=== PATIENT | female | born 1990 | race Caucasian/White ===

== ENCOUNTER 2018-07-23 19:10 | Outpatient (CLI) | payer OTHER, SELFPAY ==
[2018-07-23 19:51] VITALS: BMI 48.3
[2018-07-23 19:54] LABS: Mucous, Urine 0 SEEN /hpf (<or=2+)
[2018-07-23 20:00] LABS: Color, Urine Yellow (Yellow); Glucose, Dipstick Normal (Normal); Ketone-Dipstick Negative (Negative); Leukocyte Esterase-Dipstick 25 /ul (Negative); Nitrite-Dipstick Negative (Negative); Occult Blood-Urine Negative /ul (Negative); Protein-Dipstick Negative (Negative); Urine Bilirubin Dipstick Negative (Negative); Urine Clarity Sl. Cloudy (Clear); Urine Urobilinogen Normal (Normal); Urine pH 6.5 (5.0 - 8.0)
[2018-07-23 20:06] LABS: Bacteria 2+ /hpf (None Seen); Red Blood Cells-Urine 0-5 SEEN /hpf (0-5); Squamous Epithelial Cells - UA 10-25 SEEN /hpf (5-10); White Blood Cells 0-5 SEEN /hpf (0-5)
[2018-07-23 20:24] LABS: ROM Internal Control Test YES-OK TO RESULT pt. (Internal QC)
[2018-07-23 20:27] LABS: ROM Patient Test Negative (Negative)
--- NOTE | 2018-07-25 07:08 | OB.TRI.NOTE ---
- Problem List (1) Lower abdominal pain Status: Acute History of Present Illness Date of Service: 07/23/18 Was patient seen by the physician?: No Reason For Visit: R/O LABOR Date of Service: 07/23/18 Final GINO: 08/25/18 Gestational age: 35 Weeks and 4 Days History of Present Illness: Pt presents with lower abd pain for r/o labor. No urinary symptoms. No vb, lof. +FM Allergies No Known Allergies Allergy (Verified 07/23/18 19:52) Laboratory Studies: Laboratory Tests 07/23/18 07/23/18 Range/Units 19:30 19:30 Urine Color Yellow (Yellow) Urine Clarity Sl. Cloudy (Clear) Urine pH 6.5 (5.0 - 8.0) Ur Specific [place] 1.010 (1.002-1.030) Urine Protein Negative (Negative) mg/dl Urine Glucose (UA) Normal (Normal) mg/dl Urine Ketones Negative (Negative) mg/dl Urine Occult Blood Negative (Negative) /ul Urine Nitrite Negative (Negative) Urine Bilirubin Negative (Negative) mg/dL Urine Urobilinogen Normal (Normal) mg/dl Ur Leukocyte Esterase 25 H (Negative) /ul Urine RBC 0-5 SEEN (0-5) /hpf Urine WBC 0-5 SEEN (0-5) /hpf Ur Squamous Epith Cells 10-25 SEEN (5-10) /hpf Urine Bacteria 2+ (None Seen) /hpf Urine Mucus 0 SEEN (<or=2+) /hpf Vag Amniotic Fld Detect Negative (Negative) Impression/Plan - Determine to not be in labor - Urine dip +leuks, urine cx sent
== END 2018-07-23 21:00 | disposition home or self-care (01) ==
LOC: WPOUT 19:37 → WP 19:39
PROVIDERS: Referring Provider Obstetrics & Gynecology; Visit Provider Obstetrics & Gynecology
DX: O26.893 Other specified pregnancy related conditions, third trimester (principal); R10.30 Lower abdominal pain, unspecified; Z3A.35 35 weeks gestation of pregnancy
CPT/HCPCS: 59025; 59050; 81001; 84112; 87086; 87088; 94760; 99218; G0378

== ENCOUNTER 2018-07-25 08:00 | Outpatient (CLI) | payer OTHER, SELFPAY ==
[2018-07-25 08:26] VITALS: BMI 49.1
--- NOTE | 2018-07-25 20:56 | OB.TRI.NOTE ---
History of Present Illness Date of Service: 07/25/18 Was patient seen by the physician?: No Reason For Visit: DECREASE MOVEMENT Date of Service: 07/25/18 Final GINO: 08/25/18 Gestational age: 35 Weeks and 4 Days Allergies No Known Allergies Allergy (Verified 07/23/18 19:52) NST - FHR Rate Baby A Baseline: 145 Variability:: Moderate Accelerations:: 15 x 15 Decelerations:: None NST Reactive:: Yes FHR Category:: Category I Uterine Activity:: quiet Impression/Plan 28-year-old 2 para 1 at 3 5-4/7 weeks gestation for decreased movement with reactive nonstress test. High risk multigravida with history of previous . Kick counts reviewed. Patient was discharged to the office for her routine appointment today.
--- NOTE | 2018-07-25 20:59 | OB.TRI.HP_ITS ---
History of Present Illness Date of Service: 07/25/18 Was patient seen by the physician?: No Reason For Visit: DECREASE MOVEMENT Date of Service: 07/25/18 Final GINO: 08/25/18 Gestational age: 35 Weeks and 4 Days Allergies No Known Allergies Allergy (Verified 07/23/18 19:52) NST - FHR Rate Baby A Baseline: 145 Variability:: Moderate Accelerations:: 15 x 15 Decelerations:: None NST Reactive:: Yes FHR Category:: Category I Uterine Activity:: quiet Impression/Plan 28-year-old 2 para 1 at 3 5-4/7 weeks gestation for decreased mov ement with reactive nonstress test. High risk multigravida with history of previous . Kick counts reviewed. Patient was discharged to the office for her routine appointment today.
== END 2018-07-25 09:00 | disposition home or self-care (01) ==
LOC: WPOUT 08:04 → OBT 08:04
PROVIDERS: Referring Provider Obstetrics & Gynecology; Visit Provider Obstetrics & Gynecology
DX: O36.8130 Decreased fetal movements, third trimester, not applicable or unspecified (principal); Z3A.35 35 weeks gestation of pregnancy; O34.219 Maternal care for unspecified type scar from previous cesarean delivery
CPT/HCPCS: 59025; 59050; 99218; G0378

== ENCOUNTER 2018-08-18 05:30 | Inpatient (IN) | payer OTHER, SELFPAY ==
--- NOTE | 2018-08-15 13:42 | PCM.HP.BLA ---
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 Denies CP, SOB, dizziness, visual changes. Pt reports good FM. Denies VB, LOF or regular Ctx. ? PAST?MEDICAL?HISTORY No past medical history on file. PAST?SURGICAL?HISTORY PAST SURGICAL HISTORY Procedure Laterality Date ? SECTION HX ? ? ? PAST SURGICAL HISTORY OF ? 2008 ? fatty tumor between breasts removed ? FAMILY?HISTORY FAMILY HISTORY Problem Relation Age of Onset ? Hypertension Father ? ? Cancer Maternal Grandfather ? ? Cancer Maternal Grandmother ? ? Cancer Paternal Grandfather ? ? Cancer Paternal Grandmother ? ? Cancer Mother ? ? Thyroid Mother ? ? No Known Problems Sister ? ? other ( at , unknown) Brother ? ? No Known Problems Daughter ? ? 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 CURRENT?MEDICATIONS ? Current Outpatient Medications: doxylamine-pyridoxine, vit B6, (DICLEGIS) 10-10 mg TbEC Take 2 tablets by mouth daily at bedtime. Day 1: Take 2 tabs at bedtime. If symptoms are controlled the next day, continue taking 2 tabs at bedtime. If symptoms persist into the afternoon of Day 2, take 2 tabs at bedtime, then 1 tab the morning of Day 3 and 2 tabs at bedtime. If symptoms are controlled on Day 4, continue with 1 tab in the morning and 2 tabs at bedtime. [id number]-[id number]-FA ( VITAMIN) tab Take 1 tablet by mouth. ? No current facility-administered medications for this visit. Allergies As of Date: 08/15/2018 (No Known Allergies) Fully Assessed 08/15/2018 ? ? REVIEW OF SYSTEMS Abdomen: no pain Bladder: no dysuria.. Expanded ROS: no fever Allergies and current medication updated:Yes ? EXAM: BP 138/78 Wt 256 lb (116.1kg) LMP 10/03/2017 ? GENERAL: pleasant, female in no apparent distress HEENT: Normocephalic and atraumatic NECK: full range of motion DERMATOLOGY: Normal, without lesions, non-icteric and non-hirsute CARDIAC: regular rate and rhythm CHEST: Clear to auscultation Normal inspiratory effort ABDOMEN: soft, non-tender and gravid NEURO: alert and oriented x3,exam grossly non-focal EXTREMITIES: normal ? ASSESSMENT AND PLAN: Encounter Diagnosis ? ? ICD-10-CM ? 1. Previous delivery, antepartum O34.219 URINE OB DIP B/O 2. 38 weeks gestation of Z3A.38 URINE OB DIP B/O ? 3. Consent obtained today 4. Pt has been counseled on risks/benefits and alternatives of surgery including but not limited to anesthesia, bleeding, infection, injury to pelvic structures including bowel, bladder, ureters and vessels. Pt wishes to proceed with surgery at this time. ? ? Alisson Gee MD ? ? ?
[2018-08-18] VITALS (21 sets, daily range): BP systolic 113–151; BP diastolic 64–93; PULSE 93–127; RESP 16–18; TEMP 36.1–36.4; O2SAT 97–100; BMI 48.9
[2018-08-18] MEDS: Lactated Ringers 1,000 ML 999 ML IV (05:46)
[2018-08-18 06:09] LABS: Absolute Lymphocyte Count 1.82 X10^3/ul (0.83-4.51); Absolute Neutrophil Count 7.5 X10^3/uL (2.0-7.7); Basophil# 0.01 X10^3/uL; Basophil% 0.1 % (0-1); Eosinophil# 0.04 X10^3/uL; Eosinophils% 0.4 % (0-5); Hematocrit 37.9 % (37-47); Hemoglobin 12.2 g/dl (12.0-15.0); Lymphocyte # 1.82 X10^3/ul (4.0); Lymphocyte % 17.8 % (19-41); Mean Corp Hgb Conc 32.2 g/gl (32-36); Mean Corpuscular Hgb 27.1 pg (27.0-32.0); Mean Platelet Vol. 10.3 fl (6.2-12.0); Monocyte# 0.78 X10^3/uL; Monocyte% 7.6 % (0-10); Neutrophil # 7.52 X10^3/uL (2.7-7.7); Neutrophil % 73.6 % (47-70); POSITIVE COUNT NO; POSITIVE DIFFERENTIAL NO; POSITIVE MORPHOLOGY NO; Platelet Count 203 K/mm3 (150-450); RBC Distribution Width CV 16.7 % (11.6-14.6); RBC Distribution Width SD 50.4 fl (35.1-43.9); Red Blood Count 4.51 M/mm3 (4.2-5.4); White Blood Count 10.2 K/mm3 (4.4-11.0)
[2018-08-18] MEDS: Lactated Ringers 1,000 ML 150 ML IV (06:44)
[2018-08-18] MEDS: Sodium Citrate/Citric Acid 30 ML UDC PO (07:07)
[2018-08-18] MEDS: Cefazolin 2 GM in 0.9% Normal Saline 100 ML IV (07:15)
[2018-08-18] MEDS: Oxytocin 30 units/NS 500 ml 30 UNITS/500 ML IV.SOLN 167 UNITS IV (07:51)
--- NOTE | 2018-08-18 08:18 | OP.PCM_ITS ---
Delivery Classification: Scheduled Final GINO: 08/25/18 Final GNIO Source: US <20 weeks Gestational age: 39 Weeks and 0 Days Indications for : Repeat Elective Description of Procedure: Surgeon: Dr. Alisson Gee President [employer]: NAKUL Kumar Procedure performed: Repeat section, Anesthesia: Spinal Preoperative diagnosis: Term gestation 39 weeks gestation for an elective repeat section, Postoperative Diagnosis: same- live male Findings: Live male infant born without complication. Nuchal ?1 loose. clear amniotic fluid. Delayed cord clamping performed. Normal tubes and ovaries bilaterally. EBL: 800cc Implantable devices: None Operative note: After informed consent was obtained the patient was taken to the operating room she was given spinal anesthesia. sHe was placed in the supine position. Young straps were placed - She was then prepped and draped in normal sterile fashion. once spinal anesthesia was found to be adequate skin incision was made with a scalpel in a Pfannenstiel fashion. It was carried down to the underlying layer of the fascia. Fascia was then incised midline with scapel and extended laterally using curved hernandez. 2 straight Frank's were placed in the superior aspect of the fascial edge and the rectus muscles were dissected off sharply. Attention was then turned to the inferior aspect where again the fascial edge was grasped with 2 straight Frank clamps tented up and the rectus muscle dissected sharply. At this time the rectus muscles were in the midline bluntly. Using blunt force the peritoneum was then entered. At this time gentle opposing traction was placed. At this time the vesicouterine peritoneum was identified. Uterine incision was made in a low transverse fashion with the scalpel and then entered bluntly. Gentle opposing traction was placed to extend the uterine incision. The membranes were ruptured amniotic fluid clear. 's head was then brought to the uterine incision was delivered atraumatically followed by the rest 's body. Nuchal x1 loose used prior to delivery. At this time delayed cord clamping was performed mouth nose were suctioned. was then handed to the waiting nursery team. The placenta was then removed with gentle traction. The uterus was removed from the intra-abdominal cavity is wrapped in a moist lap. He was cleared of all clots and debris using a moist lap. Ring clamps were placed on the uterine angles. #1 Vicryl suture was used in a running locked fashion for the first layer. Followed by second imbricating layer with #1 Vicryl. At this time then the uterus was placed back into abdominal cavity uterine incision was evaluated and noted to be of good hemostasis. Tubes and ovaries were evaluated they were normal. Great hemostasis was appreciated at this time the uterine incision was again evaluated good hemostasis was appreciated. The peritoneum was grasped with Kellys. Peritoneum was reapproximated using #2 Vicryl suture in a running fashion. Ximena was placed over the muscle layer. Any small oozing was coagulated using the Bovie. the fascia was then reapproximated using #1 pds in a running fashion. Subcutaneous layer was evaluated and Bovie was used for any small oozing that was noted per #2-0 plain gut suture was then used to reapproximate the subcutaneous layer. Ximena placed. 4-0 Vicryl on a Ignacio needle was used to reapproximate the skin in a subcutaneous fashion. Dry sterile dressing was applied. Instrument lap needle count were correct ?2. Anticipated normal postoperative course for this patient. Amniotic Membrane Rupture Type: Artificial Amniotic Fluid Description: Clear Placenta Disposition: [facility] Drain: Elias to straight drain Cord Entanglement: Around neck x 1, loose Cord Vessel Description: 3 Vessels Esitmated Blood Loss (ml): 800 Infant Gender: Male (1 minute): 8 (5 minute): 9 Delayed cord clamping: Yes Pre-op Antibiotic Given: Ancef 2 grams IV x1 Pt instructed on risks of surgery: Bleeding, Anesthesia Risks, Infection, Injury to surrounding structure(s) including bowel and bladder Complications: None - Admit VTE Documentation VTE Present on Admission: Yes VTE Mechan Device Prophylaxis: SCD's VTE Pharm Prophylaxis ordered?: Yes
[2018-08-18] MEDS: Methylergonovine 0.2 MG/ML Ampul IM (09:24)
[2018-08-18] MEDS: Lactated Ringers 1,000 ML 100 ML IV (09:25)
[2018-08-18] MEDS: 0.9% Saline Lock 10 ML Syringe IV ×2 (13:55→20:17)
[2018-08-18] MEDS: Ketorolac 30 MG/ML Syringe IV ×2 (14:01→20:16)
[2018-08-18] MEDS: Acetaminophen 500 MG Tablet 1000 MG PO (16:04)
[2018-08-18] MEDS: Senna/Docusate Sodium 1 Tablet PO (17:28)
[2018-08-19] VITALS (9 sets, daily range): BP systolic 126–148; BP diastolic 76–81; PULSE 97–130; RESP 16–18; TEMP 36.2–36.9; O2SAT 96–100
[2018-08-19] MEDS: Acetaminophen 500 MG Tablet 1000 MG PO ×3 (00:19→21:50)
[2018-08-19] MEDS: Ketorolac 30 MG/ML Syringe IV ×4 (02:44→20:16)
[2018-08-19] MEDS: 0.9% Saline Lock 10 ML Syringe IV ×4 (02:45→20:16)
[2018-08-19 04:44] LABS: Hematocrit 31.8 % (37-47); Hemoglobin 10.2 g/dl (12.0-15.0); Mean Corp Hgb Conc 32.1 g/gl (32-36); Mean Corpuscular Hgb 27.6 pg (27.0-32.0); Mean Corpuscular Volume 85.9 fL (81-99); Platelet Count 165 K/mm3 (150-450); RBC Distribution Width SD 52.8 fl (35.1-43.9); White Blood Count 9.5 K/mm3 (4.4-11.0)
[2018-08-19 04:46] LABS: Scan Indicated on CBC? Y/N NO
[2018-08-19] MEDS: Enoxaparin 40 MG/0.4 ML Syringe SC (06:00)
--- NOTE | 2018-08-19 07:54 | PCM.PN.OB ---
Subjective: Patient sitting up in bed at this time reporting intermittent sleep overnight. Patient working on latch with infant, she was told the may have a small tongue tie. getting tired at breast easily and has a shallow latch. Patient reports no pain with latch and denies any pain, bruising or ecchymoses. Patient reports that her incision pain is well controlled with Motrin and Toradol. She has not taken any PO narcotics at this time and is not planning on taking any medications. She denies any issues with ambulation or urination. Patient denies FAUSTIN, has a mild pinched nerve in neck that she has a heating pack applied to at this time to help decrease the pain. Objective: VSS, Afebrile Nipples everted no ecchymoses or cracks/blisters at nipple tips Abdomen NT x 4 quadrants, Dressing Dry and Intact +2/4 reflexes in LE, trace pedal edema noted, negative calf tenderness to palpation scant rubra lochia - Physical Exam General: Alert, Oriented x3, Cooperative HEENT: Atraumatic, Normocephalic Lungs: Normal air movement Cardiovascular: Regular rate, No murmurs Abdomen: Soft, Non Tender Extremities: No edema, Capillary Refill Less than 3 Seconds Skin: No rashes, No breakdown Musculoskeletal: No Tenderness to Palpation of Joints or Extremities Neurological: Cranial nerves II-XII grossly intact Psych/Mental Status: Normal Affect, Appropriate Vital Signs Temp Pulse Resp BP Pulse Ox 98.4 F 114 H 18 128/76 H 96 08/19/18 04:19 08/19/18 06:22 08/19/18 06:22 08/19/18 04:19 08/19/18 06:22 Oxygen Delivery Method Room Air Weight: 259 lb 0.69 oz Body Mass Index (BMI) 48.9 Intake and Output for Last 24 Hours 08/17/18 08/18/18 08/19/18 23:59 23:59 23:59 Intake Total 4356 / 4356 582 / 582 Output Total 2475 / 2475 450 / 450 Balance 1881 / 1881 132 / 132 Laboratory Tests Past 24 Hrs 08/19/18 04:25 WBC 9.5 RBC 3.70 L Hgb 10.2 L Hct 31.8 L MCV 85.9 MCH 27.6 MCHC 32.1 RDW 17.0 H RDW Differential 52.8 H Plt Count 165 MPV 10.0 Medical Necessity - Tobacco Use Smoking Status: Never smoker Assessment/Plan All Active Problems Lower abdominal pain (Acute) 28 y/o s/p rpt LTCS, POD #1, Normal PP Course P: 1) Continue present orders 2) Anticipate discharge to home tomorrow Taina LUX
[2018-08-19] MEDS: Senna/Docusate Sodium 1 Tablet PO (08:24)
[2018-08-20] MEDS: 0.9% Saline Lock 10 ML Syringe IV (02:16)
[2018-08-20] MEDS: Ketorolac 30 MG/ML Syringe IV (02:16)
[2018-08-20 02:22] VITALS: BP 134/79; PULSE 96; RESP 18; TEMP 36.5; O2SAT 100
[2018-08-20] MEDS: Enoxaparin 40 MG/0.4 ML Syringe SC (05:34)
[2018-08-20 07:19] VITALS: BP 127/72; PULSE 110; RESP 16; TEMP 36.7; O2SAT 99
[2018-08-20] MEDS: oxyCODONE 5 MG Tablet PO (07:40)
--- NOTE | 2018-08-20 07:44 | DCINST_ITS ---
Discharge Diet: No Restrictions Discharge Activity: May Not Drive - for 2 weeks or while taking narcotic pain meds., May Shower, May Take a Tub Bath - in 7 days. May resume sexual activity in: 4-6 weeks Lifting Restrictions: 20 pounds Additional Activity Instructions:: Nothing in the vagina for 4-6 weeks. You may return to work/school in 6 weeks. Call your doctor if your incision/area has: Continuous Slow Oozing, Sudden Increased Bleeding, Increased Pain/ Swelling, Increased Redness, Foul Smelling Discharge Call your doctor if you observe: Fever of 101 or Higher, Inability to urinate, Inability to have a bowel movement, Using more than one pad per hour, Uncontrolled pain Suture Line Care: Avoid Pulling/Pushing, Avoid Pinching/Bending Additional Instructions: If you experience any of the following, contact your healthcare provider. * Bleeding that soaks a pad every hour for 2 hours * Fever 100.4 or higher * Unrelieved incision or abdominal pain * Swelling, redness, discharge or bleeding from your incision or episiotomy site * Your incision begins to separate * Problems urinating (including inability to urinate or burning while urinating). * Visual changes * Severe headache * Flu-like symptoms * Pain or redness in one of both of your breasts * Pain, warmth, tenderness or swelling in your legs, especially the calf area * Frequent nausea and vomiting * Symptoms of depression or anxiety If you experience any of the following, call 911 or go to the nearest Emergency Room. * Chest pain * Problems breathing * Seizure activity * Partial or complete paralysis of a body part, slurred speech, weakness or drooping of the face, or a sudden inability to walk or hold your balance Allergies/Adverse Reactions: Allergies latex Allergy (Verified 08/18/18 06:25) Rash Medications to take at Discharge Vits [Prenatabs FA ] 1 tablet PO DAILY 07/23/18 Acetaminophen [Tylenol] 1,000 mg PO Q8H PRN #30 tab 08/20/18 Ibuprofen [Motrin] 600 mg PO Q6H PRN PRN #60 tab 08/20/18 Oxycodone [Oxyir] 5 - 10 mg PO Q4H PRN PRN 7 Days #10 tab 08/20/18 Senna/Docusate Sodium [Senokot-S] 1 tab PO DAILY PRN #7 tab 08/20/18 The following prescriptions were given: Ibuprofen [Motrin] 600 mg PO Q6H PRN PRN #60 tab PRN Reason: Mild Pain (1-04/23) Transmission Status: Pending to [facility] Oxycodone [Oxyir] 5 - 10 mg PO Q4H PRN PRN 7 Days #10 tab PRN Reason: Mod-Severe Pain (-11/23) Prescription Printed Senna/Docusate Sodium [Senokot-S] 1 tab PO DAILY PRN #7 tab PRN Reason: Constipation Transmission Status: Pending to [facility] Acetaminophen [Tylenol] 1,000 mg PO Q8H PRN #30 tab PRN Reason: Mild Pain (-04/23) Transmission Status: Pending to [facility] Follow-Up: Call to make an appointment with your doctor for an incision check in 1-2 weeks. You will also need a 6 week post- follow up appointment. Test results from this visit will be discussed in further detail at your follow- up appointment, if applicable. Please Follow Up With: Alisson Gee MD Primary Care Physician: Care Physician,No Primary [Primary Care Provider] - Proposed Discharge Date: 08/20/18
--- NOTE | 2018-08-20 07:45 | PCM.PN.OB ---
Subjective: Patient sitting up in bed, reports no issues this morning. Patient desires discharge to home. Notes that incision pain is well controlled and that she is able to ambulate and get up to bathroom without difficulty. Patient reports scant vaginal bleeding, denies any issues with latch or . Objective: VSS, Afebrile Nipples without cracks or blisters, no ecchymoses noted Abdomen NT x 4 quadrants, dressing dry and intact, FF midline 3FB below umbilicus +2/4 reflexes in LE, trace LE non-pitting edema scant rubra lochia - Physical Exam General: Alert, Oriented x3, Cooperative HEENT: Atraumatic, Normocephalic Lungs: Normal air movement Cardiovascular: Regular rate, Regular Rhythm Abdomen: Soft, Non Tender, - - Dressing dry and intact, FF midline 3FB below umbilicus Extremities: No edema, Capillary Refill Less than 3 Seconds, Peripheral Pulses Normal Skin: No rashes, No breakdown Musculoskeletal: No Tenderness to Palpation of Joints or Extremities Neurological: Cranial nerves II-XII grossly intact Psych/Mental Status: Normal Affect, Appropriate Vital Signs Temp Pulse Resp BP Pulse Ox 98.0 F 110 H 16 127/72 H 99 08/20/18 07:19 08/20/18 07:19 08/20/18 07:19 08/20/18 07:19 08/20/18 07:19 Oxygen Delivery Method Room Air Weight: 259 lb 0.69 oz Body Mass Index (BMI) 48.9 Intake and Output for Last 24 Hours 08/18/18 08/19/18 08/20/18 23:59 23:59 23:59 Intake Total 4356 / 4356 582 / 582 Output Total 2475 / 2475 450 / 450 Balance 1881 / 1881 132 / 132 Medical Necessity - Tobacco Use Smoking Status: Never smoker Assessment/Plan All Active Problems Lower abdominal pain (Acute) 28 y/o s/p Rpt LTCS, POD #2, Normal PP Course P: 1) Discharge patient to home pending discharge 2) Post-op incision care reviewed 3) RTC at 2 weeks PP for incision check visit with physician provider Taina LUX
[2018-08-20] MEDS: Senna/Docusate Sodium 1 Tablet PO (07:55)
--- NOTE | 2018-08-24 19:28 | NURSING ---
Mother pumping and latching . Baby is gaining weight. Mother states Lilibeth Dos Santos and Karolina were helpful and Jessica helped her with latching.
== END 2018-08-20 08:15 | disposition home or self-care (01) | DRG 788 ==
PROVIDERS: Admitting Provider Obstetrics & Gynecology; Referring Provider Obstetrics & Gynecology; Visit Provider Obstetrics & Gynecology
PROC: 10D00Z1 Extraction of Products of Conception, Low, Open Approach (ICD-10-PCS; CPT 59514; principal; 2018-08-18 07:15)
DX: O65.5 Obstructed labor due to abnormality of maternal pelvic organs (principal); O34.219 Maternal care for unspecified type scar from previous cesarean delivery; O69.81X0 Labor and delivery complicated by cord around neck, without compression, not applicable or unspecified; Z3A.39 39 weeks gestation of pregnancy; Z37.0 Single live birth
CPT/HCPCS: 85025; 85027; 86850; 86900; 99218; J7120; A4216; G0378; J2405

== ENCOUNTER 2022-02-01 09:40 | Emergency (ER) | payer OTHER, MEDICAID, SELFPAY ==
[2022-02-01 09:41] VITALS: BP 159/106; PULSE 88; RESP 16; TEMP 36.4; O2SAT 100; BMI 35.9
--- NOTE | 2022-02-01 09:56 | ED.VIS.GI ---
HPI HPI - GI History of Present Illness Chief Complaint: Abd Pain Detail of Chief Complaint: Suprapubic abdominal pain for 2 days. Informant: patient Abdominal Pain/Flank Pain Onset: Days Context: Gradual Onset Timing: Continuous Quality: Aching Location: - (Suprapubic only.) Current Severity: Mild Maximum Severity: Mild Worsened by: Nothing Relieved by: Nothing Nausea/Vomiting/Emesis GI Symptom: Negative for Nausea or Vomiting Diarrhea/Melena/Hematochezia GI Symptom: Negative for Diarrhea, Melena or Hematochezia Associated Symptoms Associated Symptoms: Positive for Dysuria; Negative for Frequency, Hematuria or Urgency Narrative Narrative: 31-year-old female no seen past medical history. 2 prior C-sections. No other abdominal surgeries. Complains of lower abdominal pain for last 2 days. Denies any nausea vomiting diarrhea. Denies any fever or chills. She has had bowel movements today. Denies any trauma. No vaginal bleeding or discharge. Last menstrual period was 12/15/2021. States she does have some discomfort at the end of urination. Denies her urine being cloudy or bloody. Prior similar symptoms: No Recent Illness/Hospitalization: No PFSH PFSH Medical History no medical history no medical history Home Medications vits,calcium no.78-iron fumarate-folic acid 29 mg-1 mg tablet (Prenatabs FA) 1 tab PO DAILY 07/23/18 [History Last Taken 08/17/18 18:00 1 tab] acetaminophen 500 mg tablet 1,000 mg PO Q8H PRN Mild Pain (1-3/10) #30 tabs 08/20/18 [Rx Last Taken Unknown] ibuprofen 600 mg tablet 600 mg PO Q6H PRN PRN Mild Pain (1-3/10) #60 tabs 08/20/18 [Rx Last Taken Unknown] sennosides 8.6 mg-docusate sodium 50 mg tablet 1 tab PO DAILY PRN Constipation #7 tabs 08/20/18 [Rx Last Taken Unknown] Allergy/AdvReac Type Severity Reaction Status Date / Time latex Allergy Rash Verified 02/01/22 09:42 Social History Smoking Status: Never smoker ROS ROS ED ROS Narrative Mild dysuria. Suprapubic abdominal pain. Review of Systems ROS Unobtainable: Denies due to encephalopathy Constitutional Constitutional ED: Denies chills or fever(s) ENT ENT ED: Denies ear pain Cardiovascular Cardiovascular: Denies chest pain Respiratory/Chest Respiratory/Chest: Denies cough or dyspnea Gastrointestinal Gastrointestinal: Reports abdominal pain; Denies constipation, diarrhea, melena, nausea or vomiting Genitourinary Genitourinary ED: Reports dysuria; Denies hematuria Musculoskeletal Musculoskeletal: Denies arthralgias Integumentary Denies abscess Neurologic Neurologic: Denies headache(s) Psychiatric Psychiatric: Denies anxiety Endocrine Endocrinology: Denies polydipsia Hematologic/Lymphatic Hematologic/Lymphatic: Denies easy bleeding Allergic/Immunologic Allergic/Immunologic ED: Denies mouth swelling or tongue swelling EXAM Physical Exam Narrative Exam Narrative: 31-year female no acute distress. Vital signs stable afebrile. Patient does not look septic or toxic. H EENT exam unremarkable. Neck nontender. Lungs clear to auscultation. Heart regular rhythm rate about 90 no murmur. Abdomen soft nondistended normal bowel sounds no peritoneal signs. The only area of tenderness is suprapubically. Both the right upper and right lower quadrants are unremarkable. No distention. No hernia or mass. No obstruction. No signs of trauma. Moving all 4 extremities. Back nontender. Neurologic exam normal. Const Vital Signs: 02/01/22 09:41 02/01/22 11:40 Temperature 97.6 F L Temperature Source Temporal Pulse Rate 88 Respiratory Rate 16 16 Blood Pressure 159/106 H Blood Pressure Mean 123 Pulse Ox 100 Oxygen Delivery Method Room Air Positive well nourished, well developed and obese; Negative for cachectic, contractures or unkempt General Appearance ED: well developed and NAD; Negative for unkempt, cachectic, contractures or pallor Nutritional Appearance: obese; Negative for cachectic HEENT Reports moist mucous membranes normocephalic and atraumatic; Negative for trauma or tenderness Eyes PERRL and EOMs intact bilaterally General Eye ED: Negative for pale conjunctiva or scleral icterus Neck no lymphadenopathy, supple and no JVD General: Negative for tenderness Carotids: Negative for other Lymph Lymphatic: Negative for other Resp normal respiratory effort and clear to auscultation bilaterally Effort and Inspection: Negative for respiratory distress or retractions Auscultation: Negative for rales, rhonchi or wheezes Cardio regular rate, regular rhythm, S1 normal heart sound, S2 normal heart sound and no murmurs Rate: Negative for bradycardia or tachycardic Rhythm: Negative for abnormal rhythm GI non-tender, non-distended and no masses Inspection: Negative for abdominal distention Auscultation: normoactive bowel sounds Palpation: soft; Negative for tender, guarding, rigid, hepatomegaly or splenomegaly Back/Spine no CVA tenderness General Back: Negative for CVA tenderness Cervical Spine: Negative for cervical spine tenderness Thoracic Spine / Upper Back: Negative for thoracic spinal tenderness Lumbar Spine / Lower Back: Negative for lumbar spinal tenderness Coccyx: Negative for other Extremity full ROM General Extremety ED: Negative for edema or tenderness General Extremity: Negative for edema Neuro CN's II-XII intact bilaterally, moves all extremities and no sensory deficits noted Sensorium / Orientation: alert, oriented to person, oriented to place and oriented to time; Negative for orientation impaired, confused, lethargic or stuporous Sensory Exam: No sensory level loss detected Motor Exam: strength 5/5 throughout; Negative for general weakness Psych mental status grossly normal and thought process normal Appearance: Negative for unkempt Attitude: No agitated Mood & Affect: Negative for depressed, anxious or tearful Skin no wounds General Skin Exam: Negative for jaundice or pallor Rashes: no rashes Trauma: Negative for abrasion Nails: Negative for discolored MDM MDM MDM Narrative Medical decision making narrative: Patient with 2-day history of suprapubic abdominal pain mild dysuria. Possibly UTI. Abdominal exam is benign except for mild suprapubic tenderness. Both the right upper and right lower quadrants are unremarkable. I do not think this is her appendix or gallbladder. Urinalysis and urine test will be obtained. Repeat exam at 11:29 AM unchanged. She and I discussed her urinalysis. We will get a CAT scan and a CBC and chemistry. I am really not convinced at this time this is a UTI plus this is a contaminated specimen. Repeat exam patient doing well at 1:25 PM. Will be discharged home. Tylenol Motrin for pain. Follow-up if not improving. I will not started on antibiotics at this time. I am not convinced this is a urinary tract infection. Lab Data Attestation: I reviewed the patient's lab results. Lab results narrative: Urinalysis shows limited specimen with 5-10 white cells, 10-12 epithelial cells, 4+ bacteria no nitrates or red cells. Last time she had a urinalysis like this the culture was negative. Urine test negative. CBC White count is normal at 8.1. H&H 12.8 and 40. Electrolytes unremarkable gap of 5. Normal BUN of 11 creatinine 0.66. Glucose 89. CAT scan of the abdomen pelvis was unremarkable. Labs: Laboratory Results - last 24 hr 02/01/22 02/01/22 02/01/22 10:00 11:40 11:40 WBC 8.1 RBC 4.93 Hgb 12.8 Hct 40.8 MCV 82.8 MCH 26.0 L MCHC 31.4 L RDW Std Deviation 43.1 RDW Coeff of Izaiah 14.4 Plt Count 289 MPV 9.5 Immature Gran % (Auto) 0.400 Neut % (Auto) 62.5 Lymph % (Auto) 28.4 Harrison % (Auto) 7.5 Eos % (Auto) 0.7 Baso % (Auto) 0.5 Absolute Neuts (auto) 5.0 Absolute Lymphs (auto) 2.29 Nucleated RBC % 0 Sodium 137 Potassium 3.8 Chloride 105 Carbon Dioxide 27.0 Anion Gap 5 BUN 11 Creatinine 0.66 Estim Creat Clear Calc 94.05 Est GFR (MDRD) Af Amer 136 Est GFR (MDRD) Non-Af 112 BUN/Creatinine Ratio 16.8 Glucose 89 Calcium 9.4 Urine Color Yellow Urine Clarity Cloudy Urine pH 6.0 Ur Specific [place] 1.020 Urine Protein 15 H Urine Glucose (UA) Normal Urine Ketones Negative Urine Occult Blood Negative Urine Nitrite Negative Urine Bilirubin Negative Urine Urobilinogen Normal Ur Leukocyte Esterase 500 H Urine RBC 0 SEEN Urine WBC 5-10 SEEN Ur Squamous Epith Cells 10-25 SEEN Urine Bacteria 4+ Urine Mucus 0 SEEN Urine Test Negative Radiography Diagnostic Testing: Clinical Impression(s) from Imaging Studies Abdomen/Pelvis CT 02/01/22 11:28 IMPRESSION: No acute abnormality is seen. Electronically Signed: Bradly Robles MD at 12:38 EST , Discharge Plan Triage Chief Complaint: Abd Pain ED Provider: [place] [facility]oad[facility] Dx/Rx/DC Orders Clinical Impression: Lower abdominal pain Instructions: Abdominal Pain Prescriptions: No Action sennosides-docusate sodium 1 TABLET tablet 1 tab PO DAILY PRN (Reason: Constipation) Qty: 7 0RF acetaminophen 500 MG tablet 1,000 mg PO Q8H PRN (Reason: Mild Pain (-04/23)) Qty: 30 0RF ibuprofen 600 MG tablet 600 mg PO Q6H PRN PRN (Reason: Mild Pain (-04/23)) Qty: 60 0RF [id number] [Prenatabs FA] 1 TABLET tablet 1 tab PO DAILY Primary Care Provider: Care Physician,No Primary Referrals: Pablo George MD [Med Staff - Header Setup Operator] - 3-5 Days if not improving Care Physician,No Primary [Primary Care Provider] - Activity Restrictions/Additional Instructions: Tylenol and Motrin for pain. Follow-up with a local doctor if not improving or return if worse. Disposition Disposition: Home, Self Care
[2022-02-01 10:10] LABS: Mucous, Urine 0 SEEN /hpf (<or=2+); Red Blood Cells-Urine 0 SEEN /hpf (0-5)
[2022-02-01 10:12] LABS: Color, Urine Yellow (Yellow); Glucose, Dipstick Normal (Normal); Ketone-Dipstick Negative (Negative); Leukocyte Esterase-Dipstick 500 /ul (Negative); Nitrite-Dipstick Negative (Negative); Occult Blood-Urine Negative /ul (Negative); Protein-Dipstick 15 mg/dl (Negative); Urine Bilirubin Dipstick Negative (Negative); Urine Clarity Cloudy (Clear); Urine Urobilinogen Normal (Normal)
[2022-02-01 10:15] LABS: Internal QC Validated? YES +Cl - CLEAR BKGD; Pregnancy, Urine Negative Negative
[2022-02-01 10:20] LABS: Squamous Epithelial Cells - UA 10-25 SEEN /hpf (5-10)
[2022-02-01 10:21] LABS: Bacteria 4+ /hpf (None Seen)
[2022-02-01 10:22] LABS: White Blood Cells 5-10 SEEN /hpf (0-5)
--- NOTE | 2022-02-01 11:28 | CT_ITS ---
STUDY: CT ABDOMEN AND PELVIS WITH CONTRAST REASON FOR EXAM: Female, 31 years old. 2 day history of suprapubic pain. RADIATION DOSAGE (If Supplied By Facility): CTDIvol = ( 18.70 ) mGy, DLP = ( 1295.47 ) mGycm TECHNIQUE: Transaxial images were obtained from the dome of the diaphragm to the symphysis pubis without oral contrast. IV 100mL Isovue-370 was administered. Sagittal and coronal images were reconstructed. Individualized dose optimization techniques were used for this CT. COMPARISON: None. FINDINGS: The visualized lung bases are unremarkable. The visualized portions of the heart are within normal limits. Normal liver. Normal gallbladder and extrahepatic biliary system. Normal spleen. Normal pancreas. Normal bilateral adrenal glands. Normal right kidney. Normal left kidney. Normal visualized stomach. Normal small intestine. Normal colon. The appendix is visualized and appears normal. Normal abdominal aorta. Normal inferior vena cava. Normal retroperitoneum. Normal urinary bladder. Follicles are seen in the left ovary. Normal abdominal wall. Normal osseous structures. CT/Abdomen/Pelvis W IV Cont ONLY IMPRESSION: No acute abnormality is seen. Electronically Signed: Bradly Robles MD at 12:38 [facility] ,
[2022-02-01 11:40] VITALS: RESP 16
[2022-02-01 11:53] LABS: Absolute Lymphocyte Count 2.29 X10^3/uL (0.83-4.51); Basophil# 0.04 X10^3/uL; Basophil% 0.5 % (0-1); Eosinophil# 0.06 X10^3/uL; Eosinophils% 0.7 % (0-5); Hematocrit 40.8 % (37-47); Hemoglobin 12.8 g/dL (12.0-15.0); Lymphocyte # 2.29 X10^3/ul (0.83-4.51); Lymphocyte % 28.4 % (19-41); Mean Corp Hgb Conc 31.4 g/dL (32-36); Mean Corpuscular Volume 82.8 fL (81-99); Mean Platelet Vol. 9.5 fl (6.2-12.0); Monocyte% 7.5 % (0-10); NRBC Flagged by Analyzer 0 % (0-5); Neutrophil # 5.03 X10^3/uL (2.7-7.7); Neutrophil % 62.5 % (47-70); Platelet Count 289 K/mm3 (150-450); RBC Distribution Width CV 14.4 % (11.6-14.6); RBC Distribution Width SD 43.1 fl (35.1-43.9); Red Blood Count 4.93 M/mm3 (4.2-5.4); White Blood Count 8.1 K/mm3 (4.4-11.0)
[2022-02-01 12:05] LABS: Anion Gap 5 (5-15); BUN 11 mg/dL (7-18); BUN/Creat Ratio 16.8 RATIO (10-20); Calcium,Total 9.4 mg/dL (8.5-10.1); Chloride 105 mmol/L (98-107); Creatinine, Serum 0.66 mg/dL (0.55-1.02); EST Glomerular Filtration Rate 112 mL/min (>60); Est Glom Filt Rate - Afr Amer 136 mL/min (>60); Estimated Creatinine Clearance 94.05 ml/min; Glucose 89 mg/dL (74-106); Potassium 3.8 mmol/L (3.5-5.1); Sodium Level 137 mmol/L (136-145)
[2022-02-01 14:54] VITALS: BP 136/97; PULSE 80; RESP 14; O2SAT 100
--- NOTE | 2022-02-03 07:24 | EDS_ITS ---
HPI History of Present Illness Chief Complaint: Abd Pain PFSH PFSH Medical History no medical history Home Medications vits,calcium no.78-iron fumarate-folic acid 29 mg-1 mg tablet (Prenatabs FA) 1 tab PO DAILY 07/23/18 [History Last Taken 08/17/18 18:00 1 tab] acetaminophen 500 mg tablet 1,000 mg PO Q8H PRN Mild Pain (1-3/10) #30 tabs 08/20/18 [Rx Last Taken Unknown] ibuprofen 600 mg tablet 600 mg PO Q6H PRN PRN Mild Pain (1-3/10) #60 tabs 08/20/18 [Rx Last Taken Unknown] sennosides 8.6 mg-docusate sodium 50 mg tablet 1 tab PO DAILY PRN Constipation #7 tabs 08/20/18 [Rx Last Taken Unknown] Allergy/AdvReac Type Severity Reaction Status Date / Time latex Allergy Rash Verified 02/01/22 09:42 Social History Smoking Status: Never smoker [facility] MDM Radiography Diagnostic Testing: Clinical Impression(s) from Imaging Studies Abdomen/Pelvis CT 02/01/22 11:28 IMPRESSION: No acute abnormality is seen. Electronically Signed: Bradly Robles MD at 12:38 EST , Discharge Plan Triage Chief Complaint: Abd Pain ED Provider: [place] [facility] Dx/Rx/DC Orders Clinical Impression: Lower abdominal pain Instructions: Abdominal Pain Prescriptions: No Action sennosides-docusate sodium 1 TABLET tablet 1 tab PO DAILY PRN (Reason: Constipation) Qty: 7 0RF acetaminophen 500 MG tablet 1,000 mg PO Q8H PRN (Reason: Mild Pain (1-3/10)) Qty: 30 0RF ibuprofen 600 MG tablet 600 mg PO Q6H PRN PRN (Reason: Mild Pain (1-3/10)) Qty: 60 0RF [id number] [Prenatabs FA] 1 TABLET tablet 1 tab PO DAILY Primary Care Provider: Care Physician,No Primary Referrals: Pablo George MD [Med Staff - Leveling Machine Operator] - 3-5 Days if not improving Care Physician,No Primary [Primary Care Provider] - Activity Restrictions/Additional Instructions: Tylenol and Motrin for pain. Follow-up with a local doctor if not improving or return if worse. Disposition Disposition: Home, Self Care Discharge Date/Time: 02/01/22 14:55
== END 2022-02-01 14:55 | disposition home or self-care (01) ==
PROVIDERS: Emergency Provider Emergency Medicine; Visit Provider Emergency Medicine
DX: R10.30 Lower abdominal pain, unspecified (principal); R10.2 Pelvic and perineal pain; R30.0 Dysuria; E66.9 Obesity, unspecified
CPT/HCPCS: 74177; 80048; 81001; 81025; 85025; 99283; Q9967; A4216

== ENCOUNTER → 2023-05-03 | Outpatient (CLI) | payer OTHER, MEDICAID, SELFPAY ==
[2023-05-03 15:40] LABS: Hematocrit 41.1 % (37-47); Hemoglobin 12.9 g/dL (12.0-15.0); Mean Corp Hgb Conc 31.4 g/dL (32-36); Mean Corpuscular Volume 82.9 fL (81-99); Mean Platelet Vol. 10.1 fl (6.2-12.0); Platelet Count 343 K/mm3 (150-450); RBC Distribution Width CV 14.8 % (11.6-14.6); RBC Distribution Width SD 44.9 fl (35.1-43.9); Red Blood Count 4.96 M/mm3 (4.2-5.4); White Blood Count 8.8 K/mm3 (4.4-11.0)
[2023-05-03 16:19] LABS: Hemoglobin A1c 5.2 % (3.8-5.6)
[2023-05-03 16:39] LABS: AST(SGOT) 23 U/L (15-37); Alanine Aminotransfer ALT/SGPT 36 U/L (13-56); Alkaline Phosphatase 82 U/L (45-117); Anion Gap 9 (5-15); BUN 11 mg/dL (7-18); BUN/Creat Ratio 15.8 RATIO (10-20); Calcium,Total 9.6 mg/dL (8.5-10.1); Chloride 105 mmol/L (98-107); Cholesterol 152 mg/dL (200); EST Glomerular Filtration Rate 104 mL/min (>60); Est Glom Filt Rate - Afr Amer 126 mL/min (>60); Globulin 4.1 g/dL (2.2-4.2); Glucose 90 mg/dL (74-106); High Density Lipoprotein 35 mg/dL; Potassium 3.8 mmol/L (3.5-5.1); Protein, Total 8.1 g/dL (6.4-8.2); Sodium Level 138 mmol/L (136-145); Thyroid Stim Hormone (TSH) 1.09 uIU/mL (0.358-3.74); Triglycerides 250 mg/dL; Very Low Density Lipoprotein 50 mg/dL (5-40)
== END | disposition home or self-care (01) ==
LOC: MFPLAB 12:28
PROVIDERS: Visit Provider Family Medicine
DX: Z00.00 Encounter for general adult medical examination without abnormal findings (principal); R53.83 Other fatigue; Z13.1 Encounter for screening for diabetes mellitus
CPT/HCPCS: 36415; 80053; 80061; 83036; 84443; 85027

== ENCOUNTER → 2023-10-19 | Outpatient (CLI) | payer MEDICAID, SELFPAY | END | disposition home or self-care (01) | LOC: LABSPEC 15:37 | PROVIDERS: Visit Provider Registered Nurse | DX: N39.0 Urinary tract infection, site not specified (principal) | CPT/HCPCS: 87086; 87088 ==

== ENCOUNTER → 2023-10-27 | Outpatient (CLI) | payer MEDICAID, SELFPAY ==
--- NOTE | 2023-10-27 12:00 | RAD_ITS ---
STUDY: X-RAY - LUMBAR SPINE REASON FOR EXAM: Female, 33 years old. Back pain. TECHNIQUE: 2 view(s) of the lumbar spine were obtained. COMPARISON: None FINDINGS: Normal lumbar lordosis. No substantial scoliosis. Normal alignment of the vertebrae. Normal vertebral bodies and endplates. Normal disc space heights. The soft tissue structures are normal. RAD/Lumbar Spine 2 or 3 Views IMPRESSION: Normal x-ray examination of the lumbar spine. Electronically Signed: Chay Romero MD at 13:26 EDT ,
== END | disposition home or self-care (01) ==
PROVIDERS: Referring Provider Registered Nurse; Visit Provider Registered Nurse
DX: M54.9 Dorsalgia, unspecified (principal); R30.0 Dysuria
CPT/HCPCS: 72100; 87086; 87088

== ENCOUNTER 2024-11-07 15:40 | Emergency (ER) | payer MEDICAID, SELFPAY ==
[2024-11-07 15:42] VITALS: BP 149/110; PULSE 90; RESP 17; TEMP 36.7; O2SAT 100; BMI 43.6
[2024-11-07 17:55] LABS: Hematocrit 41.7 % (37-47); Hemoglobin 13.5 g/dL (12.0-15.0); Immature Granulocytes Count 0.040 X10^3/uL (0.0-0.0); Mean Corp Hgb Conc 32.4 g/dL (32-36); Mean Corpuscular Volume 79.6 fL (81-99); Mean Platelet Vol. 9.5 fl (6.2-12.0); NRBC Flagged by Analyzer 0 % (0-5); Platelet Count 336 K/mm3 (150-450); RBC Distribution Width CV 15.2 % (11.6-14.6); RBC Distribution Width SD 43.5 fl (35.1-43.9); Red Blood Count 5.24 M/mm3 (4.2-5.4); White Blood Count 9.0 K/mm3 (4.4-11.0)
[2024-11-07 18:05] LABS: Mucous, Urine 0 SEEN /hpf (<or=2+); Red Blood Cells-Urine 0 SEEN /hpf (0-5)
[2024-11-07 18:30] LABS: AST(SGOT) 22 U/L (<=31); Alanine Aminotransfer ALT/SGPT 24 U/L (<=34); Albumin, Serum 4.8 g/dL (3.5-5.0); Alkaline Phosphatase 91 U/L (35-104); Anion Gap 11 (5-15); BUN 11 mg/dL (4-19); BUN/Creat Ratio 19.6 RATIO (10-20); Calcium,Total 9.9 mg/dL (7.6-11.0); Carbon Dioxide 22.6 mmol/L (21.0-32.0); Chloride 103 mmol/L (98-108); Estimated Creatinine Clearance 153.70 ml/min (50-250); Globulin 3.5 g/dL (2.2-4.2); Glucose 91 mg/dL (70-99); Lipase 34 U/L (13-75); Potassium 4.4 mmol/L (3.3-5.1)
[2024-11-07 19:03] LABS: Internal QC Validated? YES +Cl - CLEAR BKGD; Pregnancy, Serum, hCG Quali. NEGATIVE Negative; Record Kit Lot#, Serum Preg. 964736
[2024-11-07 19:48] LABS: Color, Urine Straw (Yellow); Glucose, Dipstick Normal (Normal); Ketone-Dipstick Negative (Negative); Leukocyte Esterase-Dipstick 100 /ul (Negative); Nitrite-Dipstick Negative (Negative); Occult Blood-Urine Negative /ul (Negative); Protein-Dipstick 15 mg/dl (Negative); Specific Gravity, Urine 1.025 (1.002-1.030); Urine Bilirubin Dipstick Negative (Negative)
--- NOTE | 2024-11-07 20:19 | ED.RN ---
Pt's name called for placement in ED room from waiting room. Unable to locate pt. Assumed LWBS.
--- OUTSIDE RECORDS SUMMARY | 2024-11-07 20:24 | XMS RPT_ITS | CCD ---
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 21703-4 #### [facility] CLIA [id number] [address] [place] [address] [place] PAP TESTon 03-28-2024 ADEQUACY Satisfactory for interpretation. Normal [facility] Comment on above: Order Comment: Speci men Type: FLUID SPECIMEN Ordering Facility: [facility] Address: [address] [place] [address] Performed By: #### L [id number] #### [facility] CLIA [id number] [address] [place] [address] STATES OF [facility] CLIA [id number] [address] [place] [address] [place] CASE REPORT Normal [facility] Comment on above: Order Comment: Speci men Type: FLUID SPECIMEN Ordering Facility: [facility] Address: [address] [place] [address] Result Comment: Gyne cologic Cytology Report Case: [id number] Authorizing Provider: Fay Freeman MD Collected: 03/28/2024 10:14 AM Ordering Location: OB/Gynecology Received: 03/28/2024 12:39 PM First Screen: [place], [place], [place], ASCP Specimen: Pap Test, ThinPrep, Cervix Performed By: #### L [id number] #### [facility] CLIA [id number] [address] [place] [address] [place] [facility] CLIA [id number] [address] [place] [address] [place] CLINICAL HISTORY, CYTOLOGY, LIPCOAT SPRAYER Routine Exam Normal [facility] Comment on above: Order Comment: Speci men Type: FLUID SPECIMEN Ordering Facility: [facility] Address: [address] [place] [address] Performed By: #### L [id number] #### [facility] CLIA [id number] [address] [place] [address] [place] [facility] CLIA [id number] [address] [place] [address] [place] CYTOLOGY PAP OTHER INTERPRETATION Predominance of coccobacilli consistent with shift in vaginal thao. Normal [facility] Comment on above: Order Comment: Speci men Type: FLUID SPECIMEN Ordering Facility: [facility] Address: [address] [place] [address] Performed By: #### L [id number] #### [facility] CLIA [id number] [address] [place] [address] [place] [facility] CLIA [id number] [address] [place] [address] [place] FINAL PERFORMING LAB Normal [facility] Comment on above: Order Comment: Speci men Type: FLUID SPECIMEN Ordering Facility: [facility] Address: [address] [place] [address] Result Comment: Tech nical component, evening anchor screening performed at [facility], [address] [id number] CLIA# [id number] Diagnostic interpretation performed at [facility], [address] [id number] CLIA# [id number] Carpet Or Rug Layer Helper: Jannet Perez M.D. Performed By: #### L [id number] #### [facility] CLIA [id number] [address] [place] [address] [place] [facility] CLIA [id number] [address] [place] [address] [place] INTERPRETATION, CYTOLOGY, LIPCOAT SPRAYER Normal [facility] Comment on above: Order Comment: Speci men Type: FLUID SPECIMEN Ordering Facility: [facility] Address: [address] [place] [address] Result Comment: Nega tive for intraepithelial lesion or malignancy. at 1426 EST Performed By: #### L [id number] #### [facility] CLIA [id number] [address] [place] [address] [place] [facility] CLIA [id number] [address] [place] [address] [place] LMP 03/04/2024 Normal [facility] Comment on above: Order Comment: Speci men Type: FLUID SPECIMEN Ordering Facility: [facility] Address: [address] [place] [address] Performed By: #### L [id number] #### [facility] CLIA [id number] [address] [place] [address] [place] [facility] CLIA [id number] [address] [place] [address] [place] PAP DISCLAIMER COMMENT The Pap Smear is a screening test for cervical cancer. False negative results occur with all screening tests, emphasizing the need for rescreening at recommended intervals, and clinical correlation. Normal [facility] Comment on above: Order Comment: Speci men Type: FLUID SPECIMEN Ordering Facility: [facility] Address: [address] [place] [address] Performed By: #### L [id number] #### [facility] CLIA [id number] [address] [place] [address] [place] [facility] CLIA [id number] [address] [place] [address] [place] PAP IT INFRASTRUCTURE PROJECT MANAGER COMMENT This specimen has been analyzed by the ThinPrep Imaging System, an automated imaging and review system, which assists the laboratory in evaluating cells on ThinPrep Pap tests. Following automated imaging, selected brenner from every slide are reviewed by a evening anchor. Normal [facility] Comment on above: Order Comment: Speci lisbeth Type: FLUID SPECIMEN Ordering Facility: [facility] Address: [address] [place] [address] Performed By: #### L [id number] #### [facility] CLIA [id number] [address] [place] [address] [place] [facility] CLIA [id number] [address] [place] [address] [place] Reagin and Treponema pallidu m IgG and IgM [Interp]on 03-28-2024 T. pallidum IgG+IgM IA Ql (S) Non-Reactive Nonreactive [facility] T. pallidum IgG+IgM IA Ql (S) Non-Reactive Normal Nonreactive [facility] Comment on above: Order Comment: Caini men Type: BLOOD SPECIMEN Ordering Facility: [facility] Address: [address] [place] [address] Performed By: #### 7 3752-8, 5195-3, #### [facility] CLIA [id number] [address] [place] [address] [place] Reagin+T pallidum IgG+IgM Se rPl-Impon 03-28-2024 Reagin and Treponema pallidum IgG and IgM [Interp] Cannot exclude recent Treponemal infection if specimen collected within 7-10 days after appearance of suspect lesions or 2-3 weeks after an exposure. Clinical correlation is required. Normal [facility] Comment on above: Order Comment: Caini lisbeth Type: BLOOD SPECIMEN Ordering Facility: [facility] Address: [address] [place] [address] Performed By: #### 7 3752-8, 5195-3, 53983-4 #### [facility] CLIA [id number] [address] [id number] [place] SYPHILIS TREPONEMAL W/REFLEX on 03-28-2024 Reagin and Treponema pallidum IgG and IgM [Interp] Cannot exclude recent Treponemal infection if specimen collected within 7-10 days after appearance of suspect lesions or 2-3 weeks after an exposure. Clinical correlation is required. [facility] FEMALE PELVIS TRANSVAGon 01-05-2024 US FEMALE PELVIS TRANSVAG * * *Final Report* * * DATE OF EXAM: Jan 05 2024 10:37AM WRU 1060 - US FEMALE PELVIS TRANSVAG / PROCEDURE REASON: R19 * * * * Physician Interpretation * * * * EXAMINATION: TRANSVAGINAL AND LIMITED TRANSABDOMINAL FEMALE PELVIC ULTRASOUND CLINICAL HISTORY: Pelvic pain. Right lower quadrant pain TECHNIQUE: Sonography of the pelvis was performed by transvaginal and transabdominal (limited) techniques. Images were obtained and stored in a permanent archive. MQ: [facility]_2021 COMPARISON: None RESULT: Uterus: LMP 12/12/2023 -Size: 11.3 x 5.9 x 7.8 cm -Orientation: Retroverted -Endometrial echo complex: Evaluation of the endometrium was adequate. No endometrial abnormality. The endometrial echo complex measured 1.7 cm. -Cervix: Nabothian cysts present, otherwise unremarkable. -Adenomyosis assessment: There are no sonographic findings of adenomyosis. -Fibroids: There are no fibroids. Right Ovary: 5.4 x 2.3 x 4 cm Normal appearance Left Ovary: 3 x 2 x 2.4 cm Normal appearance. 3 cm follicular cyst within it Free Fluid: No abnormal free fluid is present. Sonographic interrogation of the right lower quadrant in the palpable area of abnormality and pain. This corresponds to the edge of the scar. No abnormal fluid or mass is seen IMPRESSION: Normal ultrasound of the pelvis Svp Marketing: PSCB Transcribe Date/Time: Jan 06 2024 9:47A Dictated by : ABIDA NORIEGA MD This examination was interpreted and the report reviewed and electronically signed by: ABIDA NORIEGA MD on Jan 06 2024 9:51AM EST [id number] Normal [facility] Urine Cultureon 10-28-2023 U[facility] Order Date: 10/24/23 Order Info: 630-4 - CUUR Comments: dysuria Mixed Gram Pos Gram Neg Org [place] Count 11,000-25,000 MIXC Mixed contaminants. Submit a new specimen if indicated. Normal [facility] Comment on above: Performed By: #### L 3400.1750, L3100.3400, L509.4015, L3100.0539 #### [facility] [address] [place], [place], [address] Lumbar Spine 2 or 3 Viewson 10-27-2023 Lumbar Spine 2 or 3 Views [facility] [address] [place], [place] [address] Lumbar Spine 2 or 3 Views MR#: [id number] Acct: [id number] Name: DAT HIGGINS Rep #: [id number] : 1990 F 33 From: Chay Romero MD PCP: Care Physician,No Primary Status: REG CLI Study: Lumbar Spine 2 or 3 Views Date of Exam: Exam# [id number] Ordering Dr: Yuliya Borges JOGGLE PRESS OPERATOR -C [id number] STUDY: X-RAY - LUMBAR SPINE REASON FOR EXAM: Female, 33 years old. Back pain. TECHNIQUE: 2 view(s) of the lumbar spine were obtained. COMPARISON: None FINDINGS: Normal lumbar lordosis. No substantial scoliosis. Normal alignment of the vertebrae. Normal vertebral bodies and endplates. Normal disc space heights. The soft tissue structures are normal. RAD/Lumbar Spine 2 or 3 Views IMPRESSION: Normal x-ray examination of the lumbar spine. Electronically Signed: Chay Romero MD at 13:26 EDT Reading Location ID and State: [address] [place] [address] , Service support , CC: Yuliya Borges; No Primary Care Physician Svp Marketing: Signed Normal [facility] Urine Cultureon 10-21-2023 URC Order Date: 10/19/23 Order Info: 630-4 - CUUR Comments: urinary frequency Mixed Gram Positive Organisms [place] Count 25,000-50,000 MIXC Mixed contaminants. Submit a new specimen if indicated. Normal [facility] Comment on above: Performed By: #### L 3400.1750, L3100.3400, L509.4015, L3100.0539 #### [facility] [address] [place], [address] Mumps Antibody,IgGon 09-26-2 024 MUMPS Ab, IgG 111.0 AU/mL Normal Immune >10.9 [facility] Comment on above: Result Comment: Nega tive <9.0 Equivocal 9.0 - 10.9 Positive >10.9 A positive result generally indicates past exposure to Mumps virus or previous vaccination. Performed By: #### L 3400.1750, L3100.3400, L509.4015, L3100.0539 #### [facility] [address] [place], [address] [facility] EMP Rubeola Titeron 08-1 RUBEOLA Ab, IgG 22.7 AU/mL Normal Immune >16.4 [facility] Comment on above: Result Comment: Nega tive <13.5 Equivocal 13.5 - 16.4 Positive >16.4 Presence of antibodies to Rubeola is presumptive evidence of immunity except when acute infection is suspected. Performed at: [facility] [id number] Lubricator Granulator: Sergio Barnett PhD, Phone: [phone] Performed By: #### L 3400.1750, L3100.3400, L509.4015, L3100.0539 #### [facility] [address] [place], [address] Hepatitis B Surf AB - EMPon 08-12-2024 HEP B Surf Ab Non-Reactive Normal [facility] Comment on above: Result Comment: Non Reactive: Inconsistent with immunity less than <10 mIU/mL Reactive: Consistent with immunity greater than or equal to 10 mIU/mL Performed By: #### L 3400.1750, L3100.3400, L509.4015, L3100.0539 #### [facility] [address] [place], [address] Rubella IgG [facility] EMPLOYEEon 0 09-26-2023 Rubella IgG Reactive Normal Nonreactive [facility] Comment on above: Result Comment: Anti body Results Interpretation of Immune Status Non Reactive Presumed Non-Immune Equivocal Equivocal Reactive Presumed Immune Performed By: #### L 3400.1750, L3100.3400, L509.4015, L3100.0539 #### [facility] [address] [place], [place], [address] Basophil percentageOrdered B y: Kenzie Hoang on 05-03-2023 Bilirubin [Mass/Vol] 0.40 mg/dL 0.20-1.00 [facility] Comment on above: For patients on eltr ombopag therapy, use of Dimension Braymer TBIL is not recommended. Chloride [Moles/Vol] 105 mmol/L 98-107 [facility] Cholesterol [Mass/Vol] 152 mg/dL <200 [facility] Comment on above: <200 mg/dL Desirable 200-240 mg/dL Borderline >240 mg/dL High Risk Glucose [Mass/Vol] 90 mg/dL 74-106 [facility] Hemoglobin (Bld) [Mass/Vol] 12.9 g/dL 12.0-15.0 [facility] Potassium [Moles/Vol] 3.8 mmol/L 3.5-5.1 [facility] Protein [Mass/Vol] 8.1 g/dL 6.4-8.2 [facility] Sodium [Moles/Vol] 138 mmol/L 136-145 [facility] Triglyceride [Mass/Vol] 250 mg/dL <199 [facility] Comment on above: The drugs N-Acetylcy steine and Metamizole may falsely depress this assay.Serum Triglycerides Reference Interval Normal <150 mg/dL Borderline high 150 - 199 mg/dL High 200 - 499 mg/dL Very High > or = 500 mg/dL WBC (Bld) [#/Vol] 8.8 10*3/uL 4.4-11.0 [facility] CBC-Complete Blood Cnt No Di ffon 05-03-2023 Erythrocyte distribution width (RBC) [Ratio] 14.8 % High 11.6-14.6 [facility] Comment on above: Order Comment: Order Date: 05/03/23 Order Info: [id number] - CBC Performed By: #### L 501.9985, L500.4100, L501.9520, L500.4050, L100.0500 #### [facility] [address] [place], [address] Hematocrit (Bld) [Volume fraction] 41.1 % Normal 37-47 [facility] Comment on above: Order Comment: Order Date: 05/03/23 Order Info: [id number] - CBC Performed By: #### L 501.9985, L500.4100, L501.9520, L500.4050, L100.0500 #### [facility] [address] [place], [address] Hemoglobin (Bld) [Mass/Vol] 12.9 g/dL Normal 12.0-15.0 [facility] Comment on above: Order Comment: Order Date: 05/03/23 Order Info: [id number] - CBC Performed By: #### L 501.9985, L500.4100, L501.9520, L500.4050, L100.0500 #### [facility] [address] [place], [address] MCH (RBC) [Entitic mass] 26.0 pg Low 27.0-32.0 [facility] Comment on above: Order Comment: Order Date: 05/03/23 Order Info: [id number] - CBC Performed By: #### L 501.9985, L500.4100, L501.9520, L500.4050, L100.0500 #### [facility] [address] [place], [address] MCHC (RBC) [Mass/Vol] 31.4 g/dL Low 32-36 [facility] Comment on above: Order Comment: Order Date: 05/03/23 Order Info: [id number] - CBC Performed By: #### L 501.9985, L500.4100, L501.9520, L500.4050, L100.0500 #### [facility] [address] [place], [address] MCV (RBC) [Entitic vol] 82.9 fL Normal 81-99 [facility] Comment on above: Order Comment: Order Date: 05/03/23 Order Info: [id number] - CBC Performed By: #### L 501.9985, L500.4100, L501.9520, L500.4050, L100.0500 #### [facility] [address] [place], [address] Platelet mean volume (Bld) [Entitic vol] 10.1 fL Normal 6.2-12.0 [facility] Comment on above: Order Comment: Order Date: 05/03/23 Order Info: [id number] - CBC Performed By: #### L 501.9985, L500.4100, L501.9520, L500.4050, L100.0500 #### [facility] [address] [place], [address] Platelets (Bld) [#/Vol] 343 10*3/uL Normal 150-450 [facility] Comment on above: Order Comment: Order Date: 05/03/23 Order Info: [id number] - CBC Performed By: #### L 501.9985, L500.4100, L501.9520, L500.4050, L100.0500 #### [facility] [address] [place], [address] RBC (Bld) [#/Vol] 4.96 10*6/uL Normal 4.2-5.4 [facility] Comment on above: Order Comment: Order Date: 05/03/23 Order Info: [id number] - CBC Performed By: #### L 501.9985, L500.4100, L501.9520, L500.4050, L100.0500 #### [facility] [address] [place], [address] RDW SD 44.9 fl High 35.1-43.9 [facility] Comment on above: Order Comment: Order Date: 05/03/23 Order Info: [id number] - CBC Performed By: #### L 501.9985, L500.4100, L501.9520, L500.4050, L100.0500 #### [facility] [address] [place], [address] WBC (Bld) [#/Vol] 8.8 10*3/uL Normal 4.4-11.0 [facility] Comment on above: Order Comment: Order Date: 05/03/23 Order Info: [id number] - CBC Performed By: #### L 501.9985, L500.4100, L501.9520, L500.4050, L100.0500 #### [facility] [address] [place], [address] Comprehensive Metabolic Prof pron 05-03-2023 Albumin [Mass/Vol] 4.0 g/dL Normal 3.2-5.0 [facility] Comment on above: Order Comment: Order Date: 05/03/23 Order Info: [id number] - CMP Order Info: [id number] - LIPID Order Info: 3016-3 - TSH Performed By: #### L 501.9985, L500.4100, L501.9520, L500.4050, L100.0500 #### [facility] [address] [place], [place], [address] Albumin/Globulin [Mass ratio] 1.0 {ratio} Normal 0.9-2.4 [facility] Comment on above: Order Comment: Order Date: 05/03/23 Order Info: 0786-1 - CMP Order Info: [id number] - LIPID Order Info: 3015-04 - TSH Performed By: #### L 501.9985, L500.4100, L501.9520, L500.4050, L100.0500 #### [facility] [address] [place], [place], [address] ALK P 82 U/L Normal 45-117 [facility] Comment on above: Order Comment: Order Date: 05/03/23 Order Info: 0786- - CMP Order Info: [id number] - LIPID Order Info: 3015-04 - TSH Performed By: #### L 501.9985, L500.4100, L501.9520, L500.4050, L100.0500 #### [facility] [address] [place], [place], [address] ALT [Catalytic activity/Vol] 36 U/L Normal 13-56 [facility] Comment on above: Order Comment: Order Date: 05/03/23 Order Info: 0786-1 - CMP Order Info: [id number] - LIPID Order Info: 3015-04 - TSH Performed By: #### L 501.9985, L500.4100, L501.9520, L500.4050, L100.0500 #### [facility] [address] [place], [address] AST [Catalytic activity/Vol] 23 U/L Normal 15-37 [facility] Comment on above: Order Comment: Order Date: 05/03/23 Order Info: 0786-1 - CMP Order Info: [id number] - LIPID Order Info: 3015-04 - TSH Performed By: #### L 501.9985, L500.4100, L501.9520, L500.4050, L100.0500 #### [facility] [address] [place], [address] Bilirubin [Mass/Vol] 0.40 mg/dL Normal 0.20-1.00 [facility] Comment on above: Order Comment: Order Date: 05/03/23 Order Info: 0786-1 - CMP Order Info: [id number] - LIPID Order Info: 3015-3 - TSH Result Comment: For patients on eltrombopag therapy, use of Dimension Braymer TBIL is not recommended. Performed By: #### L 501.9985, L500.4100, L501.9520, L500.4050, L100.0500 #### [facility] [address] [place], [address] BUN/CRE 15.8 RATIO Normal 10-20 [facility] Comment on above: Order Comment: Order Date: 05/03/23 Order Info: [id number] - CMP Order Info: - LIPID Order Info: 3 - TSH Performed By: #### L 501.9985, L500.4100, L501.9520, L500.4050, L100.0500 #### [facility] [address] [place], [address] CA,Total 9.6 mg/dL Normal 8.5-10.1 [facility] Comment on above: Order Comment: Order Date: 05/03/23 Order Info: [id number] - CMP Order Info: [id number] - LIPID Order Info: 3 - TSH Performed By: #### L 501.9985, L500.4100, L501.9520, L500.4050, L100.0500 #### [facility] [address] [place], [address] Chloride [Moles/Vol] 105 mmol/L Normal 98-107 [facility] Comment on above: Order Comment: Order Date: 05/03/23 Order Info: 07- - CMP Order Info: [id number] - LIPID Order Info: 3016-3 - TSH Performed By: #### L 501.9985, L500.4100, L501.9520, L500.4050, L100.0500 #### [facility] [address] [place], [address] CO2 [Moles/Vol] 24.0 mmol/L Normal 21.0-32.0 [facility] Comment on above: Order Comment: Order Date: 05/03/23 Order Info: 0786-1 - CMP Order Info: [id number] - LIPID Order Info: 3015-04 - TSH Performed By: #### L 501.9985, L500.4100, L501.9520, L500.4050, L100.0500 #### [facility] [address] [place], [address] Creatinine [Mass/Vol] 0.70 mg/dL Normal 0.55-1.02 [facility] Comment on above: Order Comment: Order Date: 05/03/23 Order Info: 07 - CMP Order Info: - LIPID Order Info: [id number] - TSH Result Comment: The validity of the calculated GFR GFRAA in patients over 70 years has not been determined. Clinical correlation is essential. Performed By: #### L 501.9985, L500.4100, L501.9520, L500.4050, L100.0500 #### [facility] [address] [place], [address] EST GFR - AA 126 mL/min Normal >60 [facility] Comment on above: Order Comment: Order Date: 05/03/23 Order Info: [id number] - CMP Order Info: [id number] - LIPID Order Info: 3015-04 - TSH Result Comment: Afri can Turkmen GFR Calc Performed By: #### L 501.9985, L500.4100, L501.9520, L500.4050, L100.0500 #### [facility] [address] [place], [address] GAP 9 Normal 5-15 [facility] Comment on above: Order Comment: Order Date: 05/03/23 Order Info: 0786 - CMP Order Info: - LIPID Order Info: [id number] - TSH Performed By: #### L 501.9985, L500.4100, L501.9520, L500.4050, L100.0500 #### [facility] [address] [place], [address] GFR/1.73 sq M.predicted among non-blacks MDRD (S/P/Bld) [Vol rate/Area] 104 mL/min/{1.73_m2} Normal >60 [facility] Comment on above: Order Comment: Order Date: 05/03/23 Order Info: [id number] - CMP Order Info: - LIPID Order Info: [id number] - TSH Result Comment: Non- GFR Calc Performed By: #### L 501.9985, L500.4100, L501.9520, L500.4050, L100.0500 #### [facility] [address] [place], [address] Globulin (S) [Mass/Vol] 4.1 g/dL Normal 2.2-4.2 [facility] Comment on above: Order Comment: Order Date: 05/03/23 Order Info: 0786 - CMP Order Info: - LIPID Order Info: 3015-04 - TSH Performed By: #### L 501.9985, L500.4100, L501.9520, L500.4050, L100.0500 #### [facility] [address] [place], [address] Glucose [Mass/Vol] 90 mg/dL Normal 74-106 [facility] Comment on above: Order Comment: Order Date: 05/03/23 Order Info: [id number] - CMP Order Info: [id number] - LIPID Order Info: [id number] - TSH Performed By: #### L 501.9985, L500.4100, L501.9520, L500.4050, L100.0500 #### [facility] [address] [place], [address] Potassium [Moles/Vol] 3.8 mmol/L Normal 3.5-5.1 [facility] Comment on above: Order Comment: Order Date: 05/03/23 Order Info: [id number] - CMP Order Info: [id number] - LIPID Order Info: 3 - TSH Performed By: #### L 501.9985, L500.4100, L501.9520, L500.4050, L100.0500 #### [facility] [address] [place], [address] Sodium [Moles/Vol] 138 mmol/L Normal 136-145 [facility] Comment on above: Order Comment: Order Date: 05/03/23 Order Info: [id number] - CMP Order Info: [id number] - LIPID Order Info: 3 - TSH Performed By: #### L 501.9985, L500.4100, L501.9520, L500.4050, L100.0500 #### [facility] [address] [place], [address] T PROT 8.1 g/dL Normal 6.4-8.2 [facility] Comment on above: Order Comment: Order Date: 05/03/23 Order Info: [id number]- - CMP Order Info: [id number] - LIPID Order Info: 3 - TSH Performed By: #### L 501.9985, L500.4100, L501.9520, L500.4050, L100.0500 #### [facility] [address] [place], [address] Urea nitrogen [Mass/Vol] 11 mg/dL Normal 7-18 [facility] Comment on above: Order Comment: Order Date: 05/03/23 Order Info: [id number] - CMP Order Info: [id number] - LIPID Order Info: 3 - TSH Performed By: #### L 501.9985, L500.4100, L501.9520, L500.4050, L100.0500 #### [facility] [address] [place], [place], [id number] Determination of erythrocyte mean corpuscular volume (MCV)Ordered By: [facility] on 05-03-2023 MCV (RBC) [Entitic vol] 82.9 fL 81-99 [facility] Erythrocyte distribution wid th ratioOrdered By: [facility] on 05-03-2023 Erythrocyte distribution width (RBC) [Ratio] 14.8 % 11.6-14.6 [facility] Erythrocyte distribution wid th standard deviationOrdered By: [facility] on 05-03-2023 Erythrocyte distribution width (RBC) [Entitic vol] 44.9 fL 35.1-43.9 [facility] Hematocrit Auto (Bld) [Volum e fraction]Ordered By: [facility] on 05-03-2023 Hematocrit (Bld) [Volume fraction] 41.1 % 37-47 [facility] Hemoglobin A1con 05-03-2023 HbA1c (Bld) [Mass fraction] 5.2 % Normal 3.8-5.6 [facility] Comment on above: Order Comment: Order Date: 05/03/23 Order Info: [id number] - A1C Result Comment: Norm al < 5.7 % Prediabetic 5.7 - 6.4 % Diabetic >or= 6.5 % Please note range changes. Performed By: #### L 501.9985, L500.4100, L501.9520, L500.4050, L100.0500 #### [facility] [address] [place], [place], [id number] Laboratory - Chemistry and C hemistry - challengeOrdered By: [facility] on 05-03-2023 Albumin/Globulin [Mass ratio] 1.0 {ratio} 0.9-2.4 [facility] ALP [Catalytic activity/Vol] 82 U/L 45-117 [facility] ALT [Catalytic activity/Vol] 36 U/L 13-56 [facility] Cholesterol in HDL [Mass/Vol] 35 mg/dL >40 [facility] Comment on above: The drugs N-Acetylcy steine and Metamizole may falsely depress this assay. Reference Range HDL <40 mg/dL Low HDL Cholesterol HDL >or= 60 mg/dL High HDL Cholesterol Cholesterol in LDL [Mass/Vol] 67 mg/dL 0-130 [facility] CO2 [Moles/Vol] 24.0 mmol/L 21.0-32.0 [facility] Globulin (S) [Mass/Vol] 4.1 g/dL 2.2-4.2 [facility] Urea nitrogen/Creatinine [Mass ratio] 15.8 mg/mg 10-20 [facility] - Hematology and Cell countsOrdered By: Kenzie Hoang on 05-03-2023 MCH (RBC) [Entitic mass] 26.0 pg 27.0-32.0 [facility] MCHC (RBC) [Mass/Vol] 31.4 g/dL 32-36 [facility] Platelet mean volume (Bld) [Entitic vol] 10.1 fL 6.2-12.0 [facility] Platelets (Bld) [#/Vol] 343 10*3/uL 150-450 [facility] Lipid Profileon 05-03-2023 Cholesterol [Mass/Vol] 152 mg/dL Normal 200 [facility] Comment on above: Order Comment: Order Date: 05/03/23 Order Info: [id number] - CMP Order Info: [id number] - LIPID Order Info: [id number] - TSH Result Comment: <200 mg/dL Desirable 200-240 mg/dL Borderline >240 mg/dL High Risk Performed By: #### L 501.9985, L500.4100, L501.9520, L500.4050, L100.0500 #### [facility] [address] [facility] [place], [address] Cholesterol in HDL [Mass/Vol] 35 mg/dL Low [facility] Comment on above: Order Comment: Order Date: 05/03/23 Order Info: [id number] - CMP Order Info: [id number] - LIPID Order Info: [id number] - TSH Result Comment: The drugs N-Acetylcysteine and Metamizole may falsely depress this assay. Reference Range HDL <40 mg/dL Low HDL Cholesterol HDL >or= 60 mg/dL High HDL Cholesterol Performed By: #### L 501.9985, L500.4100, L501.9520, L500.4050, L100.0500 #### [facility] [address], [address] Cholesterol in LDL [Mass/Vol] 67 mg/dL Normal 0-130 [facility] Comment on above: Order Comment: Order Date: 05/03/23 Order Info: [id number] - CMP Order Info: [id number] - LIPID Order Info: [id number] - TSH Performed By: #### L 501.9985, L500.4100, L501.9520, L500.4050, L100.0500 #### [facility] [address] [facility] [place], [address] Cholesterol in VLDL [Mass/Vol] 50 mg/dL High 5-40 [facility] Comment on above: Order Comment: Order Date: 05/03/23 Order Info: [id number] - CMP Order Info: [id number] - LIPID Order Info: [id number] - TSH Performed By: #### L 501.9985, L500.4100, L501.9520, L500.4050, L100.0500 #### [facility] [address] [facility] [place], [address] Triglyceride [Mass/Vol] 250 mg/dL High [facility] Comment on above: Order Comment: Order Date: 05/03/23 Order Info: [id number] - CMP Order Info: [id number] - LIPID Order Info: [id number] - TSH Result Comment: The drugs N-Acetylcysteine and Metamizole may falsely depress this assay. Serum Triglycerides Reference Interval Normal <150 mg/dL Borderline high 150 - 199 mg/dL High 200 - 499 mg/dL Very High > or = 500 mg/dL Performed By: #### L 501.9985, L500.4100, L501.9520, L500.4050, L100.0500 #### [facility] [address] [place], [address] No Panel InformationOrdered By: Kenzie Hoang on 05-03-2023 Estimated GFR (MDRD) Amer 126 mL/min >60 [facility] Comment on above: GFR Calc Estimated GFR (MDRD) Non-Af Amer 104 mL/min >60 [facility] Comment on above: Non- GFR Calc VLDL Cholesterol 50 mg/dL 5-40 [facility] RBC Auto (Bld) [#/Vol]Ordere d By: Kenzie Hoang on 05-03-2023 RBC (Bld) [#/Vol] 4.96 10*6/uL 4.2-5.4 [facility] Serum or plasma calcium chris urement (mass/volume)Ordered By: Kenzie Hoang on 05-03-2023 Calcium [Mass/Vol] 9.6 mg/dL 8.5-10.1 [facility] Serum or plasma creatinine m easurement (mass/volume)Ordered By: Kenzie Hoang on 05-03-2023 Creatinine [Mass/Vol] 0.70 mg/dL 0.55-1.02 [facility] Comment on above: The validity of the calculated GFR & GFRAA in patients over 70 years has not been determined. Clinical correlation is essential. Serum or plasma thyroid stim ulating hormone (TSH) measurement (units/volume)Ordered By: Kenzie Hoang on 05-03-2023 TSH Qn 1.09 uIU/mL 0.358-3.74 [facility] Serum or plasma urea nitroge n measurement (mass/volume)Ordered By: Kenzie Hoang on 05-03-2023 Urea nitrogen [Mass/Vol] 11 mg/dL 7-18 [facility] Thin prep Papanicolaou smear with manual screeningOrdered By: Kenzie Hoang on 05-03-2023 Thin prep Papanicolaou smear with manual screening 4.0 g/dL 3.2-5.0 [facility] Thin prep Papanicolaou smear with manual screening 23 U/L 15-37 [facility] Thin prep Papanicolaou smear with manual screening 9 5-15 [facility] Thyroid Stim Hormone (TSH)on 05-03-2023 TSH 1.09 uIU/mL Normal 0.358-3.74 [facility] Comment on above: Order Comment: Order Date: 05/03/23 Order Info: [id number] - CMP Order Info: [id number] - LIPID Order Info: [id number] - TSH Performed By: #### L 501.9985, L500.4100, L501.9520, L500.4050, L100.0500 #### [facility] [address] [place], [address] Whole blood hemoglobin A1c/t otal hemoglobin ratio (mass fraction)Ordered By: Kenzie Hoang on 05-03-2023 HbA1c (Bld) [Mass fraction] 5.2 % 3.8-5.6 [facility] Comment on above: Normal < 5.7 % Predi abetic 5.7 - 6.4 % Diabetic >or= 6.5 % Please note range changes. Culture, Throaton 01-20-2023 Culture, Throat ORDER#: [id number] ORDERED BY: IVANNA LAW SOURCE: Throat Throat COLLECTED: 01/20/23 09:34 ANTIBIOTICS AT [facility].: RECEIVED : 01/20/23 20:54 Culture, Throat FINAL 01/23/23 11:22 Cult,Throat: Oral thao, negative for Group A Strep and other beta Cult,Throat: hemolytic streptococci Performed at [place] [id number] ([phone] [facility] Comment on above: Performed By: #### C XTHR #### [facility] [address] [place] [id number] Culture, Urineon 09-24-2022 Culture, Urine ORDER#: [id number] ORDERED BY: IVANNA LAW SOURCE: Urine Clean Catch COLLECTED: 09/24/22 18:41 ANTIBIOTICS AT [facility].: RECEIVED : 09/24/22 20:11 Culture, Urine FINAL 09/26/22 07:28 Cult,Urine: NO SIGNIFICANT GROWTH Performed at [place] [id number] ([phone] [facility] Comment on above: Performed By: #### C XURN #### [facility] [address] [place] [address] Absolute lymphocyte counton 02-01-2022 Lymphocytes Auto (Unsp spec) [#/Vol] 2.29 10*3/uL 0.83-4.51 [facility] Work Phone: Basophil percentageon 2021 Basophils/100 WBC (Bld) 0.5 % 0-1 [facility] Work Phone: Chloride [Moles/Vol] 105 mmol/L 98-107 [facility] Work Phone: Eosinophils/100 WBC (Bld) 0.7 % 0-5 [facility] Work Phone: Glucose [Mass/Vol] 89 mg/dL 74-106 [facility] Work Phone: Neutrophils (Bld) [#/Vol] 5.0 10*3/uL 2.0-7.7 [facility] Work Phone: Neutrophils/100 WBC (Bld) 62.5 % 47-70 [facility] Work Phone: Potassium [Moles/Vol] 3.8 mmol/L 3.5-5.1 [facility] Work Phone: Sodium [Moles/Vol] 137 mmol/L 136-145 [facility] Work Phone: WBC (Bld) [#/Vol] 8.1 10*3/uL 4.4-11.0 [facility] Work Phone: Basophil percentage 5-10 SEEN /hpf 0-5 [facility] Work Phone: Bilirubin Test strip Ql (U)o n 02-01-2022 Bilirubin Ql (U) Negative Negative [facility] Work Phone: Blood erythrocytes count (nu mber/volume)on 02-01-2022 RBC (Bld) [#/Vol] 4.93 10*6/uL 4.2-5.4 [facility] Work Phone: Blood hemoglobin measurement (mass/volume)on 02-01-2022 Hemoglobin (Bld) [Mass/Vol] 12.8 g/dL 12.0-15.0 [facility] Work Phone: Blood lymphocytes/100 leukoc yteson 02-01-2022 Lymphocytes/100 WBC (Bld) 28.4 % 19-41 [facility] Work Phone: Blood monocytes/100 leukocyt eson 02-01-2022 Monocytes/100 WBC (Bld) 7.5 % 0-10 [facility] Work Phone: Blood platelet mean volumeon 02-01-2022 Platelet mean volume (Bld) [Entitic vol] 9.5 fL 6.2-12.0 [facility] Work Phone: Determination of erythrocyte mean corpuscular volume (MCV)on 02-01-2022 MCV (RBC) [Entitic vol] 82.8 fL 81-99 [facility] Work Phone: Hematocrit Auto (Bld) [Volum e fraction]on 02-01-2022 Hematocrit (Bld) [Volume fraction] 40.8 % 37-47 [facility] Work Phone: Ketones Test strip Ql (U)on 02-01-2022 Ketones Ql (U) Negative Negative [facility] Work Phone: Laboratory - Chemistry and C hemistry - challengeon 02-01-2022 CO2 [Moles/Vol] 27.0 mmol/L 21.0-32.0 [facility] Work Phone: Urea nitrogen/Creatinine [Mass ratio] 16.8 mg/mg 10-20 [facility] Work Phone: HCG ( test) Ql (U) Negative [facility] Work Phone: Comment on above: Very dilute urine sp ecimens, as indicated by a low specificgravity, may not contain product support sales representative levels of hCG. If is still suspected, a first morning urinespecimen should be collected 48 hours later and tested. Laboratory - Hematology and Cell countson 02-01-2022 Erythrocyte distribution width (RBC) [Entitic vol] 43.1 fL 35.1-43.9 [facility] Work Phone: Erythrocyte distribution width (RBC) [Ratio] 14.4 % 11.6-14.6 [facility] Work Phone: Immature granulocytes/100 WBC (Bld) 0.400 % 0.0-0.9 [facility] Work Phone: Comment on above: IG% - Immature Granu locytes (promyelocytes, myelocytes and metamyelocytes) > 1% indicates that a LEFT SHIFT is Present. MCH (RBC) [Entitic mass] 26.0 pg 27.0-32.0 [facility] Work Phone: Nucleated RBC/100 WBC (Bld) [Ratio] 0 % 0-5 [facility] Work Phone: MCHC Auto (RBC) [Mass/Vol]on 02-01-2022 MCHC (RBC) [Mass/Vol] 31.4 g/dL 32-36 [facility] Work Phone: Mucus LM Ql (Urine sed)on Mucus Ql (Urine sed) 0 SEEN /hpf [facility] Work Phone: Nitrite Test strip Ql (U)on 02-01-2022 Nitrite Ql (U) Negative Negative [facility] Work Phone: No Panel Informationon 02-01 Estimated Creatinine Clearance Calc 94.05 ml/min [facility] Work Phone: Estimated GFR (MDRD) Amer 136 mL/min >60 [facility] Work Phone: Comment on above: GFR Calc Estimated GFR (MDRD) Non-Af Amer 112 mL/min >60 [facility] Work Phone: Comment on above: Non- GFR Calc Platelets bldon 02-01-2022 Platelets (Bld) [#/Vol] 289 10*3/uL 150-450 [facility] Work Phone: Protein Test strip Ql (U)on 02-01-2022 Protein Ql (U) 15 mg/dl Negative [facility] Work Phone: Serum or plasma calcium chris urement (mass/volume)on 02-01-2022 Calcium [Mass/Vol] 9.4 mg/dL 8.5-10.1 [facility] Work Phone: Serum or plasma creatinine m easurement (mass/volume)on 02-01-2022 Creatinine [Mass/Vol] 0.66 mg/dL 0.55-1.02 [facility] Work Phone: Comment on above: The validity of the calculated GFR & GFRAA in patients over 70 years has not been determined. Clinical correlation is essential. Serum or plasma urea nitroge n measurement (mass/volume)on 02-01-2022 Urea nitrogen [Mass/Vol] 11 mg/dL 7-18 [facility] Work Phone: Squamous epithelial cells de tection in urine sediment by light microscopyon 02-01-2022 Epithelial cells.squamous LM Ql (Urine sed) 10-25 SEEN /hpf 5-10 [facility] Work Phone: Thin prep Papanicolaou smear with manual screeningon 02-01-2022 Thin prep Papanicolaou smear with manual screening 5 5-15 [facility] Work Phone: Urine blood detectionon 01-14 RBC Ql (U) Negative Negative [facility] Work Phone: RBC Ql (U) 0 SEEN /hpf 0-5 [facility] Work Phone: Urine clarityon 02-01-2022 Clarity (U) Cloudy Clear [facility] Work Phone: Urine color determinationon 02-01-2022 Color (U) Yellow Yellow [facility] Work Phone: Urine glucose detectionon Glucose Ql (U) Normal mg/dl Normal [facility] Work Phone: Urine leukocyte esterase det ection by dipstickon 02-01-2022 Leukocyte esterase Test strip Ql (U) 500 /ul Negative [facility] Work Phone: Urine pHon 02-01-2022 pH (U) 6.0 [pH] 5.0 - 8.0 [facility] Work Phone: Urine sediment bacteria coun t by microscopy (number/high power field)on 02-01-2022 Bacteria LM.HPF (Urine sed) [#/Area] 4 /[HPF] None Seen [facility] Work Phone: Urine specific gravity measu rementon 02-01-2022 Specific gravity (U) [Rel density] 1.020 1.002-1.030 [facility] Work Phone: Urobilinogen Auto test strip Ql (U)on 02-01-2022 Urobilinogen Ql (U) Normal mg/dl Normal [facility] Work Phone: CBC With Platelet and Differ entialon 05-21-2021 Abs Imm Granulocytes 0.0 K/uL Normal [facility] Comment on above: Performed By: #### U DONALD #### [facility] [address] [facility] [address] Basophils (Bld) [#/Vol] 0.0 10*3/uL Normal 0.0-0.1 [facility] Comment on above: Performed By: #### U DONALD #### [facility] [address] [place] [address] Basophils/100 WBC (Bld) 0.3 % Normal 0.1-1.2 [facility] Comment on above: Performed By: #### U DONALD #### [facility] [address] [place] [address] Eosinophils (Bld) [#/Vol] 0.1 10*3/uL Normal 0.0-0.4 [facility] Comment on above: Performed By: #### U DONALD #### [facility] [address] [place] [address] Eosinophils/100 WBC (Bld) 1.1 % Normal 0.7-5.8 [facility] Comment on above: Performed By: #### U DONALD #### [facility] [address] [place] [address] Erythrocyte distribution width (RBC) [Ratio] 14.4 % Normal 11.7-14.4 [facility] Comment on above: Performed By: #### U DONALD #### [facility] [address] [place] [address] Hematocrit (Bld) [Volume fraction] 38.6 % Normal 37.0-47.0 [facility] Comment on above: Performed By: #### U DONALD #### [facility] [address] [place] [address] Hemoglobin (Bld) [Mass/Vol] 12.6 g/dL Normal 11.2-15.7 [facility] Comment on above: Performed By: #### U DONALD #### [facility] [address] [place] [address] Imm Granulocytes 0.2 % Normal [facility] Comment on above: Performed By: #### U DONALD #### [facility] [address] [place] [address] Lymphocytes (Bld) [#/Vol] 1.7 10*3/uL Normal 1.2-3.7 [facility] Comment on above: Performed By: #### U DONALD #### [facility] [address] [place] [address] Lymphocytes/100 WBC (Bld) 28.4 % Normal [facility] Comment on above: Performed By: #### U DONALD #### [facility] [address] [place] [address] MCH (RBC) [Entitic mass] 26.3 pg Normal 25.6-32.2 [facility] Comment on above: Performed By: #### U DONALD #### [facility] [address] [place] [address] MCHC 32.6 % Normal 32.2-35.5 [facility] Comment on above: Performed By: #### U DONALD #### [facility] [address] [place] [address] MCV (RBC) [Entitic vol] 80.4 fL Normal 79.4-94.8 [facility] Comment on above: Performed By: #### U DONALD #### [facility] [address] [place] [address] Monocytes (Bld) [#/Vol] 0.7 10*3/uL Normal 0.2-0.9 [facility] Comment on above: Performed By: #### U DONALD #### [facility] [address] [place] [address] Monocytes/100 WBC (Bld) 11.7 % Normal 4.7-12.5 [facility] Comment on above: Performed By: #### U DONALD #### [facility] [address] [place] [address] Neutrophils (Bld) [#/Vol] 3.6 10*3/uL Normal 1.6-6.1 [facility] Comment on above: Performed By: #### U DONALD #### [facility] [address] [place] [address] Neutrophils/100 WBC (Bld) 58.3 % Normal 34.0-71.1 [facility] Comment on above: Performed By: #### U DONALD #### [facility] [address] [place] [address] Platelets (Bld) [#/Vol] 225 10*3/uL Normal 182-369 [facility] Comment on above: Performed By: #### U DONALD #### [facility] [address] [place] [address] RBC (Bld) [#/Vol] 4.80 10*6/uL Normal 3.93-5.22 [facility] Comment on above: Performed By: #### U DONALD #### [facility] [address] [place] [address] WBC (Bld) [#/Vol] 6.1 10*3/uL Normal 4.0-10.0 [facility] Comment on above: Performed By: #### U DONALD #### [facility] [address] [place] [address] Comprehensive Metabolic Pane lina 05-21-2021 Albumin [Mass/Vol] 4.6 g/dL Normal 3.5-4.6 [facility] Comment on above: Performed By: #### U DONALD #### [facility] [address] [place] [address] ALP [Catalytic activity/Vol] 82 U/L Normal 40-130 [facility] Comment on above: Performed By: #### U DONALD #### [facility] [address] [place] [address] ALT [Catalytic activity/Vol] 15 U/L Normal 0-33 [facility] Comment on above: Performed By: #### U DONALD #### [facility] [address] [place] [address] Anion gap [Moles/Vol] 12 mmol/L Normal 9-15 [facility] Comment on above: Performed By: #### U DONALD #### [facility] [address] [place] [address] AST [Catalytic activity/Vol] 15 U/L Normal 0-35 [facility] Comment on above: Performed By: #### U DONALD #### [facility] [address] [place] [address] Bilirubin [Mass/Vol] mg/dL Normal 0.2-0.7 [facility] Comment on above: Performed By: #### U DONALD #### [facility] [address] [place] [address] Calcium [Mass/Vol] 9.1 mg/dL Normal 8.5-9.9 [facility] Comment on above: Performed By: #### U DONALD #### [facility] [address] [place] [address] Chloride [Moles/Vol] 106 mmol/L Normal 95-107 [facility] Comment on above: Performed By: #### U DONALD #### [facility] [address] [place] [address] CO2 [Moles/Vol] 21 mmol/L Normal 20-31 [facility] Comment on above: Performed By: #### U DONALD #### [facility] [address] [place] [address] Creatinine [Mass/Vol] 0.48 mg/dL Low 0.50-0.90 [facility] Comment on above: Performed By: #### U DONALD #### [facility] [address] [place] [address] GFR >60.0 Normal >60 [facility] Comment on above: Result Comment: >60 mL/min/1.73m2 EGFR, calc. for ages 18 and older using the MDRD formula (not corrected for weight), is valid for stable renal function. Performed By: #### U DONALD #### [facility] [address] [place] [address] GFR/1.73 sq M.predicted among blacks MDRD (S/P/Bld) [Vol rate/Area] mL/min/{1.73_m2} Normal >60 [facility] Comment on above: Result Comment: >60 mL/min/1.73m2 EGFR, calc. for ages 18 and older using the MDRD formula (not corrected for weight), is valid for stable renal function. Performed By: #### U DONALD #### [facility] [address] [place] [address] Globulin (S) [Mass/Vol] 2.9 g/dL Normal 2.3-3.5 [facility] Comment on above: Performed By: #### U DONALD #### [facility] [address] [place] [address] Glucose [Mass/Vol] 97 mg/dL Normal 70-99 [facility] Comment on above: Performed By: #### U DONALD #### [facility] [address] [place] [address] Potassium [Moles/Vol] 4.2 mmol/L Normal 3.4-4.9 [facility] Comment on above: Performed By: #### U DONALD #### [facility] [address] [facility] [address] Protein [Mass/Vol] 7.5 g/dL Normal 6.3-8.0 [facility] Comment on above: Performed By: #### U DONALD #### [facility] [address] [facility] [place] [address] Sodium [Moles/Vol] 139 mmol/L Normal 135-144 [facility] Comment on above: Performed By: #### U DONALD #### [facility] [address] [facility] [address] Urea nitrogen [Mass/Vol] 15 mg/dL Normal 6-20 [facility] Comment on above: Performed By: #### U DONALD #### [facility] [address] [facility] [address] D-Dimer Quanton 05-21-2021 D-Dimer Quant <0.27 Normal 0.00-0.50 [facility] Comment on above: Result Comment: VTE (DVT or PE) cut-off = 0.50 mg/L FEU Performed By: #### A MY #### [facility] [address] [place] [address] Magnesiumon 05-21-2021 Magnesium [Mass/Vol] 1.9 mg/dL Normal 1.7-2.4 [facility] Comment on above: Performed By: #### A MY #### [facility] [address] [place] [address] Troponinon 05-21-2021 Troponin I.cardiac [Mass/Vol] ng/mL Normal 0.000-0.01 [facility] Comment on above: Result Comment: Meth odology by Troponin T. Performed By: #### T ROP #### [facility] [address] [place] [address] UR Drug Screen Rapidon 05-21 Drug Screen Comment see below Normal [facility] Comment on above: Result Comment: This method is a screening test to detect only these drug classes as part of a medical workup. Confirmatory testing by another method should be ordered if clinically indicated. Performed By: #### U DSNC #### [facility] [address] [place] [address] UR Amphetamines Rapid Screen Negative Normal Negative < [facility] Comment on above: Result Comment: Effe ctive: 08/29/17 Methodology and/or Reference Range-Cutoff has changed. Performed By: #### U DSNC #### [facility] [address] [place] [address] UR Barbiturates Rapid Screen Negative Normal Negative < [facility] Comment on above: Result Comment: Effe ctive: 08/29/17 Methodology and/or Reference Range-Cutoff has changed. Performed By: #### U DSNC #### [facility] [address] [place] [address] UR Benzo Rapid Screen Negative Normal Negative < [facility] Comment on above: Result Comment: Effe ctive: 08/29/17 Methodology and/or Reference Range-Cutoff has changed. Performed By: #### U DSNC #### [facility] [address] [place] [address] UR Cannabinoids Rapid Screen Negative Normal Negative < [facility] Comment on above: Performed By: #### U DSNC #### [facility] [address] [place] [address] UR Cocaine Rapid Screen Negative Normal Negative < [facility] Comment on above: Result Comment: Effe ctive: 08/29/17 Methodology and/or Reference Range-Cutoff has changed. Performed By: #### U DSNC #### [facility] [address] [place] [address] UR Opiates Rapid Screen Negative Normal Negative < [facility] Comment on above: Result Comment: Effe ctive: 08/29/17 Methodology and/or Reference Range-Cutoff has changed. Performed By: #### U DSNC #### [facility] [address] [place] [address] UR PCP Rapid Screen Negative Normal Negative < [facility] Comment on above: Performed By: #### U DSNC #### [facility] [address] [place] [address] UR HCG Qualitativeon 022 Beta HCG ( test) Ql (U) Negative Normal Detects HC [facility] Comment on above: Performed By: #### U HCG #### [facility] [address] [place] [address] Urinalysis, reflex to cultur dalton 05-21-2021 Urine Reflexed to Culture Not Indicated Normal [facility] Comment on above: Performed By: #### U AR #### [facility] [address] [place] [address] Bilirubin Ql (U) Negative Normal Negative [facility] Comment on above: Performed By: #### U AR #### [facility] [address] [place] [address] Clarity (U) Clear Normal Clear [facility] Comment on above: Performed By: #### U AR #### [facility] [address] [place] [address] Color (U) Yellow Normal Straw/Petroleum [facility] Comment on above: Performed By: #### U AR #### [facility] [address] [place] [address] Glucose Ql (U) Negative Normal Negative [facility] Comment on above: Performed By: #### U AR #### [facility] [address] [place] [address] Hemoglobin Ql (U) Moderate Normal Negative [facility] Comment on above: Performed By: #### U AR #### [facility] [address] [place] [address] Ketones Ql (U) Negative Normal Negative [facility] Comment on above: Performed By: #### U AR #### [facility] [address] [place] [address] Leukocyte esterase Test strip Ql (U) Small Normal Negative [facility] Comment on above: Performed By: #### U AR #### [facility] [address] [place] [address] Nitrite Ql (U) Negative Normal Negative [facility] Comment on above: Performed By: #### U AR #### [facility] [address] [place] [address] pH (U) 7.0 [pH] Normal 5.0-9.0 [facility] Comment on above: Performed By: #### U AR #### [facility] [address] [place] [address] Protein Ql (U) Negative Normal Negative [facility] Comment on above: Performed By: #### U AR #### [facility] [address] [place] [address] Specific gravity (U) [Rel density] 1.020 Normal 1.005-1.03 [facility] Comment on above: Performed By: #### U AR #### [facility] [address] [place] [address] Urobilinogen Qn (U) 0.2 {Erich'U}/dL Normal < 2.0 [facility] Comment on above: Performed By: #### U AR #### [facility] [address] [place] [address] Urine Microscopicon 05-22-19 22 Epithelial cells LM Ql (Urine sed) 3-5 Normal [facility] Comment on above: Performed By: #### A MY #### [facility] [address] [place] [address] Urine Amorphous 1+ Normal [facility] Comment on above: Performed By: #### A MY #### [facility] [address] [place] [address] Urine Bacteria RARE Abnormal Negative [facility] Comment on above: Performed By: #### A MY #### [facility] [address] [place] [address] Urine RBC 3-5 Abnormal 0-2 [facility] Comment on above: Performed By: #### A MY #### [facility] [address] [place] [address] Urine WBC 3-5 Normal 0-5 [facility] Comment on above: Performed By: #### A MY #### [facility] [address] [place] [address] XR CHEST PORTABLEon 05-22-19 XR CHEST PORTABLE EXAMINATION: XR CHEST PORTABLE CLINICAL HISTORY: CHEST PAIN COMPARISONS: CT CHEST JULY 19, 2012, CHEST RADIOGRAPH, JULY 12, 2012 FINDINGS: Osseous structures are intact. Cardiopericardial silhouette is normal. Pulmonary vasculature is normal. Lungs are clear. IMPRESSION: NO ACUTE CARDIOPULMONARY DISEASE. Interpreted by: Frankie Booker MD Signed by: Frankie Booker MD 05/21/21 Final result Normal [facility] Amylaseon 04-01-2021 Amylase [Catalytic activity/Vol] 41 U/L Normal 22-93 [facility] Comment on above: Performed By: #### A MY #### [facility] [address] [place] [address] Amylase [Catalytic activity/Vol] 41 U/L 22 - 93 U/L [facility] CBC With Platelet and Differ entialon 04-01-2021 Abs Imm Granulocytes 0.0 K/uL Normal [facility] Comment on above: Performed By: #### A MY #### [facility] [address] [place] [address] Basophils (Bld) [#/Vol] 0.0 10*3/uL Normal 0.0-0.1 [facility] Comment on above: Performed By: #### A MY #### [facility] [address] [place] [address] Basophils/100 WBC (Bld) 0.4 % Normal 0.1-1.2 [facility] Comment on above: Performed By: #### A MY #### [facility] [address] [place] [address] Eosinophils (Bld) [#/Vol] 0.1 10*3/uL Normal 0.0-0.4 [facility] Comment on above: Performed By: #### A MY #### [facility] [address] [place] [address] Eosinophils/100 WBC (Bld) 1.1 % Normal 0.7-5.8 [facility] Comment on above: Performed By: #### A MY #### [facility] [address] [place] [address] Erythrocyte distribution width (RBC) [Ratio] 14.4 % Normal 11.7-14.4 [facility] Comment on above: Performed By: #### A MY #### [facility] [address] [place] [address] Hematocrit (Bld) [Volume fraction] 40.9 % Normal 37.0-47.0 [facility] Comment on above: Performed By: #### A MY #### [facility] [address] [place] [address] Hemoglobin (Bld) [Mass/Vol] 13.4 g/dL Normal 11.2-15.7 [facility] Comment on above: Performed By: #### A MY #### [facility] [address] [place] [address] Imm Granulocytes 0.2 % Normal [facility] Comment on above: Performed By: #### A MY #### [facility] [address] [place] [address] Lymphocytes (Bld) [#/Vol] 1.9 10*3/uL Normal 1.2-3.7 [facility] Comment on above: Performed By: #### A MY #### [facility] [address] [place] [address] Lymphocytes/100 WBC (Bld) 33.5 % Normal [facility] Comment on above: Performed By: #### A MY #### [facility] [address] [place] [address] MCH (RBC) [Entitic mass] 26.9 pg Normal 25.6-32.2 [facility] Comment on above: Performed By: #### A MY #### [facility] [address] [place] [address] MCHC 32.8 % Normal 32.2-35.5 [facility] Comment on above: Performed By: #### A MY #### [facility] [address] [place] [address] MCV (RBC) [Entitic vol] 82.0 fL Normal 79.4-94.8 [facility] Comment on above: Performed By: #### A MY #### [facility] [address] [place] [address] Monocytes (Bld) [#/Vol] 0.5 10*3/uL Normal 0.2-0.9 [facility] Comment on above: Performed By: #### A MY #### [facility] [address] [place] [address] Monocytes/100 WBC (Bld) 9.3 % Normal 4.7-12.5 [facility] Comment on above: Performed By: #### A MY #### [facility] [address] [place] [address] Neutrophils (Bld) [#/Vol] 3.1 10*3/uL Normal 1.6-6.1 [facility] Comment on above: Performed By: #### A MY #### [facility] [address] [place] [address] Neutrophils/100 WBC (Bld) 55.5 % Normal 34.0-71.1 [facility] Comment on above: Performed By: #### A MY #### [facility] [address] [place] [address] Platelets (Bld) [#/Vol] 296 10*3/uL Normal 182-369 [facility] Comment on above: Performed By: #### A MY #### [facility] [address] [place] [address] RBC (Bld) [#/Vol] 4.99 10*6/uL Normal 3.93-5.22 [facility] Comment on above: Performed By: #### A MY #### [facility] [address] [place] [address] WBC (Bld) [#/Vol] 5.6 10*3/uL Normal 4.0-10.0 [facility] Comment on above: Performed By: #### A MY #### [facility] [address] [place] [address] Basophils (Bld) [#/Vol] 0.0 10*3/uL Normal 0.0-0.2 [facility] Comment on above: Performed By: #### C BCWD #### [facility] [address] [place] [address] Basophils/100 WBC (Bld) 0.3 % Normal [facility] Comment on above: Performed By: #### C BCWD #### [facility] [address] [place] [address] Eosinophils (Bld) [#/Vol] 0.0 10*3/uL Normal 0.0-0.7 [facility] Comment on above: Performed By: #### C BCWD #### [facility] [address] [place] [address] Eosinophils/100 WBC (Bld) 0.8 % Normal [facility] Comment on above: Performed By: #### C BCWD #### [facility] [address] [place] [address] Erythrocyte distribution width (RBC) [Ratio] 15.8 % Critically high 11.5-14.5 [facility] Comment on above: Performed By: #### C BCWD #### [facility] [address] [place] [address] Hematocrit (Bld) [Volume fraction] 38.1 % Normal 37.0-47.0 [facility] Comment on above: Performed By: #### C BCWD #### [facility] [address] [place] [address] Hemoglobin (Bld) [Mass/Vol] 12.4 g/dL Normal 12.0-16.0 [facility] Comment on above: Performed By: #### C BCWD #### [facility] [address] [place] [address] Lymphocytes (Bld) [#/Vol] 1.2 10*3/uL Normal 1.0-4.8 [facility] Comment on above: Performed By: #### C BCWD #### [facility] [address] [place] [address] Lymphocytes/100 WBC (Bld) 23.5 % Normal [facility] Comment on above: Performed By: #### C BCWD #### [facility] [address] [place] [address] MCH (RBC) [Entitic mass] 26.6 pg Low 27.0-31.3 [facility] Comment on above: Performed By: #### C BCWD #### [facility] [address] [place] [address] MCHC 32.7 % Low 33.0-37.0 [facility] Comment on above: Performed By: #### C BCWD #### [facility] [address] [place] [address] MCV (RBC) [Entitic vol] 81.3 fL Low 82.0-100.0 [facility] Comment on above: Performed By: #### C BCWD #### [facility] [address] [place] [address] Monocytes (Bld) [#/Vol] 0.4 10*3/uL Normal 0.2-0.8 [facility] Comment on above: Performed By: #### C BCWD #### [facility] [address] [place] [address] Monocytes/100 WBC (Bld) 8.0 % Normal [facility] Comment on above: Performed By: #### C BCWD #### [facility] [address] [place] [address] Neutrophils (Bld) [#/Vol] 3.4 10*3/uL Normal 1.4-6.5 [facility] Comment on above: Performed By: #### C BCWD #### [facility] [address] [place] [address] Neutrophils/100 WBC (Bld) 67.4 % Normal [facility] Comment on above: Performed By: #### C BCWD #### [facility] [address] [place] [address] Platelets (Bld) [#/Vol] 242 10*3/uL Normal 130-400 [facility] Comment on above: Performed By: #### C BCWD #### [facility] [address] [place] [address] RBC (Bld) [#/Vol] 4.68 10*6/uL Normal 4.20-5.40 [facility] Comment on above: Performed By: #### C BCWD #### [facility] [address] [place] [address] WBC (Bld) [#/Vol] 5.1 10*3/uL Normal 4.8-10.8 [facility] Comment on above: Performed By: #### C BCWD #### [facility] [address] [place] [address] CBC with Auto Differentialon 04-01-2021 Basophils (Bld) [#/Vol] 0.0 10*3/uL 0.0 - 0.1 K/uL [place] Basophils/100 WBC (Bld) 0.4 % 0.1 - 1.2 % [place] Eosinophils (Bld) [#/Vol] 0.1 10*3/uL 0.0 - 0.4 K/uL [place] Eosinophils/100 WBC (Bld) 1.1 % 0.7 - 5.8 % [place] Hematocrit (Bld) [Volume fraction] 40.9 % 37.0 - 47.0 % [place] Hemoglobin.gastrointe stinal spec 1 Ql (Stl) 13.4 g/dL 11.2 - 15.7 g/dL [place] Immature granulocytes (Bld) [#/Vol] 0.0 10*3/uL [facility] Immature granulocytes/100 WBC (Bld) 0.2 % [facility] Lymphocytes (Bld) [#/Vol] 1.9 10*3/uL 1.2 - 3.7 K/uL [facility] Lymphocytes/100 WBC (Bld) 33.5 % [facility] MCH (RBC) [Entitic mass] 26.9 pg 25.6 - 32.2 pg [facility] MCHC (RBC) [Mass/Vol] 32.8 % 32.2 - 35.5 % [facility] MCV (RBC) [Entitic vol] 82.0 fL 79.4 - 94.8 fL [facility] Monocytes (Bld) [#/Vol] 0.5 10*3/uL 0.2 - 0.9 K/uL [facility] Monocytes/100 WBC (Bld) 9.3 % 4.7 - 12.5 % [facility] Neutrophils Absolute 3.1 K/uL 1.6 - 6.1 K/uL [facility] Neutrophils/100 WBC (Bld) 55.5 % 34.0 - 71.1 % [facility] Platelet distribution width (Bld) [Ratio] 14.4 % 11.7 - 14.4 % [facility] Platelets (Bld) [#/Vol] 296 10*3/uL 182 - 369 K/uL [facility] RBC (Bld) [#/Vol] 4.99 10*6/uL [facility] WBC (Bld) [#/Vol] 5.6 10*3/uL 4.0 - 10.0 K/uL [facility] CT ABDOMEN PELVIS W IV CONTR Selin 04-01-2021 CT ABDOMEN PELVIS W IV CONTRAST CT of the Abdomen and Pelvis with intravenous contrast medium History: Abdominal pain, nausea, vomiting, diarrhea Technical Factors: CT imaging of the abdomen and pelvis were obtained and formatted as 5 mm contiguous axial images from the domes of the diaphragm to the symphysis pubis. Sagittal and coronal reconstructions were also obtained. Oral contrast medium: None. Intravenous contrast medium: Isovue-370, 100 mL. Comparison: None. Findings: Lungs: Lung bases are clear. Liver: Normal in size, shape, and attenuation. Bile Ducts: Normal in caliber. Gallbladder: No stones or wall thickening. Pancreas: Normal without masses, cysts, ductal dilatation or calcification. Spleen: Normal in size without masses or calcifications. No splenules. Kidneys: Normal in size and enhancement. No hydronephrosis, masses, or stones. Adrenals: Normal. Small bowel: Normal in caliber. Appendix: Normal. Colon: Normal in caliber. Peritoneum: No ascites, free air, or fluid collections. Vessels: Aorta normal in course and caliber. Portal vein, splenic vein, superior mesenteric vein are patent. Lymph nodes: Retroperitoneal: No enlarged retroperitoneal lymph nodes. Mesenteric: No enlarged mesenteric lymph nodes. Pelvic: No enlarged pelvic lymph nodes. Ureters: Normal in course and caliber. No calcifications. Bladder: No wall thickening. Reproductive organs: Intrauterine device identified centrally within endometrial canal. Abdominal Wall: 1.5 cm fat-containing periumbilical anterior abdominal wall defect. Bones: No bone lesions. No degenerative changes. No post operative changes. IMPRESSION: No acute findings. All CT scans at this facility use dose modulation, iterative reconstruction, and/or weight based dosing when appropriate to reduce radiation dose to as low as reasonably achievable. Interpreted by: Frankie Booker MD Signed by: Frankie Booker MD 04/01/21 Final result Normal [facility] CT ABDOMEN PELVIS W IV CONTR AST Additional Contrast? Noneon 04-01-2021 No acute findings. All CT scans at this facility use dose modulation, iterative reconstruction, and/or weight based dosing when appropriate to reduce radiation dose to as low as reasonably achievable. [facility] CT of the Abdomen and Pelvis with intravenous contrast medium History: Abdominal pain, nausea, vomiting, diarrhea Technical Factors: CT imaging of the abdomen and pelvis were obtained and formatted as 5 mm contiguous axial images from the domes of the diaphragm to the symphysis pubis. Sagittal and coronal reconstructions were also obtained. Oral contrast medium: None. Intravenous contrast medium: Isovue-370, 100 mL. Comparison: None. Findings: Lungs: Lung bases are clear. Liver: Normal in size, shape, and attenuation. Bile Ducts: Normal in caliber. Gallbladder: No stones or wall thickening. Pancreas: Normal without masses, cysts, ductal dilatation or calcification. Spleen: Normal in size without masses or calcifications. No splenules. Kidneys: Normal in size and enhancement. No hydronephrosis, masses, or stones. Adrenals: Normal. Small bowel: Normal in caliber. Appendix: Normal. Colon: Normal in caliber. Peritoneum: No ascites, free air, or fluid collections. Vessels: Aorta normal in course and caliber. Portal vein, splenic vein, superior mesenteric vein are patent. Lymph nodes: Retroperitoneal: No enlarged retroperitoneal lymph nodes. Mesenteric: No enlarged mesenteric lymph nodes. Pelvic: No enlarged pelvic lymph nodes. Ureters: Normal in course and caliber. No calcifications. Bladder: No wall thickening. Reproductive organs: Intrauterine device identified centrally within endometrial canal. Abdominal Wall: 1.5 cm fat-containing periumbilical anterior abdominal wall defect. Bones: No bone lesions. No degenerative changes. No post operative changes. [facility] SignerFrankie MD - 04/01/2021 CT of the Abdomen and Pelvis with intravenous contrast medium History: Abdominal pain, nausea, vomiting, diarrhea Technical Factors: CT imaging of the abdomen and pelvis were obtained and formatted as 5 mm contiguous axial images from the domes of the diaphragm to the symphysis pubis. Sagittal and coronal reconstructions were also obtained. Oral contrast medium: None. Intravenous contrast medium: Isovue-370, 100 mL. Comparison: None. Findings: Lungs: Lung bases are clear. Liver: Normal in size, shape, and attenuation. Bile Ducts: Normal in caliber. Gallbladder: No stones or wall thickening. Pancreas: Normal without masses, cysts, ductal dilatation or calcification. Spleen: Normal in size without masses or calcifications. No splenules. Kidneys: Normal in size and enhancement. No hydronephrosis, masses, or stones. Adrenals: Normal. Small bowel: Normal in caliber. Appendix: Normal. Colon: Normal in caliber. Peritoneum: No ascites, free air, or fluid collections. Vessels: Aorta normal in course and caliber. Portal vein, splenic vein, superior mesenteric vein are patent. Lymph nodes: Retroperitoneal: No enlarged retroperitoneal lymph nodes. Mesenteric: No enlarged mesenteric lymph nodes. Pelvic: No enlarged pelvic lymph nodes. Ureters: Normal in course and caliber. No calcifications. Bladder: No wall thickening. Reproductive organs: Intrauterine device identified centrally within endometrial canal. Abdominal Wall: 1.5 cm fat-containing periumbilical anterior abdominal wall defect. Bones: No bone lesions. No degenerative changes. No post operative changes. IMPRESSION: No acute findings. All CT scans at this facility use dose modulation, iterative reconstruction, and/or weight based dosing when appropriate to reduce radiation dose to as low as reasonably achievable. [email or web address] Phone: Radiology Study observation (narrative) [email or web address] Phone: CT ABDOMEN PELVIS W IV CONTR AST Additional Contrast? NoneOrdered By: Frankie Booker on 04-01-2021 [facility] Phone: Comprehensive Metabolic Pane lina 04-01-2021 Albumin [Mass/Vol] 4.6 g/dL Normal 3.5-4.6 [facility] Comment on above: Performed By: #### A MY #### [facility] [address] [place] [address] ALP [Catalytic activity/Vol] 94 U/L Normal 40-130 [facility] Comment on above: Performed By: #### A MY #### [facility] [address] [place] [address] ALT [Catalytic activity/Vol] 25 U/L Normal 0-33 [facility] Comment on above: Performed By: #### A MY #### [facility] [address] [place] [address] Anion gap [Moles/Vol] 13 mmol/L Normal 9-15 [facility] Comment on above: Performed By: #### A MY #### [facility] [address] [place] [address] AST [Catalytic activity/Vol] 23 U/L Normal 0-35 [facility] Comment on above: Performed By: #### A MY #### [facility] [address] [place] [address] Bilirubin [Mass/Vol] 0.4 mg/dL Normal 0.2-0.7 [facility] Comment on above: Performed By: #### A MY #### [facility] [address] [place] [address] Calcium [Mass/Vol] 9.1 mg/dL Normal 8.5-9.9 [facility] Comment on above: Performed By: #### A MY #### [facility] [address] [place] [address] Chloride [Moles/Vol] 102 mmol/L Normal 95-107 [facility] Comment on above: Performed By: #### A MY #### [facility] [address] [place] [address] CO2 [Moles/Vol] 24 mmol/L Normal 20-31 [facility] Comment on above: Performed By: #### A MY #### [facility] [address] [place] [address] Creatinine [Mass/Vol] 0.59 mg/dL Normal 0.50-0.90 [facility] Comment on above: Performed By: #### A MY #### [facility] [address] [place] [address] GFR >60.0 Normal >60 [facility] Comment on above: Result Comment: >60 mL/min/1.73m2 EGFR, calc. for ages 18 and older using the MDRD formula (not corrected for weight), is valid for stable renal function. Performed By: #### A MY #### [facility] [address] [place] [address] GFR/1.73 sq M.predicted among blacks MDRD (S/P/Bld) [Vol rate/Area] mL/min/{1.73_m2} Normal >60 [facility] Comment on above: Result Comment: >60 mL/min/1.73m2 EGFR, calc. for ages 18 and older using the MDRD formula (not corrected for weight), is valid for stable renal function. Performed By: #### A MY #### [facility] [address] [place] [address] Globulin (S) [Mass/Vol] 3.1 g/dL Normal 2.3-3.5 [facility] Comment on above: Performed By: #### A MY #### [facility] [address] [place] [address] Glucose [Mass/Vol] 90 mg/dL Normal 70-99 [facility] Comment on above: Performed By: #### A MY #### [facility] [address] [place] [address] Potassium [Moles/Vol] 3.6 mmol/L Normal 3.4-4.9 [facility] Comment on above: Performed By: #### A MY #### [facility] [address] [place] [address] Protein [Mass/Vol] 7.7 g/dL Normal 6.3-8.0 [facility] Comment on above: Performed By: #### A MY #### [facility] [address] [place] [address] Sodium [Moles/Vol] 139 mmol/L Normal 135-144 [facility] Comment on above: Performed By: #### A MY #### [facility] [address] [place] [address] Urea nitrogen [Mass/Vol] 10 mg/dL Normal 6-20 [facility] Comment on above: Performed By: #### A MY #### [facility] [address] [place] [address] Albumin [Mass/Vol] 4.6 g/dL 3.5 - 4.6 g/dL [facility] ALP (Bld) [Catalytic activity/Vol] 94 U/L 40 - 130 U/L [facility] ALT [Catalytic activity/Vol] 25 U/L 0 - 33 U/L [facility] Anion gap [Moles/Vol] 13 mmol/L [facility] AST [Catalytic activity/Vol] 23 U/L 0 - 35 U/L [facility] Bilirubin [Mass/Vol] 0.4 mg/dL 0.2 - 0 .7 mg/dL [facility] Calcium [Mass/Vol] 9.1 mg/dL 8.5 - 9.9 mg/dL [facility] Chloride [Moles/Vol] 102 mmol/L [facility] CO2 [Moles/Vol] 24 mmol/L [facility] Creatinine [Mass/Vol] 0.59 mg/dL 0.50 - 0.90 mg/dL [facility] Free PSA/Total PSA [Mass fraction] 7.7 g/dL 6.3 - 8.0 g/dL [facility] GFR >60.0 >60 [facility] Comment on above: >60 mL/min/1.73m2 EG FR, calc. for ages 18 and older using the MDRD formula (not corrected for weight), is valid for stable renal function. GFR Non- >60.0 >60 [facility] Comment on above: >60 mL/min/1.73m2 EG FR, calc. for ages 18 and older using the MDRD formula (not corrected for weight), is valid for stable renal function. Globulin (S) [Mass/Vol] 3.1 g/dL 2.3 - 3.5 g/dL [facility] Glucose [Mass/Vol] 90 mg/dL 70 - 99 mg/dL [facility] Potassium [Moles/Vol] 3.6 mmol/L [facility] Sodium [Moles/Vol] 139 mmol/L [facility] Urea nitrogen (BldV) [Mass/Vol] 10 mg/dL 6 - 20 mg/dL [facility] Albumin [Mass/Vol] 4.6 g/dL Normal 3.5-4.6 [facility] Comment on above: Performed By: #### C MP #### [facility] [address] [place] [address] ALP [Catalytic activity/Vol] 84 U/L Normal 40-130 [facility] Comment on above: Performed By: #### C MP #### [facility] [address] [place] [address] ALT [Catalytic activity/Vol] 26 U/L Normal 0-33 [facility] Comment on above: Performed By: #### C MP #### [facility] [address] [place] [address] Anion gap [Moles/Vol] 10 mmol/L Normal 9-15 [facility] Comment on above: Performed By: #### C MP #### [facility] [address] [place] [address] AST [Catalytic activity/Vol] 22 U/L Normal 0-35 [facility] Comment on above: Performed By: #### C MP #### [facility] [address] [place] [address] Bilirubin [Mass/Vol] 0.4 mg/dL Normal 0.2-0.7 [facility] Comment on above: Performed By: #### C MP #### [facility] [address] [place] [address] Calcium [Mass/Vol] 9.2 mg/dL Normal 8.5-9.9 [facility] Comment on above: Performed By: #### C MP #### [facility] [address] [place] [address] Chloride [Moles/Vol] 102 mmol/L Normal 95-107 [facility] Comment on above: Performed By: #### C MP #### [facility] [address] [place] [address] CO2 [Moles/Vol] 26 mmol/L Normal 20-31 [facility] Comment on above: Performed By: #### C MP #### [facility] [address] [place] [address] Creatinine [Mass/Vol] 0.56 mg/dL Normal 0.50-0.90 [facility] Comment on above: Performed By: #### C MP #### [facility] [address] [place] [address] GFR >60.0 Normal >60 [facility] Comment on above: Result Comment: >60 mL/min/1.73m2 EGFR, calc. for ages 18 and older using the MDRD formula (not corrected for weight), is valid for stable renal function. Performed By: #### C MP #### [facility] [address] [place] [address] GFR/1.73 sq M.predicted among blacks MDRD (S/P/Bld) [Vol rate/Area] mL/min/{1.73_m2} Normal >60 [facility] Comment on above: Result Comment: >60 mL/min/1.73m2 EGFR, calc. for ages 18 and older using the MDRD formula (not corrected for weight), is valid for stable renal function. Performed By: #### C MP #### [facility] [address] [place] [address] Globulin (S) [Mass/Vol] 2.9 g/dL Normal 2.3-3.5 [facility] Comment on above: Performed By: #### C MP #### [facility] [address] [place] [address] Glucose [Mass/Vol] 82 mg/dL Normal 70-99 [facility] Comment on above: Performed By: #### C MP #### [facility] [address] [place] [address] Potassium [Moles/Vol] 4.0 mmol/L Normal 3.4-4.9 [facility] Comment on above: Performed By: #### C MP #### [facility] [address] [place] [address] Protein [Mass/Vol] 7.5 g/dL Normal 6.3-8.0 [facility] Comment on above: Performed By: #### C MP #### [facility] [address] [place] [address] Sodium [Moles/Vol] 138 mmol/L Normal 135-144 [facility] Comment on above: Performed By: #### C MP #### [facility] [address] [place] [address] Urea nitrogen [Mass/Vol] 10 mg/dL Normal 6-20 [facility] Comment on above: Performed By: #### C MP #### [facility] [address] [place] [address] Culture, Urineon 04-01-2021 Culture, Urine ORDER#: [id number] ORDERED BY: SASHA CATHERINE SOURCE: Urine Clean Catch COLLECTED: 04/01/21 16:48 ANTIBIOTICS AT LUIS.: RECEIVED : 04/01/21 18:53 Culture, Urine FINAL 04/03/21 10:49 No growth 24 hours Normal [facility] Comment on above: Performed By: #### C JOSE #### [facility] [address] [place] [address] Lipaseon 04-01-2021 Lipase [Catalytic activity/Vol] 28 U/L Normal 12-95 [facility] Comment on above: Performed By: #### A MY #### [facility] [address] [place] [address] Lipase [Catalytic activity/Vol] 28 U/L 12 - 95 U/L [facility] Microscopic Urinalysison Amorphous, [facility]A [facility]+ [facility], [facility]A MODERATE Abnormal Negative /[facility] Epithelial Cells, UA 5-10 /HPF [facility] Mucus, UA Present None Seen /LPF [facility] th RBC, UA 0-2 [facility] WBC, UA 10-20 Abnormal [facility] No Panel Informationon 04-01 [facility] Interpretation and review of laboratory results Abnormal [facility] , Urineon 2 Beta HCG ( test) Ql (U) Negative Detects HCG level >20 MIU/mL [facility] UR HCG Qualitativeon 022 Beta HCG ( test) Ql (U) Negative Normal Detects HC [facility] Comment on above: Performed By: #### A MY #### [facility] [address] [place] [address] US GALLBLADDER RUQon 022 US GALLBLADDER RUQ LIMITED ABDOMINAL ULTRASOUND: INDICATION: 30-year-old female presenting with right upper quadrant pain. COMPARISON: None.. TECHNIQUE: Grayscale and color Doppler evaluation of the liver and gallbladder FINDINGS: Grayscale and color Doppler evaluation of the liver and bladder was performed. The liver demonstrates unremarkable echogenicity, no evidence of hepatic masses is seen, no evidence of intrahepatic biliary dilatation is seen. The gallbladder demonstrates no evidence of significant gallbladder wall thickening or nodularity, no evidence of gallbladder wall masses. No evidence of pericholecystic fluid collection is seen, unremarkable anechoic internal echogenicity with no evidence of gallstones. The common bile duct measures 0.4 cm. No evidence of free fluid in the abdomen. IMPRESSION: Unremarkable liver and gallbladder. Interpreted by: Vern Tyler MD Signed by: Vern Tyler MD 04/01/21 Final result Normal [facility] Unremarkable liver and gallbladder. [facility] LIMITED ABDOMINAL ULTRASOUND: INDICATION: 30-year-old female presenting with right upper quadrant pain. COMPARISON: None.. TECHNIQUE: Grayscale and color Doppler evaluation of the liver and gallbladder FINDINGS: Grayscale and color Doppler evaluation of the liver and bladder was performed. The liver demonstrates unremarkable echogenicity, no evidence of hepatic masses is seen, no evidence of intrahepatic biliary dilatation is seen. The gallbladder demonstrates no evidence of significant gallbladder wall thickening or nodularity, no evidence of gallbladder wall masses. No evidence of pericholecystic fluid collection is seen, unremarkable anechoic internal echogenicity with no evidence of gallstones. The common bile duct measures 0.4 cm. No evidence of free fluid in the abdomen. [facility] Vern Tyler MD - 04/01/2021 LIMITED ABDOMINAL ULTRASOUND: INDICATION: 30-year-old female presenting with right upper quadrant pain. COMPARISON: None.. TECHNIQUE: Grayscale and color Doppler evaluation of the liver and gallbladder FINDINGS: Grayscale and color Doppler evaluation of the liver and bladder was performed. The liver demonstrates unremarkable echogenicity, no evidence of hepatic masses is seen, no evidence of intrahepatic biliary dilatation is seen. The gallbladder demonstrates no evidence of significant gallbladder wall thickening or nodularity, no evidence of gallbladder wall masses. No evidence of pericholecystic fluid collection is seen, unremarkable anechoic internal echogenicity with no evidence of gallstones. The common bile duct measures 0.4 cm. No evidence of free fluid in the abdomen. IMPRESSION: Unremarkable liver and gallbladder. [employer] Phone: Radiology Study observation (narrative) [employer] Phone: GALLBLADDER RUQOrdered By : Vern Tyler on 04-01-2021 [employer] Phone: Urinalysis with Reflex to Cu ltureon 04-01-2021 Bilirubin Urine Negative Negative [facility] Blood, Urine Small Negative [facility], UA SLCLOUDY Clear [facility] Color, UA Yellow Straw/Yellow [facility] Glucose, Ur Negative Negative mg/dL [facility] Ketones Ql (U) Trace Negative mg/dL [facility] Leukocyte esterase Test strip Ql (U) Trace Negative [facility] Nitrite, Urine Negative Negative [facility] pH, UA 7.0 [facility] Protein (U) [Mass/Vol] 30 mg/dL Abnormal Negative [facility] Specific [place], UA 1.025 [facility] Urine Reflex to Culture Yes [facility] Urobilinogen, Urine 1.0 <2.0 E.U./dL [facility] Urinalysis, reflex to cultur dalton 04-01-2021 Urine Reflexed to Culture Yes Normal [facility] Comment on above: Performed By: #### U AR #### [facility] [address] [place] [address] Bilirubin Ql (U) Negative Normal Negative [facility] Comment on above: Performed By: #### U AR #### [facility] [address] [place] [address] Clarity (U) SLCLOUDY Normal Clear [facility] Comment on above: Performed By: #### U AR #### [facility] [address] [place] [address] Color (U) Yellow Normal Straw/Petroleum [facility] Comment on above: Performed By: #### U AR #### [facility] [address] [place] [address] Glucose Ql (U) Negative Normal Negative [facility] Comment on above: Performed By: #### U AR #### [facility] [address] [place] [address] Hemoglobin Ql (U) Small Normal Negative [facility] Comment on above: Performed By: #### U AR #### [facility] [address] [place] [address] Ketones Ql (U) Trace Normal Negative [facility] Comment on above: Performed By: #### U AR #### [facility] [address] [place] [address] Leukocyte esterase Test strip Ql (U) Trace Normal Negative [facility] Comment on above: Performed By: #### U AR #### [facility] [address] [place] [address] Nitrite Ql (U) Negative Normal Negative [facility] Comment on above: Performed By: #### U AR #### [facility] [address] [place] [address] pH (U) 7.0 [pH] Normal 5.0-9.0 [facility] Comment on above: Performed By: #### U AR #### [facility] [address] [place] [address] Protein Ql (U) 30 mg/dL Abnormal Negative [facility] Comment on above: Performed By: #### U AR #### [facility] [address] [place] [address] Specific gravity (U) [Rel density] 1.025 Normal 1.005-1.03 [facility] Comment on above: Performed By: ####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 to be printed on the label. Calcium carbonate is the least expensive form. It must be taken on a full stomach to be properly absorbed. Some patients may experience gas or constipation. Calcium phosphate and calcium citrate may be taken either with or without food and tend to have less side effects but are generally more expensive. Because of its ability to neutralize stomach acid, calcium carbonate is found in some [id number] antacid products, such as Tums and Rolaids . Depending on its strength, each chewable pill or softchew provides 200 to 400 mg of elemental calcium. The percentage of calcium absorbed depends on the total amount of elemental calcium consumed at one time. Absorption is highest in doses <500mg. So a woman who takes 1,000mg/day of calcium from supplements should split the dose and take 500mg at two separate times during the day. Too much calcium can cause kidney stones, constipation, difficulty absorbing other nutrients and calcium buildup in blood vessels. Women under 50 should not exceed 2500mg/day (2000mg/day for women over 50) of calcium from food and supplements. Excessive alcohol and caffeine intake can inhibit absorption of calcium. Calcium can reduce the absorption of some medications if taken at the same time of day (bisphosphonates, thyroid medication, Phenytoin and other seizure medications, some antibiotics and iron supplements). Vitamin D promotes calcium absorption in the gut and maintains adequate blood levels of calcium and phosphate for normal bone growth and bone remodeling. Vitamin D also helps regulate cell growth as well as nerve, muscle and immune system function. Vitamin D is produced in the skin as a result of ultraviolet sunlight rays and must be altered in the liver and kidney to become its active form. Recommended intake according to the National Institutes of Health is 600 International Units (IU) for girls and women ages 1-70 and 800 IU for women over 70. Very few foods in nature contain vitamin D. The flesh of fatty fish (such as salmon, tuna, and mackerel) and fish liver oils are among the best sources. Small amounts of vitamin D are found in beef liver, cheese, mushrooms and egg yolks. Most people meet at least some of their vitamin D needs through exposure to sunlight. Season, time of day, length of day, cloud cover, smog, skin melanin content, and sunscreen are among the factors that affect UV radiation exposure and vitamin D synthesis. Despite the importance of the sun for vitamin D synthesis, it is prudent to limit exposure of skin to sunlight and avoid tanning beds. UV radiation is a carcinogen responsible for most of the estimated 1.5 million skin cancers that occur annually in the [place]. Lifetime cumulative UV damage to skin is also responsible for some age-associated dryness and other cosmetic changes. In supplements and fortified foods, vitamin D is available in two forms, D2 (ergocalciferol) and D3 (cholecalciferol). The two are equivalent at normal supplement doses. For women who require high supplement doses because of vitamin D deficiency, D3 may work better to raise blood levels. Some medications can prevent proper absorption of Vitamin D. These include laxatives, corticosteroids like prednisone, the seizure drugs phenobarbital and phenytoin, the weight-loss drug orlistat ( Xenical and AlliTM) and the cholesterol-lowering drug cholestyramine (Questran , LoCholest , and Prevalite ). Talk to your doctor about adjusting your recommended daily vitamin D dosage if you take these medications. You should not exceed 4000 mg of vitamin D supplementation daily unless specifically prescribed by your doctor. Control Options control is a way for men and women to prevent . There are many different methods of control. By learning more about the options, you can decide which method is right for you and your partner. If you are sexually active and don't want a baby, don't wait to use control. An unwanted can happen any time you have unprotected sex. IUD What is it? An IUD, or intrauterine device, is a small, plastic, flexible, T-shaped device that is placed into the uterus (womb). There two types of IUDs. One type, ParaGard , can be kept in place for 10 years. (It contains copper, which stops the sperm from making it through the vagina and uterus to reach the egg, thus preventing fertilization.) It does NOT contain hormones. There are four IUD s that contain progesterone.Mirena is an IUD that contains a small amount of progesterone and is kept in place for 7 years. Kyleena is approved for 5 years and has a slightly lower dose. Anita is similar but smaller and is good for 3 years. Liletta is also approved for 6 years and is ideal for those without insurance coverage. They all release the hormone progesterone, which causes the cervical mucus to become thicker so the sperm cannot reach the egg. The hormone also changes the lining of the uterus, so implantation of a fertilized egg cannot occur. How is it available? You must get a pelvic exam and your provider may check vaginal cultures. The IUD is placed into the uterus through the cervix during an exam in the office by a trained health care provider. How effective is it? The IUD is 99% effective. You should know: Side effects are different for the different IUDs. In some cases copper IUDs can cause more painful and heavy periods and backaches. All of the hormonal IUD s cause periods to be director of design and some women will have spotting or stop getting periods all together. It is normal to have 3 months of light spotting after insertion. IUDs should not be used if you have a recent history of pelvic infections or are at risk for infections. IUDs do not protect against sexually transmitted diseases (STDs), including HIV (the virus that causes AIDS). The male condom provides the best protection against most STDs. THE CONTROL PILL (ORAL CONTRACEPTIVE) How does it work? Pills work by thickening the cervical mucus so the sperm cannot reach the egg. The hormone in the pills also changes the lining of the uterus, so implantation of a fertilized egg cannot occur. In most cases, pills stop ovulation (the release of an egg). How is it used? A pill is taken at the same time every day. There are several different types of pills. Some are designed to allow the woman to have a period every month and others allow the women to have period every 3 months. You need to discuss which pill is best for you with your health care provider. How can I get it? The pill must be ordered for you by your health care provider. It is obtained by prescription. How effective is it? The pill is 99% effective, if taken correctly. However, up to 8% of women may get each year if they do not use it correctly. You should know: Certain medications, which your provider will discuss, cause the pill to lose effectiveness. You should use back-up control while taking these medications. The pill can cause minor side effects such as mood symptoms, breast tenderness, nausea and headaches. The hormones in pills can increase the risk of blood clots which usually form in the legs. This risk is higher in women who smoke. The pill is not recommended for women who are over 35 years of age and smoke, but can be used until menopause if you don't smoke cigarettes and are in good health. The Pill does not protect against STDs, including HIV (the virus that causes AIDS). VAGINAL RING (NuvaRing ) What is it? A small, flexible ring that slowly releases the hormones estrogen and progesterone into the bloodstream through the vaginal wall. It works to prevent the same ways as the pill. How is it used? A vaginal ring is inserted high into the vagina like a tampon. It stays in place for 3 weeks in a row. It is removed for a 1-week break - when the menstrual period occurs - before a new ring is inserted. How can I get it? Your health care provider must order the vaginal ring, which is obtained by prescription. How effective is it? The vaginal ring is 99% effective, if used correctly. However, if used incorrectly, up to 8% of women might get within 1 year. If the ring is removed for more than 3 hours, an additional form of control should be used. You should know: The vaginal ring can cause side effects similar to control pills. The vaginal ring does not protect against STDs, including HIV (the virus that causes AIDS). ANNOVERA is a NEW reusable contraceptive ring approved for one year s use. It is used in a similar fashion as the Nuvaring, but when it is removed, it is stored in a compact case and reused each month for an entire year. ORTHO EVRA -- THE PATCH'' What is it? A patch that prevents by delivering continuous levels of the hormones estrogen and progesterone transdermally (through the skin) and into the bloodstream. It works to prevent the same ways as the pill. How is it used? Ortho Evra is a 1 -inch square patch with hormones embedded in its adhesive layer. It is worn on the lower abdomen, buttocks or upper arm. One patch is worn continuously for 1 week and is replaced with a new patch on the same day of the week (patch change day) for a total of 3 weeks. No patch is worn during the fourth week (patch-free week), when the menstrual period occurs. Although the patch is designed to remain in place during bathing, showering and swimming, you should not apply lotion or oil on or near the patch site. How can I get it? Your health care provider must order the patch, which is obtained by prescription. You apply the patch yourself. How effective is it? The patch is about 99% effective, if used correctly. It is slightly less effective (92%) in women weighing more than 198 pounds. You should know: The patch can cause side effects similar to control pills and can cause an allergic reaction to the adhesive. Some studies have shown the patch delivers higher levels of the hormone estrogen and women may be at greater risk for blood clots. The patch does not protect against STDs, including HIV (the virus that causes AIDS). DEPO-PROVERA What is it? Depo-Provera is a form of the hormone progestin. How is it used? It is given as an injection into the woman's buttocks or arm. Each injection provides protection against for 12 weeks. How is it available? Depo-Provera must be ordered by a health care provider. It is given every 3 months, usually given at the doctor's office. How effective is it? Depo-Provera is 99% effective. You should know: Depo-Provera can cause side effects including mood changes, headaches, breast tenderness, irregular periods and weight gain. Fifty percent of women who use Depo-Provera for more than a year stop getting their periods while on the medication. Because of the risk of bone loss, your provider may recommend calcium supplements for women who use Depo-Provera. Depo-Provera does not protect against STDs, including HIV (the virus that causes AIDS). IMPLANTED HORMONE - NEXPLANON What is it? Nexplanon is a single plastic ignacio (1.5 inches long) that is placed directly under the skin of the upper arm by a physician. It delivers the hormone progesterone slowly over a 3-year period. How can I get it? Nexplanon is placed by a physician who is certified in this procedure. How effective is it? It is greater than 99% effective You should know: The side effects are similar to Depo-Provera. Specific side effects include swelling and/or pain at time of placement, breakage or internal scarring of tissue. The device is effective for 3 years and can be removed at any time before if desired. MALE CONDOM What is it? The male condom, or rubber, is a thin covering made of latex, plastic or animal membrane that is rolled over an erect penis. The covering prevents semen, the fluid that contains sperm, from entering a woman's vagina. Latex condoms are best for most people. Use plastic (Cris ) condoms if you or your partner is allergic to latex. Condoms made from animal skins may not provide good protection from sexually transmitted diseases (STDs). How is it used? The condom is rolled over the erect penis before sexual activity begins. If the condom does not have a built-in nipple, leave -inch of the condom free at the tip of the penis so that semen has a place to collect. A new condom must be used each time you have sex. The condom must be in place before the penis gets near the vagina. How can I get it? Condoms can be purchased at most drug stores. Condoms also are sold in vending machines in restrooms. How effective is it? About 15% of women will get each year when condoms are used. However, condoms can be more effective when they are used exactly as intended. You should know: Latex condoms provide the best protection -- although not 100% protection -- from STDs by preventing the infected area from coming into contact with the partner. Use only water-based lubricants, such as K-Y Jelly or Astroglide . Oil-based lubricants (Vaseline ) can cause condoms to leak or break. If a condom breaks, a woman is at increased risk of getting . She should see her health care provider and consider emergency contraception. FEMALE CONDOM What is it? The female condom is a lubricated polyurethane (plastic) tube that has a flexible ring at each end. One end of the tube is closed. How is it used? Before sexual activity begins, the woman inserts the condom into her vagina so that the closed end of the tube covers the cervix, and the other end slightly covers the labia (lips on the outside of the vagina). The condom blocks sperm from entering the womb. How can I get it? Like the male condom, the female condom is available at drug stores without a prescription. How effective is it? About 21% of women get each year despite using a female condom, but the condom can be more effective when used exactly as instructed. You should know: Female condoms provide some protection against STDs, but the male condom provides the best protection. SPERMICIDES What is it? Spermicides are foams, jellies, tablets, sponges or suppositories that a woman places in her vagina and up next to the cervix (the opening leading from the vagina to the womb) before sex. Spermicides block the cervix and paralyze the sperm, making them unable to travel into the womb. Some women who choose this method will also use a diaphragm (a round piece of flexible rubber with a rigid rim which is inserted with spermicide prior to sex). How is it used? The woman places the spermicide inside the vagina within 1 hour before intercourse. More spermicide must be used each time you have sex. Follow the directions on the package carefully. How can I get it? Spermicides can be bought at most drug stores. Be careful not to confuse them with feminine hygiene products, such as douche or lubricants. Diaphragms are fitted in your doctor's office and if you gain or lose more than 10-15 pounds you may need to be re-fitted. How effective is it? About 29% of women get each year despite using spermicides, but they can be more effective when used exactly as instructed. You should know: Do not douche after sex when using a spermicide. You can wear a feminine pad to absorb spermicide that comes out. Spermicides do not protect against some STDs, including HIV (the virus that causes AIDS). EMERGENCY CONTRACEPTION What is it? Emergency contraception -- also called Plan B , Bridgett , Next Choice or referred to as the morning after pill -- is a form of control that may be used by women within 120 hours (5 days) of having unprotected sex. It is more effective when taken soon after unprotected intercourse. The most commonly used emergency contraception consists of two doses of hormone pills taken in one day 12 hours apart. How does it work? The pill may prevent by temporarily blocking eggs from being produced, by stopping fertilization or keeping a fertilized egg from becoming implanted in the uterus. How is it available? Plan B can be purchased at a pharmacy without a prescription. For those under 17, a health care provider must order the medication. All pharmacies do not have to carry it, so you can sometimes search ahead of time which pharmacy is likely to carry it. See the website: www.ec-help.org. How effective is it? Plan B is about 90% effective when take within 72 hours of unprotected intercourse. Bridgett is slightly more effective. You should know: Plan B is generally reserved for emergency situations and is not a regular method of control. Emergencies include being raped, having a condom break or slip off during sex, missing two or more control pills during a monthly cycle and having unplanned sex. ABSTINENCE Abstinence is also the best way to protect you against STDs. You may not be ready to have sex. Don't let someone pressure you into having sex if you don't feel ready. It is an important decision with serious emotional and physical consequences. VASECTOMY Vasectomy is a simple, safe operation that involves interrupting the tubes call the vas deferens that transport sperm. Vasectomy is a one-time procedure that provides permanent sterilization. The procedure is performed in the office under a local anesthetic. Most men are recovered within a few days of the procedure. To schedule a consultation call [phone] or to learn more about vasectomy, visit [email or web address] Reference Centers for Disease Control: [place] medical eligibility criteria for contraceptive use. www.CDC.gov. Updated 06/03 EMERGENCY CONTRACEPTION INSTRUCTIONS What is the morning-after pill? The morning-after pill is a medication that can be used as emergency contraception ( control). Emergency contraception isn't the same as typical control pills that you might use daily or other forms of routine control. It's used in situations where your control has either failed or you were unable to use protection. Some situations where emergency contraception might be used can include: Having sexual intercourse without any form of control Experiencing control failure (a broken condom, forgotten control pill or missed dose of the control shot) Experiencing non-consensual sexual intercourse (rape) There are many different brand names for the morning-after pill. The progestin-only morning-after pill is levonorgestrel (Plan B One-Step ). This medication is available over the counter. Another type of morning-after pill called ulipristal (bridgett ) is only available by prescription. Other options for emergency contraception aside from the pill include the intrauterine device (IUD). There are two types of IUDs available: the Copper IUD and the Levonorgestrel IUD. These devices are placed into your uterus by a healthcare provider. IUDs can also be used for emergency contraception if inserted up to five days after unprotected sex. Are there different types of morning-after pill? There are three main types of morning-after pill -- each with popular brand names you might have heard of. Progestin-only pill (Plan B One-Step ) Plan B is a type of emergency contraception that's taken as one pill. For the best results, you should take Plan B as soon as possible -- typically within the first three days after unprotected sex. You can take it up to five days after unprotected sex, but the effectiveness of the medication drops. Ulipristal (bridgett ) This type of morning-after pill also works by preventing ovulation. Ulipristal can be more effective than other morning-after pill options when it's taken correctly (within the window of time when it's most effective). People can take ulipristal up to five days after unprotected sex. The most common brand name for this medication is bridgett . Your healthcare provider needs to prescribe ulipristal. Combined control This type of emergency contraception involves taking control pills that contain both progestin and estrogen. Unlike a progestin-only medication like Plan B, this option is typically taken in two doses. It's important to talk to your healthcare provider or pharmacist about the exact dosage (amount of the medication) you'll need and how far apart you should take the two medications. When you use combination control as an emergency contraception option, you're taking a typical control pill at a higher dose. This isn't something you should do without talking to your provider because different brands of control can change the amount you need to take. Combined control (Yuzpe regimen) This type of emergency contraception involves taking extra pills from a regular control pack. It's referred to as the Yuzpe regimen. This method involves combining pills from an available control pack to total 100 mcg of ethinyl estradiol and 0.5 mg levonorgestrel. A second dose is then repeated in 12 hours. It's important to know that this regimen is less effective and less well-tolerated than other forms of emergency contraception. While the most common side effects include nausea and vomiting, taking extra control pills can cause more serious side effects in some people. It increases your risk of blood clots. It should only be considered in cases where other forms of emergency contraception aren't readily available. How does the morning-after pill work? The morning-after pill doesn't reverse . Instead, it's a type of emergency control that prevents . The main way the morning-after pill works is by preventing ovulation. Ovulation is a part of your normal reproductive cycle. This is the phase when your ovaries release an egg that can then be fertilized by sperm and begin the development process. If you don't ovulate, you can't get . How effective is the morning-after pill? When you're thinking about how effective the morning-after pill is at preventing , it's important to factor in time. This is mahmood to the medication's effectiveness. All forms of the emergency contraception pill are more effective the sooner you take it. You don't need to wait to take these medications until the next day -- despite the name morning-after pill. There are certain time frames for each type of morning-after pill. The progestin-only option should be taken within the first 72 hours (three days) after unprotected sexual intercourse. The ulipristal and combined options can be taken up to 120 hours (five days) after sex. Each day you wait outside of these recommended windows of time makes the medication less effective. Procedure Details How long after unprotected sex should I wait before taking the morning-after pill? You don't need to wait until the next morning to take the morning-after pill. Emergency contraception pills are most effective at preventing when they're taken as quickly as possible after unprotected sexual intercourse. The amount of time you have can vary between different medications. Progestin-only pills (Plan B One-Step ): For these medications, you typically have about a three-day window of time when Plan B will still be effective. It becomes less effective at preventing the longer you wait. If you take a progestin-only medication within five days of unprotected sex, it can be moderately effective. Ulipristal (Bridgett ): This type of emergency contraception pill is more effective for a longer period of time. With this medication, you have up to five days after unprotected sex where it's still effective at preventing . Combined control pills: Combining control pills that contain progestin and estrogen can be used as emergency contraception for up to five days after intercourse. There can be a lot of variety between different brands of control pills, so it's a good idea to talk to your healthcare provider about the exact timing and dosage. How many times can you take emergency contraception medications? Even though there isn't a set restriction on how many times you can take the morning-after pill, you shouldn't use it as routine control. This type of control is meant to be used in emergency situations when your control has failed, wasn't used or in cases of non-consensual intercourse. What are the signs that emergency contraception hasn't worked? If you take the morning-after pill in the immediate time window after having unprotected sex, it can be very effective. But it doesn't always work. Emergency contraception medications become less effective the longer you wait before taking them. One of the main signs that a morning-after pill hasn't worked is a missed menstrual period. If your period is more than seven days (a week) later than you expected, take a test. Recovery and [place] What are the side effects of the morning-after pill? For many people, there are no serious side effects of the morning-after pill. Some symptoms of taking a morning-after pill (Plan B One-Step or Bridgett ) can include: Changes to your normal menstrual cycles (your period might be earlier or later than normal). Spotting (light bleeding) Nausea and vomiting Tiredness (fatigue) Headaches and dizziness Pain in your abdomen or breast The side effects of the morning-after pill are mild for most people. But if you notice more severe symptoms or have concerns after taking the morning-after pill, reach out to your healthcare provider. Is there bleeding after I take the morning-after pill? You might experience light bleeding -- called spotting -- after taking the morning-after pill. Even though this doesn't happen to everyone who takes the morning-after pill, it isn't something that should worry you. If you notice that the bleeding is heavier or happens after you've missed a period, reach out to your healthcare provider. Spotting that happens after a missed period could be implantation bleeding. This light bleeding happens early during development when the embryo embeds itself into the lining of your uterus (endometrium). Can morning-after pill make your period late or disrupt your cycle? The morning-after pill can cause your next period to be irregular. If your period is late or abnormal, contact your healthcare provider and consider taking a home test. Your provider will advise you on your next steps if your menstrual cycle doesn't return to normal. Can I get again after taking the morning-after pill? The morning-after pill isn't a permanent form of control. It won't harm your chances of getting in the future or impact your fertility. These medications (Plan B One-Step , bridgett and other generic options) are a temporary way to prevent -- they aren't long-term forms of control. When to Call the Doctor Should I see my doctor after taking the morning-after pill? In most cases you won't need to see your healthcare provider after taking the morning-after pill. However, if you haven't gotten your period within a week of when you expect it or you experience unusual bleeding, it's often a good idea to talk to your healthcare provider. A missed period is one of the earlier signs of . It's also important to remember that the morning-after pill won't protect you from sexually transmitted infections (STIs). If you have any concerns that you might have been exposed to an STI, reach out to your provider. Frequently Asked Questions Does the morning-after pill work if I take it first and then have unprotected sex? The morning-after pill is designed to be taken shortly after unprotected sex to prevent . It's not meant to be regular control. Talk to your healthcare provider about your options for control to find an option that works best for your lifestyle. Can my weight impact the effectiveness of the morning-after pill? There's research that suggests that your weight can impact how effective the morning-after pill will be for you. People with a higher body mass index (BMI) may not experience the same level of effectiveness when using the morning-after pill as people with a lower BMI. One type of emergency contraception that's highly effective at any weight is an intrauterine device (IUD). Is the morning-after pill available over the counter? The Plan B One-Step pill and other progestin-only forms of emergency contraception are available over the counter. However, ulipristal (bridgett ) is a prescription-only medication. You should also talk to your healthcare provider before taking combined control pills to make sure you take the correct dosage (amount). A note from [facility] The morning-after pill is a form of emergency contraception ( control) that's meant to help prevent . This medication doesn't end an already established . If you take a morning-after pill, it's important to remember that the medication will be the most effective the sooner you take it. You typically have between three to five days after unprotected sex when the morning-after pill is most effective at preventing . If you have any questions about emergency contraception, talk to your healthcare provider. References: [facility] [facility]. Emergency Contraception. (https://www.aafp.org/afp/2003/0 815/p707.html) Accessed 08/14/2021. Centers for Disease Control and Prevention. Emergency Contraception. (https://www.cdc.gov/reproductiv ehealth/contraception/mmwr/spr/e mergency.html) Accessed 08/14/2021. National Health Service. Emergency contraception (morning after pill, IUD). (https://www.nhs.uk/conditions/c ontraception/emergency-contracep tion/) Accessed 08/14/2021. [employer]. Emergency Contraception. (https://www.acog.org/womens-hea lth/faqs/emergency-contraception ) Accessed 08/14/2021. U.S. Department of Health and Human Services, Office on Women's Health. Emergency contraception. (https://www.womenshealth.gov/a- z-topics/emergency-contraception ) Accessed 08/14/2021. Terms Linked In This Article: control (https://friendfund.[employer].org/ health/articles/08329-ybwoi-lghm rol-options) condom (https://[employer]/ health/drugs/9404-condoms) control pill (https://friendfund.[employer].org/ health/drugs/7208-vxspg-pmlklse- the-pill) control shot (https://friendfund.[employer]/ health/drugs/3776-arek-flbohyi%C 2%XF-wspdp-frvwzyn-shot) rape (https://[employer].org/ health/articles/4209-arpi-vzd-da te-rape) Copper IUD (https://[employer]/ health/drugs/02993-sswirhvi%C2%A Q-zsebxx-xyz) Levonorgestrel IUD (https://friendfund.[employer].org/ health/drugs/14468-xsfnmjwjyfnxu p-ubldsjadnjni-khnzcm-iud) normal reproductive cycle (https://friendfund.[employer].org/ health/articles/3944-inevgb-uvwl oductive-system) development process (https://my.[employer].org/ health/articles/8658-pnjkw-dpvpt pjwgkf-hvfvvb-lr-growth) test (https://friendfund.[employer].org/ health/articles/7272-ufokakkno-t ests) Nausea and vomiting (https://friendfund.[employer].org/ health/symptoms/8106-nausea--vom iting) Headaches (https://friendfund.[employer].org/ health/diseases/9639-headaches) dizziness (https://friendfund.[employer].org/ health/symptoms/6422-dizziness) Pain in your abdomen (https://friendfund.[employer]org/ health/symptoms/8234-jeygxyljx-h ain) earlier signs of (https://friendfund.[employer].org/ health/articles/6057-biyfkmftm-l h-u-mvdmaudh) sexually transmitted infections (STIs) (https://friendfund.[employer].org/ health/diseases/6396-fgcnkpyy-vb ansmitted-diseases--infections-s tds--stis) body mass index (BMI) (https://friendfund.[employer]/ health/articles/5770-veon-ujwr-i ndex-bmi) intrauterine device (IUD) (https://friendfund.[employer]/ health/drugs/35962-krmvvthf%C2%A L-hrucjc-ocs) Last reviewed by a [facility] medical professional on 08/14/2021 Original Article https://[email or web address].org/h ealth/treatments/09581-jeqoonb-z fter-pill Date Published August 27, 2021 Call Appointment Center 24/7 [phone] documented in this encounter [facility] 03-28-2024 Note HNO ID: [id number] Author: FAY FREEMAN MD Service: ? Author Type: Physician Type: Progress Notes Filed: 03/28/2024 13:00 Note Text: Dat is a 33 year old who presents for an annual gynecologic exam with complaints, pelvic pain. Pain at her incision from 2019 - painful lump, becomes very tender before and during menses. Started recently within the last few months. No endometriosis diagnosis, nothing on op report Menses have been heavier with dysmenorrhea since her first delivery in 2015 No hormonal mgmt currently In the past she has used IUD, OCPs, Depo Provera (weight gain), Nuva ring (discomfort) She had a CT A/P in 2021 that showed: Abdominal Wall: 1.5 cm fat-containing periumbilical anterior abdominal wall defect. Odor after menses - uses boric acid and helps restore odor after a menses a few years ago Newly sexually active after 2 years. Menses: cycles every month and 5 days of flow. Flow is very heavy, uses 2 pads every few hours Cramps are awful, excruciating. 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 PLTS 125. Alisson Gee MD PAST SURGICAL HISTORY Procedure Laterality Date DELIVERY ONLY 08/18/2018 RC/S low transverse SECTION HX 07/2015 PAST SURGICAL HISTORY OF 2007 fatty tumor between breasts removed FAMILY HISTORY Problem Relation Age of Onset Thyroid Mother Lung Cancer Mother Hypertension Father No Known Problems Sister other ( at , unknown) Brother Cancer Maternal Grandmother Cancer Maternal Grandfather Brain Cancer Paternal Grandmother Cancer Paternal Grandfather Blood Clots Paternal Grandfather No Known Problems Daughter No Known Problems Son Breast Cancer No Family History Ovarian cancer No Family History Colon Cancer No Family History Prostate Cancer No Family History SOCIAL HISTORY Social History Tobacco Use Smoking status: Never Passive exposure: Never Smokeless tobacco: Never Vaping Use Vaping status: Never Used Substance Use Topics Alcohol use: No Drug use: No REVIEW OF SYSTEMS Abdomen: No nausea, vomiting, diarrhea, or constipation. No bloating, early satiety, indigestion, or increased flatulence. Bladder: No dysuria, gross hematuria, urinary frequency, urinary urgency, or incontinence. SOSA with cough or sneeze Breast: No breast lumps, nipple d/c, overlying skin changes, redness or skin retraction. Allergies and current medication updated:Yes EXAM: BP 106/62 Wt 234 lb 9.1 oz (106.4kg) LMP 03/04/2024 GENERAL: pleasant, female in no apparent distress HEENT: Normocephalic and atraumatic NECK: Supple and full range of motion DERMATOLOGY: Normal, without lesions, non-icteric and non-hirsute BREAST: soft, non-tender, symmetric, no dominant mass, normal nipple-areolar complex, no lymphadenopathy, and no nipple discharge CHEST: Normal inspiratory effort ABDOMEN: soft, obese. Well-healed Pfannenstiel incision. Beneath right corner of the incision is a tender, flat nodule. PELVIC: external genitalia normal, normal Bartholin's glands, urethra, Roscommon's glands, no vulvar lesions, no cervical lesions, good vaginal support, physiologic discharge present, normal appearing perineal body and perianal region BIMANUAL: uterus normal size, shape and consistency, no adnexal masses, and non-tender RECTOVAGINAL: deferred. NEURO: alert and oriented x3,exam grossly non-focal EXTREMITIES: normal System Software Developer present: declined SENSITIVE EXAM: The sensitive examination was discussed with the Patient or Patient's Authorized Hogshead Cooper. As applicable, any other physician, advance practice provider, medical student, or other health professional student that will be observing or involved in the sensitive examination for educational or training purposes was discussed with the Patient or Authorized Hogshead Cooper. The Patient or Authorized Hogshead Cooper has agreed to proceed with the sensitive examination. (Sensitive examina (more content not included)... [facility] 03-28-2024 History of Presen t illness Narrative Dat is a 33 year old who presents for an annual gynecologic exam with complaints, pelvic pain. Pain at her incision from 2019 - painful lump, becomes very tender before and during menses. Started recently within the last few months. No endometriosis diagnosis, nothing on op report Menses have been heavier with dysmenorrhea since her first delivery in 2015 No hormonal mgmt currently In the past she has used IUD, OCPs, Depo Provera (weight gain), Nuva ring (discomfort) She had a CT A/P in 2021 that showed: Abdominal Wall: 1.5 cm fat-containing periumbilical anterior abdominal wall defect. Odor after menses - uses boric acid and helps restore odor after a menses a few years ago Newly sexually active after 2 years. Menses: cycles every month and 5 days of flow. Flow is very heavy, uses 2 pads every few hours Cramps are awful, excruciating. 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 PLTS 125. Alisson Gee MD PAST SURGICAL HISTORY Procedure Laterality Date DELIVERY ONLY 08/18/2018 RC/S low transverse SECTION HX 07/2015 PAST SURGICAL HISTORY OF 2007 fatty tumor between breasts removed FAMILY HISTORY Problem Relation Age of Onset Thyroid Mother Lung Cancer Mother Hypertension Father No Known Problems Sister other ( at , unknown) Brother Cancer Maternal Grandmother Cancer Maternal Grandfather Brain Cancer Paternal Grandmother Cancer Paternal Grandfather Blood Clots Paternal Grandfather No Known Problems Daughter No Known Problems Son Breast Cancer No Family History Ovarian cancer No Family History Colon Cancer No Family History Prostate Cancer No Family History SOCIAL HISTORY Social History Tobacco Use Smoking status: Never Passive exposure: Never Smokeless tobacco: Never Vaping Use Vaping status: Never Used Substance Use Topics Alcohol use: No Drug use: No REVIEW OF SYSTEMS Abdomen: No nausea, vomiting, diarrhea, or constipation. No bloating, early satiety, indigestion, or increased flatulence. Bladder: No dysuria, gross hematuria, urinary frequency, urinary urgency, or incontinence. SOSA with cough or sneeze Breast: No breast lumps, nipple d/c, overlying skin changes, redness or skin retraction. Allergies and current medication updated:Yes EXAM: BP 106/62 Wt 234 lb 9.1 oz (106.4kg) LMP 03/04/2024 GENERAL: pleasant, female in no apparent distress HEENT: Normocephalic and atraumatic NECK: Supple and full range of motion DERMATOLOGY: Normal, without lesions, non-icteric and non-hirsute BREAST: soft, non-tender, symmetric, no dominant mass, normal nipple-areolar complex, no lymphadenopathy, and no nipple discharge CHEST: Normal inspiratory effort ABDOMEN: soft, obese. Well-healed Pfannenstiel incision. Beneath right corner of the incision is a tender, flat nodule. PELVIC: external genitalia normal, normal Bartholin's glands, urethra, Roscommon's glands, no vulvar lesions, no cervical lesions, good vaginal support, physiologic discharge present, normal appearing perineal body and perianal region BIMANUAL: uterus normal size, shape and consistency, no adnexal masses, and non-tender RECTOVAGINAL: deferred. NEURO: alert and oriented x3,exam grossly non-focal EXTREMITIES: normal System Software Developer present: declined SENSITIVE EXAM: The sensitive examination was discussed with the Patient or Patient's Authorized Hogshead Cooper. As applicable, any other physician, advance practice provider, medical student, or other health professional student that will be observing or involved in the sensitive examination for educational or training purposes was discussed with the Patient or Authorized Hogshead Cooper. The Patient or Authorized Hogshead Cooper has agreed to proceed with the sensitive examination. (Sensitive examination includes inspection and/or palpation of the breasts, pelvis, prostate and anorectal regions). ASSESSMENT/PLAN: Abdominal wall pain, nodule Possible lesion palpable on exam and pt reports it is more prominent during menses Significant dysmenorrhea history Clinical picture is suspicious for endometriosis with ab abdominal wall lesion MRI ordered If necessary for insurance reasons we can get an US first We discussed options for empiric hormonal mgmt - she declines for now Accepts Rx for Lysteda for use during menses Health maintenance: Pap done with HPV. Mammogram starting age 40. Nutrition, exercise and routine health maintenance exams reviewed. HPV vaccine: completed series (will double check her records) Contraception: condoms. Contraceptive options reviewed and information provided. STD screening: Accepts full STD screeening including HIV, Syphilis and Hepatitis. Follow up one year or sooner as needed Fay Freeman MD In addition to the usual components of the annual exam, significant medical decision making was provided for the issues of: Abdominal wall nodule, dysmenorrhea, endometriosis. This is reflected in the E&M billing level calculated below and will be billed accordingly. Medical Decision Making: Problems: Low: Acute, uncomplicated illness or injury Data: Unique test result(s) reviewed: 1 Unique test(s) ordered: 2 Risk: Moderate: Drug management Medical Decision Making Level: 4 - Moderate documented in this encounter [facility] 01-05-2024 History of Presen t illness Narrative Radiology Service Progress Note PATIENT NAME: Dat Higgins DATE OF SERVICE: January 05, 2024 TIME: 11:02 AM PATIENT IDENTITY VERIFICATION COMPLETED USING TWO (2) IDENTIFIERS: Name and Date of confirmed by patient verbally. FALL SCREENING: Has the patient had 2 falls in the last year or 1 fall with injury or currently using an Ambulatory Assistive Device (Walker, Cane, Wheelchair, Crutches, etc.)? No PATIENT GENDER DATA: Female. status: : No status: NO. PATIENT RELEVANT IMPLANT DATA REVIEWED: Not Applicable PATIENT PRESENTS WITH AN IMPLANTABLE OR ATTACHED ASSET ACCOUNTANT: No RADIOLOGY DEPARTMENT: Ultrasound PERIPHERAL IV DATA: Not applicable SIGNED BY: Sania Chase RDMS RVT January 05, 2024 11:02 AM documented in this encounter [facility] 01-05-2024 Note HNO ID: [id number] Author: SANIA CHASE RDMS Service: ? Author Type: Ranger Aide Type: Progress Notes Filed: 01/05/2024 11:02 Note Text: Radiology Service Progress Note PATIENT NAME: Dat Higgins DATE OF SERVICE: January 05, 2024 TIME: 11:02 AM PATIENT IDENTITY VERIFICATION COMPLETED USING TWO (2) IDENTIFIERS: Name and Date of confirmed by patient verbally. FALL SCREENING: Has the patient had 2 falls in the last year or 1 fall with injury or currently using an Ambulatory Assistive Device (Walker, Cane, Wheelchair, Crutches, etc.)? No PATIENT GENDER DATA: Female. status: : No status: NO. PATIENT RELEVANT IMPLANT DATA REVIEWED: Not Applicable PATIENT PRESENTS WITH AN IMPLANTABLE OR ATTACHED ASSET ACCOUNTANT: No RADIOLOGY DEPARTMENT: Ultrasound PERIPHERAL IV DATA: Not applicable SIGNED BY: Sania Chase RDMS RVT January 05, 2024 11:02 AM [facility] Evaluation note Diagnosis RUQ abdominal pain Abdominal pain, right upper quadrant documented in this encounter [employer] Work Phone: evaluation note* Diagnosis Abdominal pain, epigastric- Primary Acute superficial gastritis without hemorrhage Diarrhea, unspecified type Acute cystitis without hematuria Acute cystitis documented in this encounter [employer] Phone: evaluation noteNo assessment information available [facility] Work Phone: Evaluation note* Diagnosis Encounter for gynecological examination (general) (routine) without abnormal findings- Primary Screening for cervical cancer Screening for malignant neoplasm of the cervix Encounter for screening for human papillomavirus (HPV) Special screening examination for human papillomavirus (HPV) Screen for STD (sexually transmitted disease) Screening examination for venereal disease History of 2 sections Subcutaneous nodule of abdominal wall Endometriosis Endometriosis, site unspecified Dysmenorrhea [facility] Missed menses- Primary Absence of menstruation [facility] Attachments The following attachments cannot be sent through Care Everywhere. * UTI (Urinary Tract Infection): Female (Burundian) * Gastritis ([place]) [facility] Additional Instructions Tylenol and Motrin for pain. Follow-up with a local doctor if not improving or return if worse.[facility] Work Phone: Summary Purpose Family History No Family History Records FoundNo Family History Records FoundNo Family History Records FoundNo Family History Records FoundNo Family History Records FoundNo Family History Records FoundNo Family History Records FoundNo Family History Records FoundNo Family History Records FoundNo Family History Records FoundNo Family History Records FoundNo Family History Records Found Advance Directives No Advanced Directives Records FoundDocuments on File Type Date Recorded Patient Hogshead Cooper Expl anation ACP-Advance Directive ACP-Power of Outside Event Sales Specialist Advance Directive Response Recorded Date/ Time Living Will No February 01 9:54am Power of Outside Event Sales Specialist No February 01, 2022 9:54am Advance Directive Response Recorded Date/ Time Living Will No February 01 10:54am Power of Outside Event Sales Specialist No February 01, 2022 10:54am Chief Complaint and Reason for Visit Chief Complaint abd pain Additional Source Comments INFORMATION SOURCE (unrecogn ized section and content) DATE CREATED AUTHOR 08/05/2017 [facility] DATE CREATED AUTHOR AUTHOR'S ORGANIZ ATION 08/10/2017 [facility] DATE CREATED AUTHOR AUTHOR'S ORGANIZ ATION 08/10/2017 [facility] DATE CREATED AUTHOR AUTHOR'S ORGANIZ ATION 08/25/2017 [facility] DATE CREATED AUTHOR AUTHOR'S ORGANIZ ATION 04/05/2018 [facility] DATE CREATED AUTHOR AUTHOR'S ORGANIZ ATION 03/07/2021 [facility] DATE CREATED AUTHOR AUTHOR'S ORGANIZ ATION 03/10/2021 [facility] DATE CREATED AUTHOR AUTHOR'S ORGANIZ ATION 05/23/2021 [facility] DATE CREATED AUTHOR AUTHOR'S ORGANIZ ATION 01/24/2023 [facility] DATE CREATED AUTHOR AUTHOR'S ORGANIZ ATION 11/19/2023 [facility] DATE CREATED AUTHOR AUTHOR'S ORGANIZ ATION 01/10/2024 [facility] DATE CREATED AUTHOR AUTHOR'S ORGANIZ ATION 09/05/2024 [facility] Reason for Visit (unrecogniz ed section and content) Reason Comments Abdominal Pain started a week ago - on/off right upper Reason Comments Radiology US Specialty Diagnoses / Procedures Referred By Contac t Referred To Contact Radiology / [facility] Diagnoses Intra-abdominal and pelvic swelling, mass and lump, unspecified site Pelvic and perineal pain Lower Quad Abd. Mass Procedures US TRANSVAGINAL US PELVIS/TRANSVAGINAL Sania Maria [address] [place] [address] Radio [facility] [address] [place] [address] Referral ID Status Reason Start Date Expiration Date Visits Re quested Visits Authorized [id number] Closed 12/29/2023 02/14/2024 1 1 Reason Comments Well Woman Pain near csection s car Reason Comments Early OB Electrical Shock Ordered Prescriptions (unrec ognized section and content) Prescription Sig Dispensed Refills Start Date End Da te omeprazole (PRILOSEC) 20 MG delayed release capsule Take 1 capsule by mouth daily 30 capsule 0 04/01/2021 ciprofloxacin (CIPRO) 500 MG tablet Take 1 tablet by mouth 2 times daily for 7 days 14 tablet 0 04/01/2021 04/08/2021 ondansetron (ZOFRAN ODT) 4 MG disintegrating tablet Take 1 tablet by mouth every 8 hours as needed for Nausea 10 tablet 0 04/01/2021 Scheduled Active and Recently Administ ered Medications (unrecognized section and content) Medication Order 03/30/2021 03/31/2021 04/01/2021 0.9 % sodium chloride bolus (COMPLETED) 1,000 mL (9.59 mL/kg), IntraVENous, at 500 mL/hr, Administer over 2 Hours, ONCE, On Tue04/01/21 at 1634, For 1 dose 1645 (New Bag - Prov ider: Mala Judge RN)1849 (Stopped - Provider: Compa Wing RN) cefTRIAXone (ROCEPHIN) 1000 mg IVPB in 50 mL D5W minibag (COMPLETED) 1,000 mg, IntraVENous, ONCE, 1 dose, On Tue04/01/21 at 1717 1723 (New Bag - Prov ider: Mala Judge RN)1849 (Stopped - Provider: Compa Wing RN) fentaNYL (SUBLIMAZE) injection 100 mcg (COMPLETED) 100 mcg, IntraVENous, ONCE, On Tue04/01/21 at 1634, For 1 dose, If oral and IV narcotics ordered, use oral first and only use IV if oral is ineffective or cannot take oral. Do Not give oral and IV within 1 hour of each other unless specifically ordered. 1644 (Given - Provid er: Mala Judge RN) ondansetron (ZOFRAN) injection 4 mg (COMPLETED) 4 mg, IntraVENous, ONCE, On Tue04/01/21 at 1634, For 1 dose 1643 (Given - Provid er: Mala Judge RN) PRN Medication Order 03/30/2021 03/31/2021 04/01/2021 iopamidol (ISOVUE-370) 76 % injection 100 mL (COMPLETED) 100 mL, IntraVENous, IMG ONCE PRN, Other, Starting on Tue04/01/21 at 1722, For 1 dose 1729 (Given - Provid er: Ivanna Naranjo) Goals (unrecognized section and content) Goals may be documented in a n alternate sectionGoals may be documented in an alternate section Care Teams (unrecognized sec tion and content) Team Status: Active Member Role Status Dates No Primary Care Physician Family Provider Active No Primary Care Physician Primary Care Provider Active Team Status: Inactive Member Role Status Dates No Primary Care Physician Primary Care Provider Active Kenzie Hoang MD Attending Provider Active Substation Operator 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 Relationship Specialty Start Date End Date Kaley Aguilar CNP PCP - General Family Medicine 03/30/18 Substation Operator Apprentice Relationship Specialty Start Date End Date Kaley Aguilar CNP PCP - General Family Medicine 03/30/18 Substation Operator Apprentice Relationship Specialty Start Date End Date Kaley Aguilar CNP PCP - General Family Medicine 03/30/18 Substation Operator Apprentice Relationship Specialty Start Date End Date Kaley Aguilar CNP PCP - General Family Medicine 03/30/18 Substation Operator Apprentice Relationship Specialty Start Date End Date Kaley Aguilar CNP PCP - General Family Medicine 03/30/18 Source Comments (unrecognize d section and content) In the event this informatio n is protected by the Federal Confidentiality of Alcohol and Drug Abuse Patient Records regulations: The Federal rules restrict any use of the information to criminally investigate or prosecute any alcohol or drug abuse patient.[facility] the event this information is protected by the Federal Confidentiality of Alcohol and Drug Abuse Patient Records regulations: The Federal rules restrict any use of the information to criminally investigate or prosecute any alcohol or drug abuse patient.[facility] the event this information is protected by the Federal Confidentiality of Alcohol and Drug Abuse Patient Records regulations: The Federal rules restrict any use of the information to criminally investigate or prosecute any alcohol or drug abuse patient.[facility] the event this information is protected by the Federal Confidentiality of Alcohol and Drug Abuse Patient Records regulations: The Federal rules restrict any use of the information to criminally investigate or prosecute any alcohol or drug abuse patient.[facility] the event this information is protected by the Federal Confidentiality of Alcohol and Drug Abuse Patient Records regulations: The Federal rules restrict any use of the information to criminally investigate or prosecute any alcohol or drug abuse patient.[facility] FOR RECORDS PERTAINING TO PATIENTS WHO ARE OR HAVE BEEN ENROLLED IN A CHEMICAL DEPENDENCY/SUBSTANCEABUSE PROGRAM, SOME INFORMATION MAY BE OMITTED. This clinical summary was aggregated from multiple sources. Caution should be exercised in using it in the provision of clinical care. This summary normalizes information from multiple sources, and as a consequence, information in this document may materially change the coding, format and clinical context of patient data. In addition, data may be omitted in some cases. CLINICAL DECISIONS SHOULD BE BASED ON THE PRIMARY CLINICAL RECORDS. [employer] [facility]. provides no warranty or guarantee of the accuracy or completeness of information in this document.
[2024-11-07 21:13] LABS: Squamous Epithelial Cells - UA 5-10 SEEN /hpf (5-10)
== END 2024-11-07 20:00 | disposition left against medical advice (07) ==
LOC: ED 20:21
DX: R10.9 Unspecified abdominal pain (principal)
CPT/HCPCS: 36415; 80053; 81001; 83690; 84703; 85025

== ENCOUNTER 2025-01-26 07:55 | Emergency (ER) | payer MEDICAID, SELFPAY ==
[2025-01-26 07:55] VITALS: BP 148/74; PULSE 109; RESP 17; TEMP 36.3; O2SAT 100; BMI 41.3
--- NOTE | 2025-01-26 08:19 | EDS_ITS ---
HPI HPI - Female History of Present Illness Chief Complaint: PFSH PFSH Home Medications ?Medication ?Instructions ?Recorded ?Last Taken ?Type vits,calcium no.78-iron 1 tab PO DAILY PREGNA NCY 07/23/18 08/17/18 18:00 History fumarate-folic acid 29 mg-1 mg 1 tab tablet (Prenatabs FA) cephalexin 500 mg capsule 500 mg PO Q8H 7 days #21 cap s 01/26/25 Unknown Rx Allergy/AdvReac Type Severity Reaction Status Date / Time latex Allergy Rash Verified 01/26/25 07:59 Surgical History (Updated 01/26/25 @ 08:07 by Kvng Shukla) Hx of section Social History Smoking Status: Never smoker EXAM Physical Exam Const Vital Signs: 01/26/25 07:55 01/26/25 09:55 01/26/25 10:35 Temperature 97.4 F L 98 F Temperature Source Temporal Pulse Rate 109 H 99 88 Respiratory Rate 17 16 16 Blood Pressure 148/74 H 156/100 H 149/88 H Blood Pressure Mean 98 118 108 Pulse Ox 100 100 100 Oxygen Delivery Method Room Air Room Air MDM MDM MDM Narrative Medical decision making narrative: HISTORY OF PRESENT ILLNESS: Chief complaint: Abdominal pain 34-year-old female who is a G3, P2 who presents with abdominal pain. She states this began overnight as she was at work and on her feet a lot. She further states she is 12 weeks . She states she is feeling like [place]. She denies nausea or vomiting. Denies vaginal bleeding. Denies passing tissue. Denies changes to bowel or bladder habits. Denies fever. Denies history of miscarriage. REVIEW OF SYSTEMS: Pertinent positives: Abdominal pain Pertinent negatives: Nausea, vomiting, vaginal bleeding, passage of tissue, leakage of fluid PHYSICAL EXAM: Nursing triage notes reviewed, Vital signs reviewed Constitutional: please see mdm HENT: MMM Eyes: Pupils equal round and reactive to light, Extraocular muscles intact Neck: No stridor, no JVD, full neck ROM Lungs: Clear to auscultation, No wheezing or rales. No increased work of breathing, no conversational dyspnea, no accessory muscle use, no nasal flaring. No respiratory distress noted Heart: Regular rate and rhythm, No murmurs, No rubs and No gallops, 2+ distal pulses (radial, femoral, posterior tibial) in all extremities Abdomen: Soft, there is no tenderness, rigidity, rebound or guarding, no obvious peritoneal signs, no palpable pulsatile abdominal masses, no auscultated abdominal bruit : No CVAT Extremities: No edema Neuro: No new focal neurological deficits, cranial nerves II through XII intact, 5/5 strength in all present extremities. Intact sensation to light touch in all present extremities, 2+ reflexes bilateral patella tendons. Skin: No rash or lesions noted MEDICAL DECISION MAKING: Chief Complaint: please see HPI External records reviewed: No recent advanced imaging of the abdomen or pelvis. No reported ultrasounds. Factors affecting care: Social determinants of health: History obtained from others: none Consults: none [facility] Narrative: Patient was initially hemodynamically stable, afebrile and [id number]. Abdominal exam overall benign. I considered the following differential diagnosis: AAA, small bowel obstruction, abdominal perforation, appendicitis, pancreatitis, hepatobiliary pathology (acute cholecystitis), mesenteric ischemia, pathology (ie nephrolithiasis, pyelonephritis). related complication (ectopic , miscarriage amongst others) I obtained broad lab and imaging workup to further determine if the patient was suffering from a life-threatening etiology. Initially treated with 1 L of normal saline, 1 g of Tylenol ALL IMAGES (IF OBTAINED) HAVE BEEN PERSONALLY REVIEWED AND INTERPRETED BY MYSELF. CBC with no leukocytosis to suggest admission, mild anemia, no thrombocytopenia BMP without evidence of significant electrolyte abnormalities, no anion gap, no acute kidney injury. Qualitative hCG appropriate for early Urinalysis without evidence of infection however there is evidence of inflammation. Will treat recent antibacterial with oral antibiotics and send urine for culture. First trimester transvaginal ultrasound showed single live intrauterine preg ricky The synthesis of the patient's history, physical exam, labs images suggest no acute life-limiting etiology. The patient abdominal exam not consistent with acute surgical process. Repeat abdominal exam remained benign. He is appropriate for discharge home with close OB follow-up. Will give antibiotics given concern for asymptomatic bacteriuria in . Will send for urine culture. The patient and/or family, caregivers express understanding. The patient and/or family, caregivers agrees with the plan. Shared decision making: I will have a discussion with the patient and or visitors regarding risk/benefits of further testing or admission. They will be made aware of of the risk/benefits inherent in this decision they will be given the opportunity to voice understanding. Total critical care time today provided was at least 0 minutes. This excludes separately billable procedures. Critical care time (if documented) is secondary to the patient having high probability of clinically significant/life threatening deterioration in the patient's condition which required my urgent intervention. Impression: 1. Abdominal pain 2. First trimester Dispo: Discharge home This note was generated with [employer] dictation software. It may contain incorrect words, spelling, and punctuation that were not noted in review of the chart prior to signing. Lab Data Labs: Laboratory Results - last 24 hr 01/26/25 08:55 WBC 6.9 RBC 4.51 Hgb 11.7 L Hct 36.2 L MCV 80.3 L MCH 25.9 L MCHC 32.3 RDW Std Deviation 44.7 H RDW Coeff of Izaiah 15.5 H Plt Count 232 MPV 9.0 Immature Gran % (Auto) 0.300 Neut % (Auto) 71.1 H Lymph % (Auto) 20.6 [place] % (Auto) 7.1 Eos % (Auto) 0.6 Baso % (Auto) 0.3 Absolute Neuts (auto) 4.9 Absolute Lymphs (auto) 1.43 Nucleated RBC % 0 Sodium 137 Potassium 3.8 Chloride 102 Carbon Dioxide 22.2 Anion Gap 13 BUN 6 Creatinine 0.53 L Estim Creat Clear Calc 162.89 Est GFR (MDRD) Non-Af 125 BUN/Creatinine Ratio 11.8 Glucose 87 Calcium 9.5 HCG, Quant 12414 H Urine Color Yellow Urine Clarity Sl. Cloudy Urine pH 6.5 Ur Specific [place] 1.020 Urine Protein 15 H Urine Glucose (UA) Normal Urine Ketones Negative Urine Occult Blood Negative Urine Nitrite Negative Urine Bilirubin Negative Urine Urobilinogen Normal Ur Leukocyte Esterase 500 H Urine RBC 0 SEEN Urine WBC 0-5 SEEN Ur Squamous Epith Cells 10-25 SEEN Amorphous Sediment 2+ Urine Bacteria RARE Urine Mucus 0 SEEN Blood Type O POSITIVE Radiography Diagnostic Testing: Clinical Impression(s) from Imaging Studies Obstetrics Ultrasound 01/26/25 08:38 IMPRESSION: Intrauterine with gestational sac measuring 4.6 cm and yolk sac measuring 4 mm and CRL measuring 46 mm corresponding with gestational age of 11 weeks and 2 days. Reading Location: [facility] Discharge Plan Triage Chief Complaint: ED Provider: Byron Harkins Dx/Rx/DC Orders Instructions: ED Abdominal Pain, Early Prescriptions: New cephalexin 500 mg capsule 500 mg PO Q8H 7 Days Qty: 21 0RF No Action Prenatabs FA 1 TABLET tablet 1 tab PO DAILY Stand Alone Forms: ED Work / School Excuse Primary Care Provider: Care Physician,No Primary Referrals: Yana Yung MD [Med Staff - Active Staff, Obstetrics-Gynecology (OBGYN)] Activity Restrictions/Additional Instructions: Thank you for trusting us with your care today! Your labs and images were reassuring. Specifically your baby's heart rate was in a reassuring range. We did see some evidence of inflammation in your urine. While is not consistent with a UTI it is concerning in as urinary inflammation/infection can precipitate labor. This is treated antibiotics. Please take antibiotics as prescribed course complete Please take Tylenol (2 pills, 650 mg), every 6 hours as needed for pain and fever control. Please return to the emergency department if your symptoms change or worsen. Please follow with [facility] for further outpatient evaluation and management. Print Language: [place] Disposition Disposition: Home, Self Care Discharge Date/Time: 01/26/25 10:45
--- NOTE | 2025-01-26 08:38 | US_ITS ---
PROCEDURE: TRANSVAGINAL W/PREG US 01/26/2025 REASON FOR EXAM: ABDOMINAL PAIN FOR TRIMESTER TECHNIQUE: Procedure Code: USTVAGP Modality: US Procedure: TRANSVAGINAL W/PREG US FINDINGS Uterus measures 13.4 x 9.4 x 8 cm. Intrauterine with gestational sac measuring 4.6 cm and yolk sac measuring 4 mm and CRL measuring 46 mm corresponding with gestational age of 11 weeks and 2 days. heart rate of 166 bpm. Right ovary measures 3.3 x 2.8 x 2.1 cm and left ovary measures 3.6 x 2.9 x 2.3 cm. There is normal bilateral symmetrical blood flow within bilateral ovaries. No significant free fluid within the cul-de-sac. US/Transvaginal w/Preg US IMPRESSION: Intrauterine with gestational sac measuring 4.6 cm and yolk sac measu ring 4 mm and CRL measuring 46 mm corresponding with gestational age of 11 weeks and 2 days. Reading Location: [id number]
--- OUTSIDE RECORDS SUMMARY | 2025-01-26 08:40 | XMS RPT_ITS | CCD ---
Author Organization [place] [facility], [facility] Care Team Providers Care Knot Saw Operator Name Role Phone KALEY AGUILAR Unavailable Unavailable KALEY AGUILAR Unavailable Unavailable PROVIDER, UNKNOWN Unavailable Unavailable PROVIDER, UNKNOWN Unavailable Unavailable No, PCP Unavailable Unavailable Unavailable Primary Care Provider UnavailMITUL Whittaker Attending Unavailable LAUREN, KALEY Primary Care Unavailable IVANNA LAW Referring Unavailable LAUREN, KALEY Primary Care Unavailable SASHA CATHERINE Attending Unavailable Paxton AZAM, Kaley Primary Care Provider BENJIE BECK Attending Unavail able INDIA CHAPPELL Attending Unavailable LAUREN, KALEY Primary Care Unavailable INDIA CHAPPELL Referring Unavailable LAUREN, KALEY Primary Care Unavailable SANIA MARIA Referring Unavailable LAUREN, KALEY Primary Care Unavailable FAY FRANKS Attending Unavailable LAUREN, KALEY Primary Care Unavailable FAY FRANKS Referring Unavailable LAUREN, KALEY Primary Care Unavailable EFRAÍN ANTONIO Attending Unavailable LAUREN, KALEY Primary Care Unavailable Care Physician, No Primary Primary Care Physicia n Unavailable Provider, Ed Physician Attending Physician Unava ilable Provider, Ed Physician Emergency Department Phys ician Unavailable Provider, Ed Physician Attending Unavailab le Care Physician, No Primary Primary Care Unava ilable Allergies Allergy Classification Reported Allergen(s) Allergy Type Date of Onset Reaction(s) Facility (11 sources) Latex; Translations: [LATEX] Propensity to adverse reactions to drug 9 [facility] (1 source) Latex Drug allergy (disorder) 5 [facility] Repository Medications Current Medications Medication Drug Class(es) Dates Sig (Normalized) Sig (Original) acetaminophen 500 mg oral tablet (3 sources) Start: 08-20-2018 take 2 tablets by mouth every eight hours as needed for pain Start: 08-20-2018 take 1000 mg by mout h every eight hours Acetaminophen Active 1000 MG PO Q8H August 20, 2018 12:00am ciprofloxacin 500 mg oral tablet (1 source) Quinolone Antimicrobial Start: 04-01-2021 End: 04-08-2021 take 1 tablet by mouth twice daily ciprofloxacin (CIPRO) 500 MG tablet Take 1 tablet by mouth 2 times daily for 7 days 14 tablet 0 04/01/2021 04/08/2021 Active docusate sodium 50 mg / sennosides, nursing home 8.6 mg oral tablet (3 sources) Start: 08-20-2018 Start: 08-20-2018 take 1 tablet by arun th once daily Sennosides-Docusate Sodium Active 1 TABLET PO DAILY August 20, 2018 12:00am ibuprofen 600 mg oral tablet (3 sources) Nonsteroidal Anti-inflammatory Drug Start: 08-20-2018 take 1 tablet by mouth every six hours as needed for pain omeprazole 20 mg delayed release oral capsule (1 source) Proton Pump Inhibitor Start: 04-01-2021 take 1 capsule by mouth once daily omeprazole (PRILOSEC) 20 MG delayed release capsule Take 1 capsule by mouth daily 30 capsule 0 04/01/2021 Active Vit,Jerman 68-Ugaw-Qqhej (Prenatabs Fa) 1 TABLET tablet (1 source) Start: 07-23-2018 take 1 tablet by mouth once daily Vit,Rjpq93-Prtq-X olic (Prenatabs Fa) 1 TABLET tablet (2 sources) Start: 07-23-2018 take 1 tablet by mouth once daily Vit,Vswl52-Oasl- Folic (Prenatabs Fa) 1 TABLET tablet Active 1 TABLET PO DAILY July 23, 2018 12:00am Start: 07-23-2018 take 1 tablet by arun th once daily Vit,Yglg04-Xajn-Fhwzy (Prenatab s Fa) 1 TABLET tablet Active [...] Active oxyCODONE hydrochloride 5 mg oral tablet (3 sources) Opioid Agonist Start: 08-20-2018 End: 08-27-2018 take 5-10 mg by mouth every four hours as needed for pain Oxycodone 5 MG tablet Discontinued 5 - 10 mg PO EVERY 4 HOURS NEEDED as needed for Mod-Severe Pain (4-10/10) 10 7 0 August 20, 2018 August 26, 2018 12:00am August 27, 2018 12:10am Postoperative pain Other acute postprocedural pain Danwbemj-Lg-Xpn-Fe-F A ( VITAMIN) tab (2 sources) End: 03-28-2024 take 1 tablet by mouth once Pnmfdtzk-Wi-Yxd-Fe-FA ( VITAMIN) tab Take 1 tablet by mouth. 03/28/2024 Discontinued (Course of therapy completed) take 1 tablet by mouth once Pren atal Lkstfnah-Op-Uso-Fe-FA ( VITAMIN) tab Take 1 tablet by [...] Classification Problem Date Documented Da te Episodic/Chronic Abdominal pain (11 sources) Right upper quadrant pain; Translations: [Right upper quadrant pain] Onset: 03-28-2024 Episodic Anxiety disorders (2 sources) Anxiety disorder, unspecified; Translations: [Anxiety disorder, unspecified] Onset: 08-22-2017 Chronic Endometriosis (3 sources) Endometriosis (clinical); Translations: [Endometriosis, unspecified] 03-28-2024 Chronic Gastritis and duodenitis (1 source) Acute superficial gastritis; Translations: [Acute gastritis without bleeding] Episodic Menstrual disorders (3 sources) Dysmenorrhea; Translations: [Dysmenorrhea, unspecified] Onset: 09-04-2024 03-28-2024 Chronic Nausea and vomiting (1 source) Nausea with vomiting, unspecified; Translations: [Nausea and vomiting, unspecified vomiting type] Onset: 11-08-2024 Episodic Nonspecific chest pain (4 sources) Other [...] swelling, mass and lump, trunk] 03-28-2024 Episodic Urinary tract infections (1 source) Acute cystitis; Translations: [Acute cystitis without hematuria] Episodic Past or Other Problems Problem Classification Problem Date Documented Date Episodic/Chronic Adjustment disorders (5 sources) Grief finding; Translations: [Adjustment disorder with depressed mood] Onset: 11-17-2017 Resolved: 03-28-2024 11-17-2017 Chronic Liveborn (6 sources) Born by section; Translations: [Single liveborn , delivered by ] Onset: 07-16-2015 Resolved: 03-28-2024 [...] Test Name Value Interpretation Reference Range Facility [facility] 11-08-2024 [facility] ID: [id number] Author: JAIME KUMAR CT Service: Radiology Author Type: Technologist Type: [facility] Filed: 11/08/2024 16:34 Note Text: Radiology Service Progress Note DATE OF SERVICE: November 08, 2024 TIME: 4:34 PM PATIENT IDENTITY VERIFICATION COMPLETED USING TWO (2) STANDARD IDENTIFIERS: Name and Date of confirmed by patient verbally. FALL SCREENING: Has the patient had 2 falls in the last year or 1 fall with injury or currently using an Ambulatory Assistive Device (Walker, Cane, Wheelchair, Crutches, etc.)? No PATIENT GENDER DATA: Assigned female at . status: : No status: NO. PATIENT RELEVANT IMPLANT DATA REVIEWED: Not Applicable PATIENT PRESENTS WITH AN IMPLANTABLE OR ATTACHED BAKERY WORKER: No ALLERGIES: Reviewed and unchanged CONTRAST ALLERGY: NO. EXAM: CT -CONTRAST INDUCED NEPHROPATHY RISK FACTORS: Not applicable CREATININE: Creatinine Date Value Ref Range Status 11/08/2024 0.60 0.58 - 0.96 mg/dL Final 03/29/2018 0.53 0.51 - 0.95 mg/dL Final 03/11/2017 0.83 0.51 - 0.95 mg/dL Final Estimated Glomerular Filtration Rate Date Value Ref Range Status 11/08/2024 122 >=60 mL/min/1.73m? Final Comment: Estimated Glomerular Filtration Rate (eGFR) is calculated using the 2020 CKD-EPI creatinine equation. This equation utilizes serum creatinine, sex, and age as parameters. The creatinine assay has traceable calibration to isotope dilution-mass spectrometry. Refer to KDIGO guidelines for clinical interpretation. In patients with unstable renal function, e.g. those with acute kidney injury, the eGFR may not accurately reflect actual GFR. P.O.C.T. RESULTS: N/A November 08, 2024 TREATMENT: N/A PERIPHERAL IV DATA: Inpatient - refer to LDA documentation RADIOLOGY DEPARTMENT: CT; Exam(s) Completed: Abdomen/Pelvis . Anesthesia: No SIGNATURE: AZAEL Majano PATIENT NAME: Dat Higgins DATE: November 08, 2024 TIME: 4:34 PM Normal [facility] CBC W Auto Differential pane l (Bld)on 11-08-2024 Basophils (Bld) [#/Vol] 0.03 10*3/uL Normal <0.11 [facility] Comment on above: Order Comment: Speci men Type: BLOOD SPECIMEN Ordering Facility: [facility] Address: [address] [place] [address] Performed By: #### 5 7021-8 #### [facility] CLIA [id number] [address] [place] Basophils/100 WBC (Bld) 0.4 % Normal [facility] Comment on above: Order Comment: Speci men Type: BLOOD SPECIMEN Ordering Facility: [facility] Address: [address] [place] [address] Performed By: #### 5 7021-8 #### [facility] CLIA [id number] [address] [place] [id number] [place] Differential cell count method Nom (Bld) Auto Normal [facility] Comment on above: Order Comment: Speci men Type: BLOOD SPECIMEN Ordering Facility: [facility] Address: [address] [place] [address] Performed By: #### 5 7021-8 #### [facility] CLIA [id number] [address] [place] [address] [place] Eosinophils (Bld) [#/Vol] 0.07 10*3/uL Normal <0.46 [facility] Comment on above: Order Comment: Speci men Type: BLOOD SPECIMEN Ordering Facility: [facility] Address: [address] [place] [address] Performed By: #### 5 7021-8 #### [facility] CLIA [id number] [address] [place] Eosinophils/100 WBC (Bld) 0.9 % Normal [facility] Comment on above: Order Comment: Speci men Type: BLOOD SPECIMEN Ordering Facility: [facility] Address: [address] [place] [address] Performed By: #### 5 7021-8 #### [facility] CLIA [id number] [address] [place] Erythrocyte distribution width (RBC) [Ratio] 15.1 % High 11.5-15.0 [facility] Comment on above: Order Comment: Speci men Type: BLOOD SPECIMEN Ordering Facility: [facility] Address: [address] [place] [address] Performed By: #### 5 7021-8 #### [facility] CLIA [id number] [address] [place] Hematocrit (Bld) [Volume fraction] 40.2 % Normal 36.0-46.0 [facility] Comment on above: Order Comment: Speci men Type: BLOOD SPECIMEN Ordering Facility: [facility] Address: [address] [place] [address] Performed By: #### 5 7021-8 #### [facility] CLIA [id number] [address] [id number] [place] Hemoglobin (Bld) [Mass/Vol] 12.7 g/dL Normal 11.5-15.5 [facility] Comment on above: Order Comment: Speci men Type: BLOOD SPECIMEN Ordering Facility: [facility] Address: [address] [place] [address] Performed By: #### 5 7021-8 #### [facility] CLIA [id number] [address] [place] [address] [place] Immature granulocytes (Bld) [#/Vol] 10*3/uL Normal <0.10 [facility] Comment on above: Order Comment: Speci men Type: BLOOD SPECIMEN Ordering Facility: [facility] Address: [address] [place] [address] Performed By: #### 5 7021-8 #### [facility] CLIA [id number] [address] [place] [address] [place] Immature granulocytes/100 WBC (Bld) 0.1 % Normal [facility] Comment on above: Order Comment: Speci men Type: BLOOD SPECIMEN Ordering Facility: [facility] Address: [address] [place] [address] Performed By: #### 5 7021-8 #### [facility] CLIA [id number] [address] [place] [address] [place] Lymphocytes (Bld) [#/Vol] 2.21 10*3/uL Normal 1.00-4.00 [facility] Comment on above: Order Comment: Speci men Type: BLOOD SPECIMEN Ordering Facility: [facility] Address: [address] [place] [address] Performed By: #### 5 7021-8 #### [facility] CLIA [id number] [address] [place] [address] [place] Lymphocytes/100 WBC (Bld) 29.7 % Normal [facility] Comment on above: Order Comment: Speci men Type: BLOOD SPECIMEN Ordering Facility: [facility] Address: [address] [place] [address] Performed By: #### 5 7021-8 #### [facility] CLIA [id number] [address] [place] [address] [facility] MCH (RBC) [Entitic mass] 25.2 pg Low 26.0-34.0 [facility] Comment on above: Order Comment: Speci men Type: BLOOD SPECIMEN Ordering Facility: [facility] Address: [address] [place] [address] Performed By: #### 5 7021-8 #### [facility] CLIA [id number] [address] [place], [place] [address] [place] [address] [place] MCHC (RBC) [Mass/Vol] 31.6 g/dL Normal 30.5-36.0 [facility] Comment on above: Order Comment: Speci men Type: BLOOD SPECIMEN Ordering Facility: [facility] Address: [address] [place] [address] Performed By: #### 5 7021-8 #### [facility] CLIA [id number] [address] [place] [address] OF [facility] MCV (RBC) [Entitic vol] 79.8 fL Low 80.0-100.0 [facility] Comment on above: Order Comment: Speci men Type: BLOOD SPECIMEN Ordering Facility: [facility] Address: [address] [place] [address] Performed By: #### 5 7021-8 #### [facility] CLIA [id number] [address] [place] [address] [place] Monocytes (Bld) [#/Vol] 0.56 10*3/uL Normal <0.87 [facility] Comment on above: Order Comment: Speci men Type: BLOOD SPECIMEN Ordering Facility: [facility] Address: [address] [place] [address] Performed By: #### 5 7021-8 #### [facility] CLIA [id number] [address] Monocytes/100 WBC (Bld) 7.5 % Normal [facility] Comment on above: Order Comment: Speci men Type: BLOOD SPECIMEN Ordering Facility: [facility] Address: [address] [place] [address] Performed By: #### 5 7021-8 #### [facility] CLIA [id number] [address] [place] [address] [place] Neutrophils (Bld) [#/Vol] 4.55 10*3/uL Normal 1.45-7.50 [facility] Comment on above: Order Comment: Speci men Type: BLOOD SPECIMEN Ordering Facility: [facility] Address: [address] [place] [address] Performed By: #### 5 7021-8 #### [facility] CLIA [id number] [address] [place] [address] [place] Neutrophils/100 WBC (Bld) 61.4 % Normal [facility] Comment on above: Order Comment: Speci men Type: BLOOD SPECIMEN Ordering Facility: [facility] Address: [address] [place] [address] Performed By: #### 5 7021-8 #### [facility] CLIA [id number] [address] [place] [address] [place] Nucleated RBC (Bld) [#/Vol] Normal [facility] Comment on above: Order Comment: Speci men Type: BLOOD SPECIMEN Ordering Facility: [facility] Address: [address] [place] [address] Performed By: #### 5 7021-8 #### [facility] CLIA [id number] [address] [place] [address] [place] Nucleated RBC/100 WBC (Bld) [Ratio] Normal [facility] Comment on above: Order Comment: Speci men Type: BLOOD SPECIMEN Ordering Facility: [facility] Address: [address] [place] [address] Performed By: #### 5 7021-8 #### [facility] CLIA [id number] [address] [place] [address] [place] Platelet mean volume (Bld) [Entitic vol] 8.9 fL Low 9.0-12.7 [facility] Comment on above: Order Comment: Speci men Type: BLOOD SPECIMEN Ordering Facility: [facility] Address: [address] [place] [address] Performed By: #### 5 7021-8 #### [facility] CLIA [id number] [address] [place] [address] [facility] Platelets (Bld) [#/Vol] 318 10*3/uL Normal 150-400 [facility] Comment on above: Order Comment: Speci men Type: BLOOD SPECIMEN Ordering Facility: [facility] Address: [address] [place] [address] Performed By: #### 5 7021-8 #### [facility] CLIA [id number] [address] [place] [address] RBC (Bld) [#/Vol] 5.04 10*6/uL Normal 3.90-5.20 [facility] Comment on above: Order Comment: Speci men Type: BLOOD SPECIMEN Ordering Facility: [facility] Address: [address] [place] [address] Performed By: #### 5 7021-8 #### [facility] CLIA [id number] [address] [place] [address] WBC (Bld) [#/Vol] 7.43 10*3/uL Normal 3.70-11.00 [facility] Comment on above: Order Comment: Speci men Type: BLOOD SPECIMEN Ordering Facility: [facility] Address: [address] [place] [address] Performed By: #### 5 7021-8 #### [facility] CLIA [id number] [address] OF [facility] CT ABD/PEL W IVCONon 025 CT ABD/PEL W IVCON * * *Final Report* * * DATE OF EXAM: Nov 08 2024 4:33PM [facility] 0530 - CT ABD/PEL W IVCON / PROCEDURE REASON: Abdominal pain, acute, nonlocalized * * * * Physician Interpretation * * * * EXAMINATION: CT ABDOMEN AND PELVIS WITH IV CONTRAST CLINICAL HISTORY: Right-sided abdominal pain TECHNIQUE: CT of the abdomen and pelvis was performed using standard technique, scanning from just above the dome of the diaphragm to the symphysis pubis. MQ: CTAP_3 Contrast: IV: 100 ml of Omnipaque 300 : ml of CT Radiation dose: Integrated Dose-length product (DLP) for this visit = 1092.53 mGy*cm. CT Dose Reduction Employed: Automated exposure control(AEC) and iterative recon COMPARISON: Same day abdominal ultrasound, pelvic ultrasound 01/05/2024 RESULT: Liver: No mass. Biliary: No bile duct dilation. Gallbladder is unremarkable. Spleen: No mass. No splenomegaly. Pancreas: No mass or duct dilation. Adrenals: No mass. Kidneys: No hydronephrosis. GI tract: No dilation or wall thickening. Appendix is not inflamed. Lymph nodes: No abdominal or pelvic lymphadenopathy. Mesentery/Peritoneum : No ascites or mass. Retroperitoneum: No mass. Vasculature: Aorta is nonaneurysmal. Pelvis: No mass, ascites or fluid collection. Bones/Soft Tissues: No acute osseous findings. Lower thorax: Noncontributory. Localizer images: No additional findings. IMPRESSION: No acute findings. Assistant Refinery Operator: PSCB Transcribe Date/Time: Nov 08 2024 5:14P Dictated by : LONA ALTAMIRANO MD This examination was interpreted and the report reviewed and electronically signed by: LONA ALTAMIRANO MD on Nov 08 2024 5:18PM EST [id number] Normal [facility] Comprehensive metabolic 2000 panelon 11-08-2024 Albumin [Mass/Vol] 4.4 g/dL Normal 3.9-4.9 [facility] Comment on above: Order Comment: Jesus bob Type: BLOOD SPECIMEN Ordering Facility: [facility] Address: [address] [place] [address] Performed By: #### 2 4323-8, 3040-3 #### [facility] CLIA [id number] [address] [place] [address] [place] ALP [Catalytic activity/Vol] 89 U/L Normal 34-123 [facility] Comment on above: Order Comment: Speci men Type: BLOOD SPECIMEN Ordering Facility: [facility] Address: [address] [address] Performed By: #### 2 4323-8, 3040-3 #### [facility] CLIA [id number] [address] [place] [address] [place] ALT With P-5'-P [Catalytic activity/Vol] 25 U/L Normal 7-38 [facility] Comment on above: Order Comment: Speci men Type: BLOOD SPECIMEN Ordering Facility: [facility] Address: [address] [place], [place] [address] Performed By: #### 2 4323-8, 3040-3 #### [facility] CLIA [id number] [address] [place] [address] [place] Anion gap [Moles/Vol] 12 mmol/L Normal 8-15 [facility] Comment on above: Order Comment: Speci men Type: BLOOD SPECIMEN Ordering Facility: [facility] Address: [address] [place] [address] Performed By: #### 2 4323-8, 3040-3 #### [facility] CLIA [id number] [address] [place] [address] [facility] [place] AST With P-5'-P [Catalytic activity/Vol] 20 U/L Normal 13-35 [facility] Comment on above: Order Comment: Speci men Type: BLOOD SPECIMEN Ordering Facility: [facility] Address: [address] [place] [address] Performed By: #### 2 4323-8, 3040-3 #### [facility] CLIA [id number] [address] [place] [address] [place] Bilirubin [Mass/Vol] 0.3 mg/dL Normal 0.2-1.3 [facility] Comment on above: Order Comment: Speci men Type: BLOOD SPECIMEN Ordering Facility: [facility] Address: [address] [place] [address] Performed By: #### 2 4323-8, 3040-3 #### [facility] CLIA [id number] [address] [place] [address] [place] Calcium [Mass/Vol] 9.5 mg/dL Normal 8.5-10.2 [facility] Comment on above: Order Comment: Speci men Type: BLOOD SPECIMEN Ordering Facility: [facility] Address: [address] [place] [address] Performed By: #### 2 4323-8, 3040-3 #### [facility] CLIA [id number] [address] [place] [address] [place] Chloride [Moles/Vol] 103 mmol/L Normal 98-107 [facility] Comment on above: Order Comment: Speci men Type: BLOOD SPECIMEN Ordering Facility: [facility] Address: [address] [place] [address] Performed By: #### 2 4323-8, 3040-3 #### [facility] CLIA [id number] [address] [place] [address] [place] CO2 [Moles/Vol] 22 mmol/L Normal 22-30 [facility] Comment on above: Order Comment: Speci men Type: BLOOD SPECIMEN Ordering Facility: [facility] Address: [address] [place] [address] Performed By: #### 2 4323-8, 3040-3 #### [facility] CLIA [id number] [address] [place] [address] [place] Creatinine [Mass/Vol] 0.60 mg/dL Normal 0.58-0.96 [facility] Comment on above: Order Comment: Speci men Type: BLOOD SPECIMEN Ordering Facility: [facility] Address: [address] [place] [address] Performed By: #### 2 4323-8, 3040-3 #### [facility] CLIA [id number] [address] [place] [address] [place] eGFRcr SerPlBld CKD-EPI 2020 122 mL/min/1.73m??? Normal >=60 [facility] Comment on above: Order Comment: Jesus bob Type: BLOOD SPECIMEN Ordering Facility: [facility] Address: [address] [place] [address] Result Comment: Sagrario mated Glomerular Filtration Rate (eGFR) is calculated using the 2020 CKD-EPI creatinine equation. This equation utilizes serum creatinine, sex, and age as parameters. The creatinine assay has traceable calibration to isotope dilution-mass spectrometry. Refer to KDIGO guidelines for clinical interpretation. In patients with unstable renal function, e.g. those with acute kidney injury, the eGFR may not accurately reflect actual GFR. Performed By: #### 2 4323-8, 0-3 #### [facility] CLIA [id number] [address] [place] [address] [place] Glucose [Mass/Vol] 95 mg/dL Normal 74-99 [facility] Comment on above: Order Comment: Jesus bob Type: BLOOD SPECIMEN Ordering Facility: [facility] Address: [address] [place] [address] Result Comment: The [place] [employer] (ADA) provides guidance for cutoff values for fasting glucose and random glucose. The ADA defines fasting as no caloric intake for at least 8 hours. Fasting plasma glucose results between 100 to 125 mg/dL indicate increased risk for diabetes (prediabetes). Fasting plasma glucose results greater than or equal to 126 mg/dL meet the criteria for diagnosis of diabetes. In the absence of unequivocal hyperglycemia, results should be confirmed by repeat testing. In a patient with classic symptoms of hyperglycemia or hyperglycemic crisis, random plasma glucose results greater than or equal to 200 mg/dL meet the criteria for diagnosis of diabetes. Reference: Standards of Medical Care in Diabetes 2016, [place] [employer]. Diabetes Care. 2016.39(Suppl 1). Performed By: #### 2 4323-8, 3040-3 #### [facility] CLIA [id number] [address] [place] [id number] [place] Potassium [Moles/Vol] 4.1 mmol/L Normal 3.7-5.1 [facility] Comment on above: Order Comment: Jesus bob Type: BLOOD SPECIMEN Ordering Facility: [facility] Address: [address] [place] [address] Performed By: #### 2 4323-8, 3040-3 #### [facility] CLIA [id number] [address] [place] [address] [place] Protein [Mass/Vol] 7.8 g/dL Normal 6.3-8.0 [facility] Comment on above: Order Comment: Speci men Type: BLOOD SPECIMEN Ordering Facility: [facility] Address: [address] [place] [address] Performed By: #### 2 4323-8, 3040-3 #### [facility] CLIA [id number] [address] [place] [address] [place] Sodium [Moles/Vol] 137 mmol/L Normal 136-144 [facility] Comment on above: Order Comment: Speci men Type: BLOOD SPECIMEN Ordering Facility: [facility] Address: [address] [place] [address] Performed By: #### 2 4323-8, 3040-3 #### [facility] CLIA [id number] [address] [place] [address] [place] Urea nitrogen [Mass/Vol] 12 mg/dL Normal 7-21 [facility] Comment on above: Order Comment: Speci men Type: BLOOD SPECIMEN Ordering Facility: [facility] Address: [address] [place] [address] Performed By: #### 2 4323-8, 3040-3 #### [facility] CLIA [id number] [address] [place] [address] [facility] [place] ED NOTEon 11-08-2024 ED NOTE HNO ID: [id number] Author: LONA LAZO RN Service: ? Author Type: Registered Nurse Type: ED Notes Filed: 11/08/2024 17:50 Note Text: Pt given discharge instructions, pt questions answered and pt denies any further questions at time of discharge. Pt ambulates out of dept with a steady gait. Pt has a ride home Normal [facility] ED NOTE HNO ID: [id number] Author: TAMRA SANTANA RN Service: Emergency Medicine Author Type: Registered Nurse Type: ED Notes Filed: 11/09/2024 09:46 Note Text: Emergency Services: ED Call Back Questionnaire SERVICE DATE: 11/08/2024 Are you feeling better? Yes Any questions about discharge instructions and follow-up care? No Were you able to make a follow up appointment? No, referred to appointment hotline Do you have any further questions? No Is there anything that we could have done differently to improve your ED visit? No SIGNATURE: Tamra Santana RN PATIENT NAME: Dat Higgins DATE: November 09, 2024 TIME: 9:46 AM [facility] ED NOTE HNO ID: [id number] Author: LONA LAZO RN Service: ? Author Type: Registered Nurse Type: ED Notes Filed: 11/08/2024 15:07 Note Text: Ultrasound completed at bedside [facility] ED NOTE HNO ID: [id number] Author: LONA LAZO RN Service: ? Author Type: Registered Nurse Type: ED Notes Filed: 11/08/2024 14:25 Note Text: Ruq abd pain for 2 days, pt reports n/v. Pt reports sudden onset during the night. Pt has not taken any otc meds. Pt is unusre if maybe she could be also. Recently stopped taking control and has not had a period for over 2 months. [facility] ED PROV NOTEon 11-08-2024 ED PROV NOTE HNO ID: [id number] Author: EFRAÍN ANTONIO MD Service: Emergency Medicine Author Type: Physician Type: ED Provider Notes Filed: 11/08/2024 19:54 Note Text: ED Provider Note Patient Name: Dat Higgins : 1990 SERVICE DATE: 11/08/24 History Patient presents with: Abdominal Pain 34-year-old female patient presents to the emergency department. Patient has a history of section. She states in 2019 when she was she had some type of gallbladder infection that was treated with antibiotics. She states she has not had any issues with her gallbladder since then. Reports abdominal pain in her right upper quadrant for the last 2 days. States she vomited with it the first night but not since. States it is worse when she stands up. Denies any chest pain or shortness of breath. States has been having normal bowel movements and urine. Denies any vaginal discharge or bleeding. Has not had a menstrual period and unsure how long because she is on constant control. PAST MEDICAL HISTORY Diagnosis Date - Benign gestational thrombocytopenia in third trimester (HCC) 05/26/2018 05/26/18: repeat CBC in 4 weeks. PLTS 125. Alisson Gee MD PAST SURGICAL HISTORY Procedure Laterality Date - DELIVERY ONLY 08/18/2018 RC/S low transverse - SECTION HX 07/2015 - PAST SURGICAL HISTORY OF 2007 fatty tumor between breasts removed FAMILY HISTORY Problem Relation Age of Onset - Thyroid Mother - Lung Cancer Mother - Hypertension Father - No Known Problems Sister - other ( at , unknown) Brother - Cancer Maternal Grandmother - Cancer Maternal Grandfather - Brain Cancer Paternal Grandmother - Cancer Paternal Grandfather - Blood Clots Paternal Grandfather - No Known Problems Daughter - No Known Problems Son - Breast Cancer No Family History - Ovarian cancer No Family History - Colon Cancer No Family History - Prostate Cancer No Family History Social History[1] ALLERGIES Allergen Reactions - Latex Rash Review of Systems Gastrointestinal: Positive for abdominal pain. Physical Exam Vitals [11/08/24 1423] BP Pulse Temp Temp src Resp SpO2 Weight Height 141/91 (!) 97 36.4 ?C (97.5 ?F) Temporal Art 18 99 % -- -- Physical Exam Vitals and nursing note reviewed. Constitutional: Appearance: She is well-developed. HENT: Head: Normocephalic and atraumatic. Nose: Nose normal. Eyes: Extraocular Movements: Extraocular movements intact. Cardiovascular: Heart sounds: Normal heart sounds. Pulmonary: Effort: No respiratory distress. Breath sounds: Normal breath sounds. Abdominal: General: Bowel sounds are normal. Palpations: Abdomen is soft. Tenderness: There is no abdominal tenderness. Comments: Her abdominal pain was only slightly reproduced by any type of palpation. She had mild tenderness periumbilical on the right and right upper quadrant. No guarding or rebound. No CVA tenderness Musculoskeletal: General: Normal range of motion. Cervical back: Neck supple. Skin: General: Skin is warm and dry. Neurological: Mental Status: She is alert and oriented to person, place, and time. Diagnostic Testing ED Labs Ordered and Reviewed COMPLETE BLOOD COUNT AND DIFFERENTIAL - Abnormal; Notable for the following components: Result Value Ref Range MCV 79.8 (*) 80.0 - 100.0 fL MCH 25.2 (*) 26.0 - 34.0 pg RDW-CV 15.1 (*) 11.5 - 15.0 % MPV 8.9 (*) 9.0 - 12.7 fL All other components within normal limits URINALYSIS (WITH MICROSCOPIC) WITH CULTURE IF INDICATED - Abnormal; Notable for the following components: Clarity Cloudy (*) Clear Specific [place], Ur >=1.030 (*) 1.005 - 1.030 Leuk Esterase 1+ (*) Negative WBC, Urine 6-10 /HPF (*) 0-5 /HPF Bacteria Few (*) None Seen /HPF All other components within normal limits HCG, QUALITATIVE, URINE - Normal COMPREHENSIVE METABOLIC PANEL - Normal LIPASE - Normal Procedures ED Course / Clinical Impression Clinical Impressions as of 11/08/241951 Abdominal pain, unspecified abdominal location Nausea and vomiting, unspecified vomiting type MDM / Disposition / Plan Patient presents complaining of abdominal pain. She points to her right upper quadrant region but there is really not much reproducibility with palpation. She did have minimal tenderness. She does have 6-10 white blood cells in her urine with moderate squamous epithelial cells and no dysuria. I think this is likely contaminant versus asymptomatic bacteria. She had no concerning laboratory abnormalities. Her test was negative. She had an ultrasound of her right upper quadrant that showed no gallstones or evidence of biliary obstruction. There was possibility of fatty liver. CT was then done of her abdomen pelvis which showed no acute findings. Patient's pain was treated she was feeling better. I am unsure the etiology of her pain at this time bu (more content not included)... Normal [facility] HCG Preg Ur Qlon 11-08-2024 HCG ( test) Ql (U) Negative Normal Negative [facility] Comment on above: Order Comment: Speci men Type: URINE SPECIMEN Ordering Facility: [facility] Address: [address], [place] [address] Result Comment: This test is intended to aid in the early detection of . Very dilute urine samples, as indicated by a low specific gravity, may not contain sales representative business courses levels of hCG. This test detects intact hCG only. This test does not reliably detect hCG degradation products, including free-beta subunit and beta-core fragment. Therefore, this test may show reduced reactivity in urine after 8 weeks gestation. A number of conditions other than , including trophoblastic disease and certain non-trophoblastic neoplasms cause elevated levels of hCG. As with any assay employing mouse antibodies, the possibility exists for interference by human anti-mouse antibodies (HAMA) in the specimen. The test provides a presumptive diagnosis for . Performed By: #### 2 106-3 #### [facility] CLIA [id number] [address] [place] [address] [place] Lipase SerPl-cCncon 11-09-19 25 Lipase [Catalytic activity/Vol] 38 U/L Normal 16-61 [facility] Comment on above: Order Comment: Speci men Type: BLOOD SPECIMEN Ordering Facility: [facility] Address: [address] [place] [address] Performed By: #### 2 4323-8, 3040-3 #### [facility] CLIA [id number] [address] [place] [address] [place] US ABD RIGHT UPPER QUADRANTo n 11-08-2024 US ABD RIGHT UPPER QUADRANT * * *Final Report* * * DATE OF EXAM: Nov 08 2024 3:24PM LDU 1032 - US ABD RIGHT UPPER QUADRANT / PROCEDURE REASON: RUQ pain, no fever, no elev WBC * * * * Physician Interpretation * * * * EXAM: Limited abdominal ultrasound. HISTORY: RUQ pain, no fever, no elev WBC TECHNIQUE: Limited abdominal sonogram was performed of the right upper quadrant structures. Images were stored in a permanent archive. COMPARISON: No prior ultrasound for comparison FINDINGS: The liver demonstrates diffuse increased echogenicity. The gallbladder is within normal limits. No gallstones. The gallbladder wall thickness is normal. The discharge door operator reports Gleason's sign was absent. The common bile duct diameter measures 5 mm. No hydronephrosis on the right. The visualized portions of the pancreas are unremarkable. IMPRESSION: 1. No gallstones or sonographic evidence of biliary obstruction. 2. Diffuse increased echogenicity of the liver favoring fatty infiltration. Assistant Refinery Operator: DUY Transcribe Date/Time: Nov 08 2024 3:36P Dictated by : BARRETT FAROOQ MD This examination was interpreted and the report reviewed and electronically signed by: BARRETT FAROQO MD on Nov 08 2024 3:40PM EST [id number] Normal [facility] Urinalysis complete panel (U )on 11-08-2024 Bacteria LM.HPF (Urine sed) [#/Area] Few Abnormal None Seen [facility] Comment on above: Order Comment: Speci men Type: URINE SPECIMEN Ordering Facility: [facility] Address: [address] [place] [address] Performed By: #### 2 4356-8 #### [facility] CLIA [id number] [address] [place] [address] [place] Bilirubin Ql (U) Negative Normal Negative [facility] Comment on above: Order Comment: Speci men Type: URINE SPECIMEN Ordering Facility: [facility] Address: [address] [place] [address] Performed By: #### 2 4356-8 #### [facility] CLIA [id number] [address] [place] [address] [place] Clarity (Unsp spec) Cloudy Abnormal Clear [facility] Comment on above: Order Comment: Speci men Type: URINE SPECIMEN Ordering Facility: [facility] Address: [address] [place] [address] Performed By: #### 2 4356-8 #### [facility] CLIA [id number] [address] [place] [address] [place] Color (U) Yellow Normal Yellow [facility] Comment on above: Order Comment: Speci men Type: URINE SPECIMEN Ordering Facility: [facility] Address: [address] [place] [address] Performed By: #### 2 4356-8 #### [facility] CLIA [id number] [address] [place] [address] [facility] Epithelial cells LM.HPF (Urine sed) [#/Area] Moderate Normal [facility] Comment on above: Order Comment: Speci men Type: URINE SPECIMEN Ordering Facility: [facility] Address: [address] [place] [address] Performed By: #### 2 4356-8 #### [facility] CLIA [id number] [address] [place] [address] [facility] [place] Glucose Test strip (U) [Mass/Vol] Negative Normal Negative [facility] Comment on above: Order Comment: Speci men Type: URINE SPECIMEN Ordering Facility: [facility] Address: [address] [place] [address] Performed By: #### 2 4356-8 #### [facility] CLIA [id number] [address] [place] [address] [facility] Hemoglobin Ql (U) Negative Normal Negative [facility] Comment on above: Order Comment: Speci men Type: URINE SPECIMEN Ordering Facility: [facility] Address: [address] [place] [address] Performed By: #### 2 4356-8 #### [facility] CLIA [id number] [address] [place] [address] [place] Ketones Ql (U) Negative Normal Negative [facility] Comment on above: Order Comment: Speci men Type: URINE SPECIMEN Ordering Facility: [facility] Address: [address] [place] [address] Performed By: #### 2 4356-8 #### [facility] CLIA [id number] [address] [place] [address] [facility] [place] Leukocyte esterase Test strip Ql (U) 1+ Abnormal Negative [facility] Comment on above: Order Comment: Speci men Type: URINE SPECIMEN Ordering Facility: [facility] Address: [address] [place] [address] Performed By: #### 2 4356-8 #### [facility] CLIA [id number] [address] [place] [address] [place] Nitrite Ql (U) Negative Normal Negative [facility] Comment on above: Order Comment: Speci men Type: URINE SPECIMEN Ordering Facility: [facility] Address: [address] [place] [address] Performed By: #### 2 4356-8 #### [facility] CLIA [id number] [address] [place] [address] [place] pH (U) 5.5 [pH] Normal 5.0-8.0 [facility] Comment on above: Order Comment: Speci men Type: URINE SPECIMEN Ordering Facility: [facility] Address: [address] [place] [address] Performed By: #### 2 4356-8 #### [facility] CLIA [id number] [address] [place] [address] [place] Protein (U) [Mass/Vol] Negative Normal Negative [facility] Comment on above: Order Comment: Speci men Type: URINE SPECIMEN Ordering Facility: [facility] Address: [address] [place] [address] Performed By: #### 2 4356-8 #### [facility] CLIA [id number] [address] [place] [id number] [place] RBC LM.HPF (Urine sed) [#/Area] 0-3 /HPF Normal 0-3 /HPF [facility] Comment on above: Order Comment: Speci men Type: URINE SPECIMEN Ordering Facility: [facility] Address: [address] [place] [address] Performed By: #### 2 4356-8 #### [facility] CLIA [id number] [address] [place] [id number] [place] Specific gravity (U) [Rel density] >=1.030 High 1.005-1.030 [facility] Comment on above: Order Comment: Speci men Type: URINE SPECIMEN Ordering Facility: [facility] Address: [address] [place] [address] Performed By: #### 2 4356-8 #### [facility] CLIA [id number] [address] [place] [address] [place] Urobilinogen Ql (U) 0.2 EU/dL Normal 0.2-1.0 EU/dL [facility] Comment on above: Order Comment: Speci men Type: URINE SPECIMEN Ordering Facility: [facility] Address: [address] [place] [address] Performed By: #### 2 4356-8 #### [facility] CLIA [id number] [address] [place] [address] [place] WBC LM.HPF (Urine sed) [#/Area] 6-10 /HPF Abnormal 0-5 /HPF [facility] Comment on above: Order Comment: Speci men Type: URINE SPECIMEN Ordering Facility: [facility] Address: [address] [place] [address] Performed By: #### 2 4356-8 #### [facility] CLIA [id number] [address] [place] Absolute lymphocyte countOrd ered By: ED PROVIDER on 11-07-2024 Lymphocytes Auto (Unsp spec) [#/Vol] 2.63 10*3/uL 0.83-4.51 [facility] Absolute neutrophil countOrd ered By: ED PROVIDER on 11-07-2024 Neutrophils (Bld) [#/Vol] 5.5 10*3/uL 2.0-7.7 [facility] Anion gap in Serum or Plasma Ordered By: ED PROVIDER on 11-07-2024 Anion gap [Moles/Vol] 11 mmol/L 5-15 [facility] Automated lymphocyte count a s percentage of total leukocytesOrdered By: ED PROVIDER on 11-07-2024 Lymphocytes/100 WBC Auto (Unsp spec) 29.3 % 19-41 [facility] BUN/creatinine ratioOrdered By: ED PROVIDER on 11-07-2024 Urea nitrogen/Creatinine [Mass ratio] 19.6 mg/mg 10-20 [facility] Basophil percentageOrdered B y: ED PROVIDER on 11-07-2024 Basophils/100 WBC (Bld) 0.4 % 0-[address] [facility] Bilirubin Test strip Ql (U)O rdered By: ED PROVIDER on 11-07-2024 Bilirubin Ql (U) Negative Negative [facility] Bilirubin, totalOrdered By: ED PROVIDER on 11-07-2024 Bilirubin [Mass/Vol] 0.25 mg/dL 0.00-1.30 [facility] CBC W/Diff, Automatedon 09-2 -2024 Absolute Lymph 2.63 X10 3/uL Normal 0.83-4.51 [facility] Comment on above: Performed By: #### L 700.6800, L100.0100, L501.2450, L500.4050 #### [facility] [address] [place], [address] Absolute Neut 5.5 X10 3/uL Normal 2.0-7.7 [facility] Comment on above: Performed By: #### L 700.6800, L100.0100, L501.2450, L500.4050 #### [facility] [address] [place], [address] Basophils/100 WBC (Bld) 0.4 % Normal 0-[address] [facility] Comment on above: Performed By: #### L 700.6800, L100.0100, L501.2450, L500.4050 #### [facility] [address] [place], [address] Eosinophils/100 WBC (Bld) 1.2 % Normal 0-5 [facility] Comment on above: Performed By: #### L 700.6800, L100.0100, L501.2450, L500.4050 #### [facility] [address] [place], [address] Erythrocyte distribution width (RBC) [Ratio] 15.2 % High 11.6-14.6 [facility] Comment on above: Performed By: #### L 700.6800, L100.0100, L501.2450, L500.4050 #### [facility] [address] [place], [address] Hematocrit (Bld) [Volume fraction] 41.7 % Normal 37-47 [facility] Comment on above: Performed By: #### L 700.6800, L100.0100, L501.2450, L500.4050 #### [facility] [address] [place], [address] Hemoglobin (Bld) [Mass/Vol] 13.5 g/dL Normal 12.0-15.0 [facility] Comment on above: Performed By: #### L 700.6800, L100.0100, L501.2450, L500.4050 #### [facility] [address] [place], [address] IG% 0.400 Normal 0.0-0.9 [facility] Comment on above: Result Comment: IG% - Immature Granulocytes (promyelocytes, myelocytes and metamyelocytes) > 1% indicates that a LEFT SHIFT is Present. Performed By: #### L 700.6800, L100.0100, L501.2450, L500.4050 #### [facility] [address] [place], [address] Lymphocytes/100 WBC (Bld) 29.3 % Normal 19-41 [facility] Comment on above: Performed By: #### L 700.6800, L100.0100, L501.2450, L500.4050 #### [facility] [address] [place], [address] MCH (RBC) [Entitic mass] 25.8 pg Low 27.0-32.0 [facility] Comment on above: Performed By: #### L 700.6800, L100.0100, L501.2450, L500.4050 #### [facility] [address] [place], [address] MCHC (RBC) [Mass/Vol] 32.4 g/dL Normal 32-36 [facility] Comment on above: Performed By: #### L 700.6800, L100.0100, L501.2450, L500.4050 #### [facility] [address] [place], [address] MCV (RBC) [Entitic vol] 79.6 fL Low 81-[address] [facility] Comment on above: Performed By: #### L 700.6800, L100.0100, L501.2450, L500.4050 #### [facility] [address] [place], [address] Monocytes/100 WBC (Bld) 7.0 % Normal 0-10 [facility] Comment on above: Performed By: #### L 700.6800, L100.0100, L501.2450, L500.4050 #### [facility] [address] [place], [address] Neutrophils/100 WBC (Bld) 61.7 % Normal 47-70 [facility] Comment on above: Performed By: #### L 700.6800, L100.0100, L501.2450, L500.4050 #### [facility] [address] [place], [address] Nucleated RBC (Bld) [#/Vol] 0 10*3/uL Normal 0-5 [facility] Comment on above: Performed By: #### L 700.6800, L100.0100, L501.2450, L500.4050 #### [facility] [address] [place], [address] Platelet mean volume (Bld) [Entitic vol] 9.5 fL Normal 6.2-12.0 [facility] Comment on above: Performed By: #### L 700.6800, L100.0100, L501.2450, L500.4050 #### [facility] [address] [place], [address] Platelets (Bld) [#/Vol] 336 10*3/uL Normal 150-450 [facility] Comment on above: Performed By: #### L 700.6800, L100.0100, L501.2450, L500.4050 #### [facility] [address] [place], [address] RBC (Bld) [#/Vol] 5.24 10*6/uL Normal 4.2-5.4 [facility] Comment on above: Performed By: #### L 700.6800, L100.0100, L501.2450, L500.4050 #### [facility] [address] [place], [address] RDW SD 43.5 fl Normal 35.1-43.9 [facility] Comment on above: Performed By: #### L 700.6800, L100.0100, L501.2450, L500.4050 #### [facility] [address] [place], [address] WBC (Bld) [#/Vol] 9.0 10*3/uL Normal 4.4-11.0 [facility] Comment on above: Performed By: #### L 700.6800, L100.0100, L501.2450, L500.4050 #### [facility] [address] [place], [address] Carbon dioxide, total [Moles /volume] in Central venous bloodOrdered By: ED PROVIDER on 11-07-2024 CO2 [Moles/Vol] 22.6 mmol/L 21.0-32.0 [facility] Chloride assayOrdered By: ED PROVIDER on 11-07-2024 Chloride [Moles/Vol] 103 mmol/L 98-108 [facility] Comprehensive Metabolic Prof ilon 11-07-2024 Albumin [Mass/Vol] 4.8 g/dL Normal 3.5-5.0 [facility] Comment on above: Performed By: #### L 700.6800, L100.0100, L501.2450, L500.4050 #### [facility] [address] [place], [address] Albumin/Globulin [Mass ratio] 1.4 {ratio} Normal 0.9-2.4 [facility] Comment on above: Performed By: #### L 700.6800, L100.0100, L501.2450, L500.4050 #### [facility] [address] [place], [address] ALK PHOS 91 U/L Normal 35-104 [facility] Comment on above: Performed By: #### L 700.6800, L100.0100, L501.2450, L500.4050 #### [facility] [address] [place], [address] ALT [Catalytic activity/Vol] 24 U/L Normal <=34 [facility] Comment on above: Performed By: #### L 700.6800, L100.0100, L501.2450, L500.4050 #### [facility] [address] [place], [address] AST [Catalytic activity/Vol] 22 U/L Normal <=31 [facility] Comment on above: Performed By: #### L 700.6800, L100.0100, L501.2450, L500.4050 #### [facility] [address] [place], [address] Bilirubin [Mass/Vol] 0.25 mg/dL Normal 0.00-1.30 [facility] Comment on above: Performed By: #### L 700.6800, L100.0100, L501.2450, L500.4050 #### [facility] [address] [place], [address] BUN/CRE 19.6 RATIO Normal 10-20 [facility] Comment on above: Performed By: #### L 700.6800, L100.0100, L501.2450, L500.4050 #### [facility] [address] [place], [address] Calcium [Mass/Vol] 9.9 mg/dL Normal 7.6-11.0 [facility] Comment on above: Performed By: #### L 700.6800, L100.0100, L501.2450, L500.4050 #### [facility] [address] [place], [address] Chloride [Moles/Vol] 103 mmol/L Normal 98-108 [facility] Comment on above: Performed By: #### L 700.6800, L100.0100, L501.2450, L500.4050 #### [facility] [address] [place], [address] CO2 [Moles/Vol] 22.6 mmol/L Normal 21.0-32.0 [facility] Comment on above: Performed By: #### L 700.6800, L100.0100, L501.2450, L500.4050 #### [facility] [address] [place], [address] Creatinine [Mass/Vol] 0.58 mg/dL Low 0.70-1.20 [facility] Comment on above: Performed By: #### L 700.6800, L100.0100, L501.2450, L500.4050 #### [facility] [address] [place], [address] ECRCL 153.70 ml/min Normal 50-250 [facility] Comment on above: Performed By: #### L 700.6800, L100.0100, L501.2450, L500.4050 #### [facility] [address] [place], [address] GAP 11 Normal 5-15 [facility] Comment on above: Performed By: #### L 700.6800, L100.0100, L501.2450, L500.4050 #### [facility] [address] [place], [address] GFR/1.73 sq M.predicted among non-blacks MDRD (S/P/Bld) [Vol rate/Area] 122 mL/min/{1.73_m2} Normal >60 [facility] Comment on above: Result Comment: mL/m in/1.73m2 CKD-EPI Creatinine Equation (2020) Performed By: #### L 700.6800, L100.0100, L501.2450, L500.4050 #### [facility] [address] [place], [address] Globulin (S) [Mass/Vol] 3.5 g/dL Normal 2.2-4.2 [facility] Comment on above: Performed By: #### L 700.6800, L100.0100, L501.2450, L500.4050 #### [facility] [address] [place], [address] Glucose [Mass/Vol] 91 mg/dL Normal 70-99 [facility] Comment on above: Performed By: #### L 700.6800, L100.0100, L501.2450, L500.4050 #### [facility] [address] [place], [address] Potassium [Moles/Vol] 4.4 mmol/L Normal 3.3-5.1 [facility] Comment on above: Performed By: #### L 700.6800, L100.0100, L501.2450, L500.4050 #### [facility] [address] [place], [address] Sodium [Moles/Vol] 137 mmol/L Normal 133-145 [facility] Comment on above: Performed By: #### L 700.6800, L100.0100, L501.2450, L500.4050 #### [facility] [address] [place], [address] T PROT 8.3 g/dL Normal 5.9-8.4 [facility] Comment on above: Performed By: #### L 700.6800, L100.0100, L501.2450, L500.4050 #### [facility] [address] [place], [address] Urea nitrogen [Mass/Vol] 11 mg/dL Normal 4-19 [facility] Comment on above: Performed By: #### L 700.6800, L100.0100, L501.2450, L500.4050 #### [facility] [address] [place], [address] Eosinophil percentageOrdered By: ED PROVIDER on 11-07-2024 Eosinophils/100 WBC (Bld) 1.2 % 0-5 [facility] Erythrocyte distribution wid th ratioOrdered By: ED PROVIDER on 11-07-2024 Erythrocyte distribution width (RBC) [Ratio] 15.2 % High 11.6-14.6 [facility] Erythrocyte distribution wid th standard deviationOrdered By: ED PROVIDER on 11-07-2024 Erythrocyte distribution width (RBC) [Ratio] 43.5 fl 35.1-43.9 [facility] Glomerular filtration rate ( GFR) estimation/1.73 sq m using serum, plasma, or whole bOrdered By: ED PROVIDER on 11-07-2024 GFR/1.73 sq M.predicted among non-blacks MDRD (S/P/Bld) [Vol rate/Area] 122 mL/min/{1.73_m2} >60 [facility] Comment on above: mL/min/1.73m2 CKD-EP I Creatinine Equation (2020) Hematocrit Auto (Bld) [Volum e fraction]Ordered By: ED PROVIDER on 11-07-2024 Hematocrit (Bld) [Volume fraction] 41.7 % 37-47 [facility] Hemoglobin measurementOrdere d By: ED PROVIDER on 11-07-2024 Hemoglobin (Bld) [Mass/Vol] 13.5 g/dL 12.0-15.0 [facility] Immature granulocytes/100 WB C Auto (Bld)Ordered By: ED PROVIDER on 11-07-2024 Immature granulocytes/100 WBC (Bld) 0.400 % 0.0-0.9 [facility] Comment on above: IG% - Immature Granu locytes (promyelocytes, myelocytes and metamyelocytes) > 1% indicates that a LEFT SHIFT is Present. Ketones Test strip Ql (U)Ord ered By: ED PROVIDER on 11-07-2024 Ketones Ql (U) Negative Negative [facility] - Chemistry and C hemistry - challengeOrdered By: ED PROVIDER on 11-07-2024 AST [Catalytic activity/Vol] 22 U/L <32 [facility] Lipaseon 11-07-2024 Lipase [Catalytic activity/Vol] 34 U/L Normal 13-75 [facility] Comment on above: Result Comment: Eugenia grijalva note: LIPASE revised reference range effective 22. New Lipase methodology. Expected to produce lower values than the previous assay method. NEW Reference Range: 13 - 75 U/L Performed By: #### L 700.6800, L100.0100, L501.2450, L500.4050 #### [facility] [address] [place] [address], [id number] Lipase measurementOrdered By : ED PROVIDER on 11-07-2024 Lipase [Catalytic activity/Vol] 34 U/L 13-75 [facility] Comment on above: Please note:LIPASE r evised reference range effective 22. New Lipase methodology. Expected to produce lower values than the previous assay method. NEW Reference Range: 13 - 75 U/L MCV (mean corpuscular volume ) determinationOrdered By: ED PROVIDER on 11-07-2024 MCV (RBC) [Entitic vol] 79.6 fL Low 81-[address] [facility] Mean corpuscular hemoglobin (MCH) determinationOrdered By: ED PROVIDER on 11-07-2024 MCH (RBC) [Entitic mass] 25.8 pg Low 27.0-32.0 [facility] Mean corpuscular hemoglobin concentration (MCHC) determinationOrdered By: ED PROVIDER on 11-07-2024 MCHC (RBC) [Mass/Vol] 32.4 g/dL 32-36 [facility] Mean platelet volume determi nationOrdered By: ED PROVIDER on 11-07-2024 Platelet mean volume (Bld) [Entitic vol] 9.5 fL 6.2-12.0 [facility] Microscopic analysis of urin e for red blood cells (RBC)Ordered By: ED PROVIDER on 11-07-2024 Microscopic analysis of urine for red blood cells (RBC) 0 SEEN /hpf 0-5 [facility] Monocyte percentageOrdered B y: ED PROVIDER on 11-07-2024 Monocytes/100 WBC (Bld) 7.0 % 0-[address] [facility] Mucus LM Ql (Urine sed)Order ed By: ED PROVIDER on 11-07-2024 Mucus Ql (Urine sed) 0 SEEN /hpf [facility] Neutrophil percentageOrdered By: ED PROVIDER on 11-07-2024 Neutrophils/100 WBC (Bld) 61.7 % 47-70 [facility] Nitrite Test strip Ql (U)Ord ered By: ED PROVIDER on 11-07-2024 Nitrite Ql (U) Negative Negative [facility] Nucleated red blood cell per centageOrdered By: ED PROVIDER on 11-07-2024 Nucleated RBC/100 WBC (Bld) [Ratio] 0 % 0-5 [facility] Platelet countOrdered By: ED PROVIDER on 11-07-2024 Platelets (Bld) [#/Vol] 336 10*3/uL 150-450 [facility] Potassium measurement (mass/ volume)Ordered By: ED PROVIDER on 11-07-2024 Potassium (Unsp spec) [Mass/Vol] 4.4 mmol/L 3.3-5.1 [facility] ,Serum,hCG Quali.on 11-07-2024 HCG, SERUM QUAL Negative Normal [facility] Comment on above: Performed By: #### L 700.6800, L100.0100, L501.2450, L500.4050 #### [facility] [address] [place], [address] Protein Test strip Ql (U)Ord ered By: ED PROVIDER on 11-07-2024 Protein Ql (U) 15 mg/dl High Negative [facility] RBC Auto (Bld) [#/Vol]Ordere d By: ED PROVIDER on 11-07-2024 RBC (Bld) [#/Vol] 5.24 10*6/uL 4.2-5.4 [facility] Serum beta-hCG test, qualita tiveOrdered By: ED PROVIDER on 11-07-2024 Beta HCG ( test) Ql Negative [facility] Serum creatinine measurement (mass/volume)Ordered By: ED PROVIDER on 11-07-2024 Creatinine [Mass/Vol] 0.58 mg/dL Low 0.70-1.20 [facility] Serum globulin measurementOr dered By: ED PROVIDER on 11-07-2024 Globulin (S) [Mass/Vol] 3.5 g/dL 2.2-4.[address] [facility] Serum glucose measurement (m ass/volume)Ordered By: ED PROVIDER on 11-07-2024 Glucose [Mass/Vol] 91 mg/dL 70-99 [facility] Serum or plasma alanine menchaca otransferase (ALT) measurementOrdered By: ED PROVIDER on 11-07-2024 ALT [Catalytic activity/Vol] 24 U/L <35 [facility] Serum or plasma albumin chris urement (mass/volume)Ordered By: ED PROVIDER on 11-07-2024 Albumin [Mass/Vol] 4.8 g/dL 3.5-5.0 [facility] Serum or plasma albumin/glob ulin mass ratioOrdered By: ED PROVIDER on 11-07-2024 Albumin/Globulin [Mass ratio] 1.4 {ratio} 0.9-2.4 [facility] Serum or plasma alkaline jeferson sphatase measurementOrdered By: ED PROVIDER on 11-07-2024 ALP [Catalytic activity/Vol] 91 U/L 35-104 [facility] Serum or plasma calcium chris urement (mass/volume)Ordered By: ED PROVIDER on 11-07-2024 Calcium [Mass/Vol] 9.9 mg/dL 7.6-11.0 [facility] Serum or plasma urea nitroge n measurement (mass/volume)Ordered By: ED PROVIDER on 11-07-2024 Urea nitrogen [Mass/Vol] 11 mg/dL 4-19 [facility] Sodium levelOrdered By: MIRTA GANDARA on 09-24-2025 Sodium [Moles/Vol] 137 mmol/L 133-145 [facility] Squamous epithelial cells de tection in urine sediment by light microscopyOrdered By: ED PROVIDER on 11-07-2024 Epithelial cells.squamous LM Ql (Urine sed) 5-10 SEEN /hpf 5- [facility] Total proteinOrdered By: ED PROVIDER on 11-07-2024 Protein [Mass/Vol] 8.3 g/dL 5.9-8.4 [facility] Urinalysis, Completeon 11-07 EPI,SQUAMOUS 5-10 SEEN Normal 5-10 [facility] Comment on above: Order Comment: NADJA CTOR TO SPECIFY Performed By: #### L 400.0001 #### [facility] [address] [facility] [address] BACTERIA 0 SEEN Normal None Seen [facility] Comment on above: Order Comment: NADJA CTOR TO SPECIFY Performed By: #### L 400.0001 #### [facility] [address] [place], [address] Mucus Ql (Urine sed) 0 SEEN Normal [facility] Comment on above: Order Comment: NADJA CTOR TO SPECIFY Performed By: #### L 400.0001 #### [facility] [address] [place], [address] RBC 0 SEEN Normal 0-5 [facility] Comment on above: Order Comment: NADJA CTOR TO SPECIFY Performed By: #### L 400.0001 #### [facility] [address] [place], [address] WBC 0 SEEN Normal 0-5 [facility] Comment on above: Order Comment: NADJA CTOR TO SPECIFY Performed By: #### L 400.0001 #### [facility] [address] [place], [address] Urine clarityOrdered By: ED PROVIDER on 11-07-2024 Clarity (U) Clear Clear [facility] Urine color determinationOrd ered By: ED PROVIDER on 11-07-2024 Color (U) Straw Yellow [facility] Urine glucose detectionOrder ed By: ED PROVIDER on 11-07-2024 Glucose Ql (U) Normal mg/dl Normal [facility] Urine leukocyte esterase det ection by dipstickOrdered By: ED PROVIDER on 11-07-2024 Leukocyte esterase Test strip Ql (U) 100 /ul High Negative [facility] Urine pHOrdered By: ED PROVI CONCHITA on 11-07-2024 pH (U) 5.0 [pH] 5.0 - 8.0 [facility] Urine sediment bacteria coun t by microscopy (number/high power field)Ordered By: ED PROVIDER on 11-07-2024 Bacteria LM.HPF (Urine sed) [#/Area] 0 /[HPF] None Seen [facility] Urine specific gravity measu rementOrdered By: ED PROVIDER on 11-07-2024 Specific gravity (U) [Rel density] 1.025 1.002-1.030 [facility] Urine urobilinogen measureme ntOrdered By: ED PROVIDER on 11-07-2024 Urobilinogen Ql (U) Normal mg/dl Normal [facility] White blood cell (WBC) count Ordered By: ED PROVIDER on 11-07-2024 WBC (Bld) [#/Vol] 9.0 10*3/uL 4.4-11.0 [facility] White blood cell countOrdere d By: ED PROVIDER on 11-07-2024 White blood cell count 0 SEEN /hpf 0-[address] [facility] B-HCG SerPl-aCncon HCG.beta subunit Qn m[IU]/mL Normal <5.0 [facility] Comment on above: Order Comment: Speci men Type: BLOOD SPECIMEN Ordering Facility: [facility] Address: [address] [place] [address] Result Comment: Nega tive Performed By: #### 2 1198-7 #### [facility] CLIA [id number] [address] [place] [address] [place] UA DIP,URINE HCG (POC)on Beta HCG ( test) Ql (U) Negative Negative [facility] Comment on above: Location:[facility], [facility] [address], [place], [address] Professor Of Geology (POCT) Internal QC [facility] Location:[facility], [address], [place], [address] [facility] POINT OF CARE [facility] CNPNon 08-30-2024 CNPN Telephone (OBGYWM) DAT HIGGINS ([id number]) 1990 F [place] Date Time Provider Department 08/30/24 VALENTE SOUZA OBGYWM During your visit today, we [...] to wait until her scheduled appointment. Farida Figueroa RN 08/30/2024 1:56 PM Signed Patient notified. Farida Figueroa RN Allergies As of Date: 08/30/2024 Noted [...] sections [Z98.891] 11/17/2017 History of macrosomia in in prior pregna*11/17/2017 03/28/2024 Family history of cleft palate with cleft lip [*11/17/2017 Obesity in [O99.210] 11/17/2017 03/28/2024 Genetic testing [Z13.79] 11/17/2017 03/28/2024 Benign gestational thrombocytopenia in third tr*05/26/2018 03/28/2024 Abnormal lie, antepartum [O32.8XX0] 06/30/2015 03/28/2024 Lower abdominal pain [R10.30] 03/28/2024 Born by section [Z38.01] 07/16/2015 03/28/2024 Obesity, Class III, BMI >= 40 [E66.813] 03/28/2024 Encounter Status:Closed by FARIDA FIGUEROA on 08/30/24 Normal [facility] C. trachomatis+N. gonorrhoea e DNA JOSE ALBERTO+probe Ql (Unsp spec)on 03-28-2024 C. trachomatis rRNA JOSE ALBERTO+probe Ql (Unsp spec) Not detected Normal Not detected [facility] Comment on above: Order Comment: Speci men Type: SWAB Ordering Facility: [facility] Address: [address] [place] [address] Performed By: #### 3 6902-5 #### [facility] CLIA [id number] [address] [place] [address] [place] [address] [place] N. gonorrhoeae rRNA JOSE ALBERTO+probe Ql (Unsp spec) Not detected Normal Not detected [facility] Comment on above: Order Comment: Speci men Type: SWAB Ordering Facility: [facility] Address: [address] [place] [address] Performed By: #### 3 6902-5 #### [facility] CLIA [id number] [address] [place] [address] [facility] CNOVon 03-28-2024 CNOV Office Visit (OBGYIN) DAT HIGGINS ([id number]) 1990 F UPA Date Time Provider Department 03/28/24 10:45 AM FAY FRANKS During your visit today, we recorded the following information about you: Blood pressure Weight Last Period 106/62 106.4 kg 03/04/24 Fay Franks MD 03/28/2024 1:00 PM Signed Dat is [...] Living2 SAB1 IAB0 Ectopic0 Multiple0 Live Births2 Medical Dosimetrist History LMP: 03/04/2024 (Approximate), Unknown Age at Menarche: 13 Age at First : Age at Menopause: Medical Dosimetrist History Comments: Sexual Activity: Yes; Male Contraception: None PAST MEDICAL HISTORY Diagnosis Date Benign gestational thrombocytopenia in third trimester (HCC) 05/26/2018 05/26/18: repeat CBC in 4 weeks. PLTS 125. Alisson Gee MD PAST SURGICAL HISTORY Procedure Laterality Date DELIVERY ONLY 08/18/2018 RC/S low transverse SECTION HX 07/2015 PAST SURGICAL HISTORY OF 2008 fatty tumor between breasts removed FAMILY HISTORY [...] external genitalia normal, normal Bartholin's glands, urethra, [place]'s glands, no vulvar lesions, no cervical lesions, good vaginal support, physiologic discharge present, normal appearing perineal body and perianal region BIMANUAL: uterus normal size, shape and consistency, no adnexal masses, and non-tender RECTOVAGINAL: deferred. NEURO: alert and oriented x3,exam grossly non-focal EXTREMITIES: normal Truck Driver Salesperson present: declined SENSITIVE EXAM: The sensitive examination was discussed with the Patient or Patient's Authorized Upstairs Maid. As applicable, any other physician, advance practice provider, medical student, or other health professional student that will be observin (more content not included)... Normal [facility] HBV surface Ag Ql (S)on 03-17 Interpretation and review of laboratory results Normal [facility] HBV surface Ag Ser Qlon 03-17 HBV surface Ag Ql (S) Negative Normal Negative [facility] Comment on above: Order Comment: Speci men Type: BLOOD SPECIMEN Ordering Facility: [facility] Address: [address] [place] [address] Performed By: #### 7 3752-8, 5195-3, 61017-4 #### [facility] CLIA [id number] [address] [place], [place] [address] [address] [place] HCV Ab Ql (S)on 03-28-2024 Interpretation and review of laboratory results Normal [facility] HCV Ab Ser Qlon 03-28-2024 HCV Ab Ql (S) Negative Normal Negative [facility] Comment on above: Order Comment: Speci men Type: BLOOD SPECIMEN Ordering Facility: [facility] Address: [address] [place] [address] Result Comment: The result suggests no evidence of active infection with Hepatitis C virus. Should recent infection be suspected, repeat testing may be considered 4-6 weeks after this draw. Performed By: #### 1 6128-1 #### [facility] CLIA [id number] [address] [place] [address] [place] HEPATITIS B SURFACE ANTIGENo n 03-28-2024 HBV surface Ag Ql (S) Negative Negative [facility] HEPATITIS C ANTIBODY IA WITH CONFIRMATIONon 03-28-2024 HCV Ab Ql (S) Negative Negative [facility] Comment on above: The result suggests no evidence of active infection with Hepatitis C virus. Should recent infection be suspected, repeat testing may be considered 4-6 weeks after this draw. HIGH RISK HUMAN PAPILLOMA LIZBETH (HPV), PCR FOR DETECTION AND GENOTYPINGon 03-28-2024 HPV 16 Ag Ql (Unsp spec) Not detected Normal Not detected [facility] Comment on above: Order Comment: Speci men Type: FLUID SPECIMEN Ordering Facility: [facility] Address: [address] [place] [address] Performed By: #### H PVHRT #### [facility] CLIA [id number] [address] [place] [address] [place] HPV 18 Ag Ql (Unsp spec) Not detected Normal Not detected [facility] Comment on above: Order Comment: Speci men Type: FLUID SPECIMEN Ordering Facility: [facility] Address: [address] [place] [address] Performed By: #### H PVHRT #### [facility] CLIA [id number] [address] [place] [address] [place] HPV 31+33+35+39+45+51+52+56 +58+59+66+68 DNA JOSE ALBERTO+probe Ql (Cvx) Not detected Normal Not detected [facility] Comment on above: Order Comment: Speci men Type: FLUID SPECIMEN Ordering Facility: [facility] Address: [address] [place] [address] Result Comment: High Risk HPV Other Type includes HPV types 31, 33, 35, 39, 45, 51, 52, 56, 58, 59, 66 and 68. Performed By: #### H PVHRT #### [facility] CLIA [id number] [address] [place] [address] [place] HIV 1+2 Ab IA Qlon 5 HIV 1 and 2 Ab IA.rapid Nom (S/P/Bld) [facility] Comment on above: Test not indicated. HIV 1+2 Ab+HIV1 p24 Ag IA Ql Non-Reactive Nonreactive [facility] HIV immunoassay testing algorithm interpretation (S/P/Bld) [Interp] [facility] Comment on above: No evidence of HIV-1 or HIV-2 infection. Should recent infection be suspected, repeat testing may be considered 2-3 weeks after this draw. [place] Rev. Code 3701.243(E): This information has been [...] release of HIV test results or diagnoses. [facility] HIV 1 and 2 Ab IA.rapid Nom (S/P/Bld) Normal [facility] Comment on above: Order Comment: Speci men Type: BLOOD SPECIMEN Ordering Facility: [facility] Address: [address] [place] [address] Result Comment: Test not indicated. Performed By: #### 7 3752-8, 5195-3, 81281-5 #### [facility] CLIA [id number] [address] [place] [address] [place] HIV 1+2 Ab+HIV1 p24 Ag IA Ql Non-Reactive Normal Nonreactive [facility] Comment on above: Order Comment: Speci men Type: BLOOD SPECIMEN Ordering Facility: [facility] Address: [address] [place] [address] Performed By: #### 7 3752-8, 5195-3, 79238-2 #### [facility] CLIA [id number] [address] [place] [address] [place] HIV immunoassay testing algorithm interpretation (S/P/Bld) [Interp] Normal [facility] Comment on above: Order Comment: Speci men Type: BLOOD SPECIMEN Ordering Facility: [facility] Address: [address] [place] [address] Result Comment: No e vidence of HIV-1 or HIV-2 infection. Should recent infection be suspected, repeat testing may be considered 2-3 weeks after this draw. [place] Rev. Code 3701.243(E): This information has been [...] diagnoses. Performed By: #### 7 3752-8, 5195-3, 81157-1 #### [facility] CLIA [id number] [address] [place] [address] [place] PAP TESTon 03-28-2024 ADEQUACY Satisfactory for interpretation. Normal [facility] Comment on above: Order Comment: Speci men Type: FLUID SPECIMEN Ordering Facility: [facility] Address: [address] [place] [address] Performed By: #### L [id number] #### [facility] CLIA [id number] [address] [place] [address] [place] [facility] CLIA [id number] [address] [place] [address] [place] CASE REPORT Normal [facility] Comment on above: Order Comment: Speci men Type: FLUID SPECIMEN Ordering Facility: [facility] Address: [address] [place] [address] Result Comment: Gyne cologic Cytology Report Case: [id number] Authorizing Provider: Fay Franks MD Collected: 03/28/2024 10:14 AM Ordering Location: OB/Gynecology Received: 03/28/2024 12:39 PM First Screen: [place], [place], [place], ASCP Specimen: Pap Test, ThinPrep, Cervix Performed By: #### L [id number] #### [facility] CLIA [id number] [address] [place] [address] [place] [facility] CLIA [id number] [address] [place] [address] [place] CLINICAL HISTORY, CYTOLOGY, DEER FARMER Routine Exam Normal [facility] Comment on above: Order Comment: Speci men Type: FLUID SPECIMEN Ordering Facility: [facility] Address: [address] [place] [address] Performed By: #### L [id number] #### [facility] CLIA [id number] [address] [place] [address] [place] [facility] CLIA [id number] [address] [place] [address] [place] CYTOLOGY PAP OTHER INTERPRETATION Predominance of coccobacilli consistent with shift in vaginal thao. Normal [facility] Comment on above: Order Comment: Speci men Type: FLUID SPECIMEN Ordering Facility: [facility] Address: [address] [place] [address] Performed By: #### L [id number] #### [facility] CLIA [id number] [address] [place] [address] [place] [facility] CLIA [id number] [address] [place] [address] [place] [facility]FORM[facility] Normal [facility] Comment on above: Order Comment: Speci men Type: FLUID SPECIMEN Ordering Facility: [facility] Address: [address] [place] [address] Result Comment: Tech nical component, junior database administrator screening performed at [facility], [address] [facility], [place] [id number] CLIA# [id number] Diagnostic interpretation performed at [facility], [address] [place] [id number] CLIA# [id number] Analytical Technician: Jannet Perez M.D. Performed By: #### L [id number] #### [facility] CLIA [id number] [address] [place] [address] [place] [facility] CLIA [id number] [address] [place] [address] [place] INTERPRETATION, CYTOLOGY, DEER FARMER Normal [facility] Comment on above: Order Comment: Speci men Type: FLUID SPECIMEN Ordering Facility: [facility] Address: [address] [place] [address] Result Comment: Nega tive for intraepithelial lesion or malignancy. at 1426 EST Performed By: #### L [id number] #### [facility] CLIA [id number] [address] [place] [address] [place] [facility] CLIA [id number] [address] [place] [address] [place] LMP 03/04/2024 Normal [facility] Comment on above: Order Comment: Speci men Type: FLUID SPECIMEN Ordering Facility: [facility] Address: [address] [place] [address] Performed By: #### L [id number] #### [facility] CLIA [id number] [address] [place] [address] [place] [facility] CLIA [id number] [address] [place] [address] [place] PAP DISCLAIMER COMMENT The Pap Smear is a screening test for cervical cancer. False negative results occur with all screening tests, emphasizing the need for rescreening at recommended intervals, and clinical correlation. Normal [facility] Comment on above: Order Comment: Speci men Type: FLUID SPECIMEN Ordering Facility: [facility] Address: [address] [place] [address] Performed By: #### L [id number] #### [facility] CLIA [id number] [address] [place] [address] [place] [facility] CLIA [id number] [address] [place] [address] [place] PAP DIRECTOR OF CLAIMS COMMENT This specimen has been analyzed by the ThinPrep Imaging System, an automated imaging and review system, which assists the laboratory in evaluating cells on ThinPrep Pap tests. Following automated imaging, selected brenner from every slide are reviewed by a junior database administrator. Normal [facility] Comment on above: Order Comment: Speci men Type: FLUID SPECIMEN Ordering Facility: [facility] Address: [address] [place] [address] Performed By: #### L [id number] #### [facility] CLIA [id number] [address] [place] [address] [place] [facility] CLIA [id number] [address] [place] [address] [place] Reagin and Treponema pallidu m IgG and IgM [Interp]on 03-28-2024 T. pallidum IgG+IgM IA Ql (S) Non-Reactive Nonreactive [facility] T. pallidum IgG+IgM IA Ql (S) Non-Reactive Normal Nonreactive [facility] Comment on above: Order Comment: Caini men Type: BLOOD SPECIMEN Ordering Facility: [facility] Address: [address] [place] [address] Performed By: #### 7 3752-8, 5195-3, 05133-0 #### [facility] CLIA [id number] [address] [place] [address] [place] Reagin+T pallidum IgG+IgM Se rPl-Impon 03-28-2024 Reagin and Treponema pallidum IgG and IgM [Interp] Cannot exclude recent Treponemal infection if specimen collected within 7-10 days after appearance of suspect lesions or 2-3 weeks after an exposure. Clinical correlation is required. Normal [facility] Comment on above: Order Comment: Caini men Type: BLOOD SPECIMEN Ordering Facility: [facility] Address: [address] [place] [address] Performed By: #### 7 3752-8, 5195-3, 48420-9 #### [facility] CLIA [id number] [address] [place] [address] [place] [address] [place] SYPHILIS TREPONEMAL W/REFLEX on 03-28-2024 Reagin and Treponema pallidum IgG and IgM [Interp] Cannot exclude recent Treponemal infection if specimen collected within 7-10 days after appearance of suspect lesions or 2-3 weeks after an exposure. Clinical correlation is required. [facility] US FEMALE PELVIS TRANSVAGon 01-05-2024 US FEMALE PELVIS [...] and stored in a permanent archive. MQ: [facility]_[email or web address] COMPARISON: None RESULT: Uterus: LMP 12/12/2023 [...] seen IMPRESSION: Normal ultrasound of the pelvis Assistant Refinery Operator: DUY Transcribe Date/Time: Jan 06 2024 9:47A Dictated by : ABIDA NORIEGA MD This examination was interpreted and the report reviewed and electronically signed by: ABIDA NORIEGA MD on Jan 06 2024 9:51AM EST [id number] CN Normal [facility] Basophil percentageOrdered B y: Kenzie Hoang on 05-03-2023 Bilirubin [Mass/Vol] 0.40 mg/dL 0.20-1.00 [facility] Comment on above: For patients on eltr ombopag therapy, use of Dimension [place] TBIL is not recommended. Chloride [Moles/Vol] 105 mmol/L 98-107 [facility] Cholesterol [Mass/Vol] 152 mg/dL <200 [facility] Comment on above: <200 mg/dL Desirable 200-240 mg/dL Borderline >240 mg/dL High Risk Glucose [Mass/Vol] 90 mg/dL 74-106 [facility] Hemoglobin (Bld) [Mass/Vol] 12.9 g/dL 12.0-15.0 [facility] Potassium [Moles/Vol] 3.8 mmol/L 3.5-5.1 [facility] Protein [Mass/Vol] 8.1 g/dL 6.4-8.2 [facility] Sodium [Moles/Vol] 138 mmol/L 136-145 [facility] Triglyceride [Mass/Vol] 250 mg/dL <199 [facility] Comment on above: The drugs N-Acetylcy steine and Metamizole may falsely depress this assay.Serum Triglycerides Reference Interval Normal <150 mg/dL Borderline high 150 - 199 mg/dL High 200 - 499 mg/dL Very High > or = 500 mg/dL WBC (Bld) [#/Vol] 8.8 10*3/uL 4.4-11.0 [facility] Determination of erythrocyte mean corpuscular volume (MCV)Ordered By: Kenzie Hoang on 05-03-2023 MCV (RBC) [Entitic vol] 82.9 fL 81-[address] [facility] Erythrocyte distribution wid th ratioOrdered By: Kenzie Hoang on 05-03-2023 Erythrocyte distribution width (RBC) [Ratio] 14.8 % 11.6-14.6 [facility] Erythrocyte distribution wid th standard deviationOrdered By: Kenzie Viktor on 05-03-2023 Erythrocyte distribution width (RBC) [Entitic vol] 44.9 fL 35.1-43.9 [facility] Hematocrit Auto (Bld) [Volum e fraction]Ordered By: Kenzie Hoang on 05-03-2023 Hematocrit (Bld) [Volume fraction] 41.1 % 37-47 [facility] Laboratory - Chemistry and C hemistry - challengeOrdered By: Kenzie Hoang on 05-03-2023 Albumin/Globulin [Mass ratio] 1.0 {ratio} 0.9-2.4 [facility] ALP [Catalytic activity/Vol] 82 U/L 45-117 [facility] ALT [Catalytic activity/Vol] 36 U/L 13-56 [facility] Cholesterol in HDL [Mass/Vol] 35 mg/dL >40 [facility] Comment on above: The drugs N-Acetylcy steine and Metamizole may falsely depress this assay. Reference Range HDL <40 mg/dL Low HDL Cholesterol HDL >or= 60 mg/dL High HDL Cholesterol Cholesterol in LDL [Mass/Vol] 67 mg/dL 0-130 [facility] CO2 [Moles/Vol] 24.0 mmol/L 21.0-32.0 [facility] Globulin (S) [Mass/Vol] 4.1 g/dL 2.2-4.2 [facility] Urea nitrogen/Creatinine [Mass ratio] 15.8 mg/mg 10-20 [facility] - Hematology and Cell countsOrdered By: Kenzie Hoang on 05-03-2023 MCH (RBC) [Entitic mass] 26.0 pg 27.0-32.0 [facility] MCHC (RBC) [Mass/Vol] 31.4 g/dL 32-36 [facility] Platelet mean volume (Bld) [Entitic vol] 10.1 fL 6.2-12.0 [facility] Platelets (Bld) [#/Vol] 343 10*3/uL 150-450 [facility] No Panel InformationOrdered By: Kenzie Hoang on 05-03-2023 Estimated GFR (MDRD) Amer 126 mL/min >60 [facility] Comment on above: GFR Calc Estimated GFR (MDRD) Non-Af Amer 104 mL/min >60 [facility] Comment on above: Non- GFR Calc VLDL Cholesterol 50 mg/dL 5-40 [facility] RBC Auto (Bld) [#/Vol]Ordere d By: Kenzie Hoang on 05-03-2023 RBC (Bld) [#/Vol] 4.96 10*6/uL 4.2-5.4 [facility] Serum or plasma calcium chris urement (mass/volume)Ordered By: Kenzie Hoang on 05-03-2023 Calcium [Mass/Vol] 9.6 mg/dL 8.5-10.1 [facility] Serum or plasma creatinine m easurement (mass/volume)Ordered By: Kenzie Hoang on 05-03-2023 Creatinine [Mass/Vol] 0.70 mg/dL 0.55-1.02 [facility] Comment on above: The validity of the calculated GFR & GFRAA in patients over 70 years has not been determined. Clinical correlation is essential. Serum or plasma thyroid stim ulating hormone (TSH) measurement (units/volume)Ordered By: Kenzie Hoang on 05-03-2023 TSH Qn 1.09 uIU/mL 0.358-3.74 [facility] Serum or plasma urea nitroge n measurement (mass/volume)Ordered By: Kenzie Hoang on 05-03-2023 Urea nitrogen [Mass/Vol] 11 mg/dL 7-18 [facility] Thin prep Papanicolaou smear with manual screeningOrdered By: Kenzie Hoang on 05-03-2023 Thin prep Papanicolaou smear with manual screening 4.0 g/dL 3.2-5.0 [facility] Thin prep Papanicolaou smear with manual screening 23 U/L 15-37 [facility] Thin prep Papanicolaou smear with manual screening 9 5-15 [facility] Whole blood hemoglobin A1c/t otal hemoglobin ratio (mass fraction)Ordered By: Kenzie Hoang on 05-03-2023 HbA1c (Bld) [Mass fraction] 5.2 % 3.8-5.6 [facility] Comment on above: Normal < 5.7 % Predi abetic 5.7 - 6.4 % Diabetic >or= 6.5 % Please note range changes. Culture, Throaton 01-20-2023 Culture, Throat ORDER#: [id number] ORDERED BY: IVANNA LAW SOURCE: Throat Throat COLLECTED: 01/20/23 09:34 ANTIBIOTICS AT [facility].: RECEIVED : 01/20/23 20:54 Culture, Throat FINAL 01/23/23 11:22 Cult,Throat: Oral thao, negative for Group A Strep and other beta Cult,Throat: hemolytic streptococci Performed at [address] [id number] ([phone] [facility] Comment on above: Performed By: #### C XTHR #### [facility] [address] [facility] [address] Culture, Urineon 09-24-2022 Culture, Urine ORDER#: [id number] ORDERED BY: IVANNA LAW SOURCE: Urine Clean Catch COLLECTED: 09/24/22 18:41 ANTIBIOTICS AT [facility]IS.: RECEIVED : 09/24/22 20:11 Culture, Urine FINAL 09/26/22 07:28 Cult,Urine: NO SIGNIFICANT GROWTH Performed at [address] [address] [facility] Comment on above: Performed By: #### C XURN #### [facility] [address] [facility] [address] Absolute lymphocyte counton 02-01-2022 Lymphocytes Auto (Unsp spec) [#/Vol] 2.29 10*3/uL 0.83-4.51 [facility] Work Phone: Basophil percentageon 2021 Basophils/100 WBC (Bld) 0.5 % 0-[address] [facility] Work Phone: Chloride [Moles/Vol] 105 mmol/L 98-107 [facility] Work Phone: Eosinophils/100 WBC (Bld) 0.7 % 0-5 [facility] Work Phone: [phone] Glucose [Mass/Vol] 89 mg/dL 74-106 [facility] Work Phone: [phone] Neutrophils (Bld) [#/Vol] 5.0 10*3/uL 2.0-7.7 [facility] Work Phone: Neutrophils/100 WBC (Bld) 62.5 % 47-70 [facility] Work Phone: Potassium [Moles/Vol] 3.8 mmol/L 3.5-5.1 [facility] Work Phone: Sodium [Moles/Vol] 137 mmol/L 136-145 [facility] Work Phone: WBC (Bld) [#/Vol] 8.1 10*3/uL 4.4-11.0 [facility] Work Phone: Basophil percentage 5-10 SEEN /hpf 0-[address] [facility] Work Phone: Bilirubin Test strip Ql (U)o n 02-01-2022 Bilirubin Ql (U) Negative Negative [facility] Work Phone: Blood erythrocytes count (nu mber/volume)on 02-01-2022 RBC (Bld) [#/Vol] 4.93 10*6/uL 4.2-5.4 [facility] Work Phone: Blood hemoglobin measurement (mass/volume)on 02-01-2022 Hemoglobin (Bld) [Mass/Vol] 12.8 g/dL 12.0-15.0 [facility] Work Phone: Blood lymphocytes/100 leukoc yteson 02-01-2022 Lymphocytes/100 WBC (Bld) 28.4 % 19-41 [facility] Work Phone: Blood monocytes/100 leukocyt eson 02-01-2022 Monocytes/100 WBC (Bld) 7.5 % 0-[address] [facility] Work Phone: Blood platelet mean volumeon 02-01-2022 Platelet mean volume (Bld) [Entitic vol] 9.5 fL 6.2-12.0 [facility] Work Phone: Determination of erythrocyte mean corpuscular volume (MCV)on 02-01-2022 MCV (RBC) [Entitic vol] 82.8 fL 81-[address] [facility] Work Phone: Hematocrit Auto (Bld) [Volum e fraction]on 02-01-2022 Hematocrit (Bld) [Volume fraction] 40.8 % 37-47 [facility] Work Phone: Ketones Test strip Ql (U)on 02-01-2022 Ketones Ql (U) Negative Negative [facility] Work Phone: Laboratory - Chemistry and C hemistry - challengeon 02-01-2022 CO2 [Moles/Vol] 27.0 mmol/L 21.0-32.0 [facility] Work Phone: Urea nitrogen/Creatinine [Mass ratio] 16.8 mg/mg 10-20 [facility] Work Phone: HCG ( test) Ql (U) Negative [facility] Work Phone: Comment on above: Very dilute urine sp ecimens, as indicated by a low specificgravity, may not contain sales representative business courses levels of hCG. If is still suspected, a first morning urinespecimen should be collected 48 hours later and tested. Laboratory - Hematology and Cell countson 02-01-2022 Erythrocyte distribution width (RBC) [Entitic vol] 43.1 fL 35.1-43.9 [facility] Work Phone: Erythrocyte distribution width (RBC) [Ratio] 14.4 % 11.6-14.6 [facility] Work Phone: Immature granulocytes/100 WBC (Bld) 0.400 % 0.0-0.9 [facility] Work Phone: Comment on above: IG% - Immature Granu locytes (promyelocytes, myelocytes and metamyelocytes) > 1% indicates that a LEFT SHIFT is Present. MCH (RBC) [Entitic mass] 26.0 pg 27.0-32.0 [facility] Work Phone: Nucleated RBC/100 WBC (Bld) [Ratio] 0 % 0-5 [facility] Work Phone: MCHC Auto (RBC) [Mass/Vol]on 02-01-2022 MCHC (RBC) [Mass/Vol] 31.4 g/dL 32-36 [facility] Work Phone: Mucus LM Ql (Urine sed)on Mucus Ql (Urine sed) 0 SEEN /hpf [facility] Work Phone: Nitrite Test strip Ql (U)on 02-01-2022 Nitrite Ql (U) Negative Negative [facility] Work Phone: No Panel Informationon 02-01 Estimated Creatinine Clearance Calc 94.05 ml/min [facility] Work Phone: Estimated GFR (MDRD) Amer 136 mL/min >60 [facility] Work Phone: Comment on above: GFR Calc Estimated GFR (MDRD) Non-Af Amer 112 mL/min >60 [facility] Work Phone: Comment on above: Non- GFR Calc Platelets bldon 02-01-2022 Platelets (Bld) [#/Vol] 289 10*3/uL 150-450 [facility] Work Phone: Protein Test strip Ql (U)on 02-01-2022 Protein Ql (U) 15 mg/dl Negative [facility] Work Phone: Serum or plasma calcium chris urement (mass/volume)on 02-01-2022 Calcium [Mass/Vol] 9.4 mg/dL 8.5-10.1 [facility] Work Phone: Serum or plasma creatinine m easurement (mass/volume)on 02-01-2022 Creatinine [Mass/Vol] 0.66 mg/dL 0.55-1.02 [facility] Work Phone: Comment on above: The validity of the calculated GFR & GFRAA in patients over 70 years has not been determined. Clinical correlation is essential. Serum or plasma urea nitroge n measurement (mass/volume)on 02-01-2022 Urea nitrogen [Mass/Vol] 11 mg/dL 7-18 [facility] Work Phone: Squamous epithelial cells de tection in urine sediment by light microscopyon 02-01-2022 Epithelial cells.squamous LM Ql (Urine sed) 10-25 SEEN /hpf 5-10 [facility] Work Phone: Thin prep Papanicolaou smear with manual screeningon 02-01-2022 Thin prep Papanicolaou smear with manual screening 5 5-15 [facility] Work Phone: Urine blood detectionon 01-14 RBC Ql (U) Negative Negative [facility] Work Phone: RBC Ql (U) 0 SEEN /hpf 0-5 [facility] Work Phone: Urine clarityon 02-01-2022 Clarity (U) Cloudy Clear [facility] Work Phone: Urine color determinationon 02-01-2022 Color (U) Yellow Yellow [facility] Work Phone: Urine glucose detectionon Glucose Ql (U) Normal mg/dl Normal [facility] Work Phone: Urine leukocyte esterase det ection by dipstickon 02-01-2022 Leukocyte esterase Test strip Ql (U) 500 /ul Negative [facility] Work Phone: Urine pHon 02-01-2022 pH (U) 6.0 [pH] 5.0 - 8.0 [facility] Work Phone: Urine sediment bacteria coun t by microscopy (number/high power field)on 02-01-2022 Bacteria LM.HPF (Urine sed) [#/Area] 4 /[HPF] None Seen [facility] Work Phone: Urine specific gravity measu rementon 02-01-2022 Specific gravity (U) [Rel density] 1.020 1.002-1.030 [facility] Work Phone: Urobilinogen Auto test strip Ql (U)on 02-01-2022 Urobilinogen Ql (U) Normal mg/dl Normal [facility] Work Phone: CBC With Platelet and Differ entialon 05-21-2021 Abs Imm Granulocytes 0.0 K/uL Normal [facility] Comment on above: Performed By: #### U DONALD #### [facility] [address] [place] [address] Basophils (Bld) [#/Vol] 0.0 10*3/uL Normal 0.0-0.1 [facility] Comment on above: Performed By: #### U DONALD #### [facility] [address] [place] [address] Basophils/100 WBC (Bld) 0.3 % Normal 0.1-1.2 [facility] Comment on above: Performed By: #### U DONALD #### [facility] [address] [place] [address] Eosinophils (Bld) [#/Vol] 0.1 10*3/uL Normal 0.0-0.4 [facility] Comment on above: Performed By: #### U DONALD #### [facility] [address] [place] [address] Eosinophils/100 WBC (Bld) 1.1 % Normal 0.7-5.8 [facility] Comment on above: Performed By: #### U DONALD #### [facility] [address] [place] [address] Erythrocyte distribution width (RBC) [Ratio] 14.4 % Normal 11.7-14.4 [facility] Comment on above: Performed By: #### U DONALD #### [facility] [address] [place] [address] Hematocrit (Bld) [Volume fraction] 38.6 % Normal 37.0-47.0 [facility] Comment on above: Performed By: #### U DONALD #### [facility] [address] [place] [address] Hemoglobin (Bld) [Mass/Vol] 12.6 g/dL Normal 11.2-15.7 [facility] Comment on above: Performed By: #### U DONALD #### [facility] [address] [place] [address] Imm Granulocytes 0.2 % Normal [facility] Comment on above: Performed By: #### U DONALD #### [facility] [address] [place] [address] Lymphocytes (Bld) [#/Vol] 1.7 10*3/uL Normal 1.2-3.7 [facility] Comment on above: Performed By: #### U DONALD #### [facility] [address] [place] [address] Lymphocytes/100 WBC (Bld) 28.4 % Normal [facility] Comment on above: Performed By: #### U DONALD #### [facility] [address] [place] [address] MCH (RBC) [Entitic mass] 26.3 pg Normal 25.6-32.2 [facility] Comment on above: Performed By: #### U DONALD #### [facility] [address] [place] [address] MCHC 32.6 % Normal 32.2-35.5 [facility] Comment on above: Performed By: #### U DONALD #### [facility] [address] [place] [address] MCV (RBC) [Entitic vol] 80.4 fL Normal 79.4-94.8 [facility] Comment on above: Performed By: #### U DONALD #### [facility] [address] [place] [address] Monocytes (Bld) [#/Vol] 0.7 10*3/uL Normal 0.2-0.9 [facility] Comment on above: Performed By: #### U DONALD #### [facility] [address] [place] [address] Monocytes/100 WBC (Bld) 11.7 % Normal 4.7-12.5 [facility] Comment on above: Performed By: #### U DONALD #### [facility] [address] [place] [address] Neutrophils (Bld) [#/Vol] 3.6 10*3/uL Normal 1.6-6.1 [facility] Comment on above: Performed By: #### U DONALD #### [facility] [address] [place] [address] Neutrophils/100 WBC (Bld) 58.3 % Normal 34.0-71.1 [facility] Comment on above: Performed By: #### U DONALD #### [facility] [address] [place] [address] Platelets (Bld) [#/Vol] 225 10*3/uL Normal 182-369 [facility] Comment on above: Performed By: #### U DONALD #### [facility] [address] [place] [address] RBC (Bld) [#/Vol] 4.80 10*6/uL Normal 3.93-5.22 [facility] Comment on above: Performed By: #### U DONALD #### [facility] [address] [place] [address] WBC (Bld) [#/Vol] 6.1 10*3/uL Normal 4.0-10.0 [facility] Comment on above: Performed By: #### U DONALD #### [facility] [address] [place] [address] Comprehensive Metabolic Pane lina 05-21-2021 Albumin [Mass/Vol] 4.6 g/dL Normal 3.5-4.6 [facility] Comment on above: Performed By: #### U DONALD #### [facility] [address] [place] [address] ALP [Catalytic activity/Vol] 82 U/L Normal 40-130 [facility] Comment on above: Performed By: #### U DONALD #### [facility] [address] [place] [address] ALT [Catalytic activity/Vol] 15 U/L Normal 0-33 [facility] Comment on above: Performed By: #### U DONALD #### [facility] [address] [place] [address] Anion gap [Moles/Vol] 12 mmol/L Normal 9-15 [facility] Comment on above: Performed By: #### U DONALD #### [facility] [address] [place] [address] AST [Catalytic activity/Vol] 15 U/L Normal 0-35 [facility] Comment on above: Performed By: #### U DONALD #### [facility] [address] [place] [address] Bilirubin [Mass/Vol] mg/dL Normal 0.2-0.7 [facility] Comment on above: Performed By: #### U DONALD #### [facility] [address] [place] [address] Calcium [Mass/Vol] 9.1 mg/dL Normal 8.5-9.9 [facility] Comment on above: Performed By: #### U DONALD #### [facility] [address] [place] [address] Chloride [Moles/Vol] 106 mmol/L Normal 95-107 [facility] Comment on above: Performed By: #### U DONALD #### [facility] [address] [place] [address] CO2 [Moles/Vol] 21 mmol/L Normal 20-31 [facility] Comment on above: Performed By: #### U DONALD #### [facility] [address] [place] [address] Creatinine [Mass/Vol] 0.48 mg/dL Low 0.50-0.90 [facility] Comment on above: Performed By: #### U DONALD #### [facility] [address] [place] [address] GFR >60.0 Normal >60 [facility] Comment on above: Result Comment: >60 mL/min/1.73m2 EGFR, calc. for ages 18 and older using the MDRD formula (not corrected for weight), is valid for stable renal function. Performed By: #### U DONALD #### [facility] [address] [place] [address] GFR/1.73 sq M.predicted among blacks MDRD (S/P/Bld) [Vol rate/Area] mL/min/{1.73_m2} Normal >60 [facility] Comment on above: Result Comment: >60 mL/min/1.73m2 EGFR, calc. for ages 18 and older using the MDRD formula (not corrected for weight), is valid for stable renal function. Performed By: #### U DONALD #### [facility] [address] [place] [address] Globulin (S) [Mass/Vol] 2.9 g/dL Normal 2.3-3.5 [facility] Comment on above: Performed By: #### U DONALD #### [facility] [address] [place] [address] Glucose [Mass/Vol] 97 mg/dL Normal 70-99 [facility] Comment on above: Performed By: #### U DONALD #### [facility] [address] [place] [address] Potassium [Moles/Vol] 4.2 mmol/L Normal 3.4-4.9 [facility] Comment on above: Performed By: #### U DONALD #### [facility] [address] [place] [address] Protein [Mass/Vol] 7.5 g/dL Normal 6.3-8.0 [facility] Comment on above: Performed By: #### U DONALD #### [facility] [address] [place] [address] Sodium [Moles/Vol] 139 mmol/L Normal 135-144 [facility] Comment on above: Performed By: #### U DONALD #### [facility] [address] [place] [address] Urea nitrogen [Mass/Vol] 15 mg/dL Normal 6-20 [facility] Comment on above: Performed By: #### U DONALD #### [facility] [address] [facility] [place] [address] D-Dimer Quanton 05-21-2021 D-Dimer Quant <0.27 Normal 0.00-0.50 [facility] Comment on above: Result Comment: VTE (DVT or PE) cut-off = 0.50 mg/L FEU Performed By: #### A MY #### [facility] [address] [place] [address] Magnesiumon 05-21-2021 Magnesium [Mass/Vol] 1.9 mg/dL Normal 1.7-2.4 [facility] Comment on above: Performed By: #### A MY #### [facility] [address] [place] [address] Troponinon 05-21-2021 Troponin I.cardiac [Mass/Vol] ng/mL Normal 0.000-0.01 [facility] Comment on above: Result Comment: Meth odology by Troponin T. Performed By: #### T ROP #### [facility] [address] [place] [address] UR Drug Screen Rapidon 05-21 Drug Screen Comment see below Normal [facility] Comment on above: Result Comment: This method is a screening test to detect only these drug classes as part of a medical workup. Confirmatory testing by another method should be ordered if clinically indicated. Performed By: #### U DSNC #### [facility] [address] [place] [address] UR Amphetamines Rapid Screen Negative Normal Negative < [facility] Comment on above: Result Comment: Effe ctive: 08/29/17 Methodology and/or Reference Range-Cutoff has changed. Performed By: #### U DSNC #### [facility] [address] [facility] [place] [address] UR Barbiturates Rapid Screen Negative Normal Negative < [facility] Comment on above: Result Comment: Effe ctive: 08/29/17 Methodology and/or Reference Range-Cutoff has changed. Performed By: #### U DSNC #### [facility] [address] [place] [address] UR Benzo Rapid Screen Negative Normal Negative < [facility] Comment on above: Result Comment: Effe ctive: 08/29/17 Methodology and/or Reference Range-Cutoff has changed. Performed By: #### U DSNC #### [facility] [address] [place] [address] UR Cannabinoids Rapid Screen Negative Normal Negative < [facility] Comment on above: Performed By: #### U DSNC #### [facility] [address] [place] [address] UR Cocaine Rapid Screen Negative Normal Negative < [facility] Comment on above: Result Comment: Effe ctive: 08/29/17 Methodology and/or Reference Range-Cutoff has changed. Performed By: #### U DSNC #### [facility] [address] [place] [address] UR Opiates Rapid Screen Negative Normal Negative < [facility] Comment on above: Result Comment: Effe ctive: 08/29/17 Methodology and/or Reference Range-Cutoff has changed. Performed By: #### U DSNC #### [facility] [address] [place] [address] UR PCP Rapid Screen Negative Normal Negative < [facility] Comment on above: Performed By: #### U DSNC #### [facility] [address] [place] [address] UR HCG Qualitativeon 022 Beta HCG ( test) Ql (U) Negative Normal Detects [facility] Comment on above: Performed By: #### U HCG #### [facility] [address] [place] [address] Urinalysis, reflex to cultur dalton 05-21-2021 Urine Reflexed to Culture Not Indicated Normal [facility] Comment on above: Performed By: #### U AR #### [facility] [address] [place] [address] Bilirubin Ql (U) Negative Normal Negative [facility] Comment on above: Performed By: #### U AR #### [facility] [address] [place] [address] Clarity (U) Clear Normal Clear [facility] Comment on above: Performed By: #### U AR #### [facility] [address] [place] [address] Color (U) Yellow Normal Straw/Fentress [facility] Comment on above: Performed By: #### U AR #### [facility] [address] [place] [address] Glucose Ql (U) Negative Normal Negative [facility] Comment on above: Performed By: #### U AR #### [facility] [address] [place] [address] Hemoglobin Ql (U) Moderate Normal Negative [facility] Comment on above: Performed By: #### U AR #### [facility] [address] [place] [address] Ketones Ql (U) Negative Normal Negative [facility] Comment on above: Performed By: #### U AR #### [facility] [address] [place] [address] Leukocyte esterase Test strip Ql (U) Small Normal Negative [facility] Comment on above: Performed By: #### U AR #### [facility] [address] [place] [address] Nitrite Ql (U) Negative Normal Negative [facility] Comment on above: Performed By: #### U AR #### [facility] [address] [place] [address] pH (U) 7.0 [pH] Normal 5.0-9.0 [facility] Comment on above: Performed By: #### U AR #### [facility] [address] [place] [address] Protein Ql (U) Negative Normal Negative [facility] Comment on above: Performed By: #### U AR #### [facility] [address] [place] [address] Specific gravity (U) [Rel density] 1.020 Normal 1.005-1.03 [facility] Comment on above: Performed By: #### U AR #### [facility] [address] [place] [address] Urobilinogen Qn (U) 0.2 {Erich'U}/dL Normal < 2.0 [facility] Comment on above: Performed By: #### U AR #### [facility] [address] [place] [address] Urine Microscopicon 05-22-19 22 Epithelial cells LM Ql (Urine sed) 3-5 Normal [facility] Comment on above: Performed By: #### A MY #### [facility] [address] [place] [address] Urine Amorphous 1+ Normal [facility] Comment on above: Performed By: #### A MY #### [facility] [address] [place] [address] Urine Bacteria RARE Abnormal Negative [facility] Comment on above: Performed By: #### A MY #### [facility] [address] [place] [address] Urine RBC 3-5 Abnormal 0-2 [facility] Comment on above: Performed By: #### A MY #### [facility] [address] [place] [address] Urine WBC 3-5 Normal 0-5 [facility] Comment on above: Performed By: #### A MY #### [facility] [address] [place] [address] XR CHEST PORTABLEon 05-22-19 22 XR CHEST PORTABLE EXAMINATION: XR CHEST PORTABLE CLINICAL HISTORY: CHEST PAIN COMPARISONS: CT CHEST JULY 19, 2012, CHEST RADIOGRAPH, JULY 12, 2012 FINDINGS: Osseous structures are intact. Cardiopericardial silhouette is normal. Pulmonary vasculature is normal. Lungs are clear. IMPRESSION: NO ACUTE CARDIOPULMONARY DISEASE. Interpreted by: Frankie Booker MD Signed by: Frankie Booker MD 05/21/21 Final result Normal [facility] Amylaseon 04-01-2021 Amylase [Catalytic activity/Vol] 41 U/L Normal 22-93 [facility] Comment on above: Performed By: #### A MY #### [facility] [address] [place] [address] Amylase [Catalytic activity/Vol] 41 U/L 22 - 93 U/L [facility] CBC With Platelet and Differ entialon 04-01-2021 Abs Imm Granulocytes 0.0 K/uL Normal [facility] Comment on above: Performed By: #### A MY #### [facility] [address] [place] [address] Basophils (Bld) [#/Vol] 0.0 10*3/uL Normal 0.0-0.1 [facility] Comment on above: Performed By: #### A MY #### [facility] [address] [place] [address] Basophils/100 WBC (Bld) 0.4 % Normal 0.1-1.2 [facility] Comment on above: Performed By: #### A MY #### [facility] [address] [place] [address] Eosinophils (Bld) [#/Vol] 0.1 10*3/uL Normal 0.0-0.4 [facility] Comment on above: Performed By: #### A MY #### [facility] [address] [place] [address] Eosinophils/100 WBC (Bld) 1.1 % Normal 0.7-5.8 [facility] Comment on above: Performed By: #### A MY #### [facility] [address] [place] [address] Erythrocyte distribution width (RBC) [Ratio] 14.4 % Normal 11.7-14.4 [facility] Comment on above: Performed By: #### A MY #### [facility] [address] [place] [address] Hematocrit (Bld) [Volume fraction] 40.9 % Normal 37.0-47.0 [facility] Comment on above: Performed By: #### A MY #### [facility] [address] [place] [address] Hemoglobin (Bld) [Mass/Vol] 13.4 g/dL Normal 11.2-15.7 [facility] Comment on above: Performed By: #### A MY #### [facility] [address] [place] [address] Imm Granulocytes 0.2 % Normal [facility] Comment on above: Performed By: #### A MY #### [facility] [address] [place] [address] Lymphocytes (Bld) [#/Vol] 1.9 10*3/uL Normal 1.2-3.7 [facility] Comment on above: Performed By: #### A MY #### [facility] [address] [place] [address] Lymphocytes/100 WBC (Bld) 33.5 % Normal [facility] Comment on above: Performed By: #### A MY #### [facility] [address] [place] [address] MCH (RBC) [Entitic mass] 26.9 pg Normal 25.6-32.2 [facility] Comment on above: Performed By: #### A MY #### [facility] [address] [place] [address] MCHC 32.8 % Normal 32.2-35.5 [facility] Comment on above: Performed By: #### A MY #### [facility] [address] [place] [address] MCV (RBC) [Entitic vol] 82.0 fL Normal 79.4-94.8 [facility] Comment on above: Performed By: #### A MY #### [facility] [address] [place] [address] Monocytes (Bld) [#/Vol] 0.5 10*3/uL Normal 0.2-0.9 [facility] Comment on above: Performed By: #### A MY #### [facility] [address] [place] [address] Monocytes/100 WBC (Bld) 9.3 % Normal 4.7-12.5 [facility] Comment on above: Performed By: #### A MY #### [facility] [address] [place] [address] Neutrophils (Bld) [#/Vol] 3.1 10*3/uL Normal 1.6-6.1 [facility] Comment on above: Performed By: #### A MY #### [facility] [address] [place] [address] Neutrophils/100 WBC (Bld) 55.5 % Normal 34.0-71.1 [facility] Comment on above: Performed By: #### A MY #### [facility] [address] [place] [address] Platelets (Bld) [#/Vol] 296 10*3/uL Normal 182-369 [facility] Comment on above: Performed By: #### A MY #### [facility] [address] [place] [address] RBC (Bld) [#/Vol] 4.99 10*6/uL Normal 3.93-5.22 [facility] Comment on above: Performed By: #### A MY #### [facility] [address] [place] [address] WBC (Bld) [#/Vol] 5.6 10*3/uL Normal 4.0-10.0 [facility] Comment on above: Performed By: #### A MY #### [facility] [address] [place] [address] Basophils (Bld) [#/Vol] 0.0 10*3/uL Normal 0.0-0.2 [facility] Comment on above: Performed By: #### C BCWD #### [facility] [address] [place] [address] Basophils/100 WBC (Bld) 0.3 % Normal [facility] Comment on above: Performed By: #### C BCWD #### [facility] [address] [place] [address] Eosinophils (Bld) [#/Vol] 0.0 10*3/uL Normal 0.0-0.7 [facility] Comment on above: Performed By: #### C BCWD #### [facility] [address] [place] [address] Eosinophils/100 WBC (Bld) 0.8 % Normal [facility] Comment on above: Performed By: #### C BCWD #### [facility] [address] [place] [address] Erythrocyte distribution width (RBC) [Ratio] 15.8 % Critically high 11.5-14.5 [facility] Comment on above: Performed By: #### C BCWD #### [facility] [address] [place] [address] Hematocrit (Bld) [Volume fraction] 38.1 % Normal 37.0-47.0 [facility] Comment on above: Performed By: #### C BCWD #### [facility] [address] [place] [address] Hemoglobin (Bld) [Mass/Vol] 12.4 g/dL Normal 12.0-16.0 [facility] Comment on above: Performed By: #### C BCWD #### [facility] [address] [place] [address] Lymphocytes (Bld) [#/Vol] 1.2 10*3/uL Normal 1.0-4.8 [facility] Comment on above: Performed By: #### C BCWD #### [facility] [address] [place] [address] Lymphocytes/100 WBC (Bld) 23.5 % Normal [facility] Comment on above: Performed By: #### C BCWD #### [facility] [address] [place] [address] MCH (RBC) [Entitic mass] 26.6 pg Low 27.0-31.3 [facility] Comment on above: Performed By: #### C BCWD #### [facility] [address] [place] [address] MCHC 32.7 % Low 33.0-37.0 [facility] Comment on above: Performed By: #### C BCWD #### [facility] [address] [place] [address] MCV (RBC) [Entitic vol] 81.3 fL Low 82.0-100.0 [facility] Comment on above: Performed By: #### C BCWD #### [facility] [address] [place] [address] Monocytes (Bld) [#/Vol] 0.4 10*3/uL Normal 0.2-0.8 [facility] Comment on above: Performed By: #### C BCWD #### [facility] [address] [place] [address] Monocytes/100 WBC (Bld) 8.0 % Normal [facility] Comment on above: Performed By: #### C BCWD #### [facility] [address] [place] [address] Neutrophils (Bld) [#/Vol] 3.4 10*3/uL Normal 1.4-6.5 [facility] Comment on above: Performed By: #### C BCWD #### [facility] [address] [place] [address] Neutrophils/100 WBC (Bld) 67.4 % Normal [facility] Comment on above: Performed By: #### C BCWD #### [facility] [address] [place] [address] Platelets (Bld) [#/Vol] 242 10*3/uL Normal 130-400 [facility] Comment on above: Performed By: #### C BCWD #### [facility] [address] [place] [address] RBC (Bld) [#/Vol] 4.68 10*6/uL Normal 4.20-5.40 [facility] Comment on above: Performed By: #### C BCWD #### [facility] [address] [place] [address] WBC (Bld) [#/Vol] 5.1 10*3/uL Normal 4.8-10.8 [facility] Comment on above: Performed By: #### C BCWD #### [facility] [address] [place] [address] CBC with Auto Differentialon 04-01-2021 Basophils (Bld) [#/Vol] 0.0 10*3/uL 0.0 - 0.1 K/uL [facility] Basophils/100 WBC (Bld) 0.4 % 0.1 - 1.2 % [facility] Eosinophils (Bld) [#/Vol] 0.1 10*3/uL 0.0 - 0.4 K/uL [facility] Eosinophils/100 WBC (Bld) 1.1 % 0.7 - 5.8 % [facility] Hematocrit (Bld) [Volume fraction] 40.9 % 37.0 - 47.0 % [facility] Hemoglobin.gastrointest inal spec 1 Ql (Stl) 13.4 g/dL 11.2 - 15.7 g/dL [facility] Immature granulocytes (Bld) [#/Vol] 0.0 10*3/uL [facility] Immature granulocytes/100 WBC (Bld) 0.2 % [facility] Lymphocytes (Bld) [#/Vol] 1.9 10*3/uL 1.2 - 3.7 K/uL [facility] Lymphocytes/100 WBC (Bld) 33.5 % [facility] MCH (RBC) [Entitic mass] 26.9 pg 25.6 - 32.2 pg [facility] MCHC (RBC) [Mass/Vol] 32.8 % 32.2 - 35.5 % [facility] MCV (RBC) [Entitic vol] 82.0 fL 79.4 - 94.8 fL [facility] Monocytes (Bld) [#/Vol] 0.5 10*3/uL 0.2 - 0.9 K/uL [facility] Monocytes/100 WBC (Bld) 9.3 % 4.7 - 12.5 % [facility] [employer] Neutrophils Absolute 3.1 K/uL 1.6 - 6 .1 K/uL [facility] [employer] Neutrophils/100 WBC (Bld) 55.5 % 34.0 - 71.1 % [employer] Platelet distribution width (Bld) [Ratio] 14.4 % 11.7 - 14.4 % [facility] [employer] Platelets (Bld) [#/Vol] 296 10*3/uL 182 - 369 K/uL [facility] [employer] RBC (Bld) [#/Vol] 4.99 10*6/uL [facility] [employer] WBC (Bld) [#/Vol] 5.6 10*3/uL 4.0 - 10.0 K/uL [facility] CT ABDOMEN PELVIS W IV CONTR Selin [...] Frankie Booker MD 04/01/21 Final result Normal [facility] CT ABDOMEN PELVIS W IV CONTR AST Additional Contrast? Noneon 04-01-2021 No acute findings. All CT scans at this facility use dose modulation, iterative reconstruction, and/or weight based dosing when appropriate to reduce radiation dose to as low as reasonably achievable. [facility] RADIOLOG[facility] CT of the Abdomen and Pelvis [...] No degenerative changes. No post operative changes. [facility] Frankie Booker MD - 04/01/2021 CT of the Abdomen [...] dose to as low as reasonably achievable. [employer] Work Phone: Radiology Study observation (narrative) [employer] ([employer]) Work Phone: CT ABDOMEN PELVIS W IV CONTR AST Additional Contrast? NoneOrdered By: Frankie Booker on 04-01-2021 [employer] Work Phone: Comprehensive Metabolic Pane lina 04-01-2021 Albumin [Mass/Vol] 4.6 g/dL Normal 3.5-4.6 [facility] Comment on above: Performed By: #### A MY #### [facility] [address] [place] [address] ALP [Catalytic activity/Vol] 94 U/L Normal 40-130 [facility] Comment on above: Performed By: #### A MY #### [facility] [address] [place] [address] ALT [Catalytic activity/Vol] 25 U/L Normal 0-33 [facility] Comment on above: Performed By: #### A MY #### [facility] [address] [place] [address] Anion gap [Moles/Vol] 13 mmol/L Normal 9-15 [facility] Comment on above: Performed By: #### A MY #### [facility] [address] [place] [address] AST [Catalytic activity/Vol] 23 U/L Normal 0-35 [facility] Comment on above: Performed By: #### A MY #### [facility] [address] [place] [address] Bilirubin [Mass/Vol] 0.4 mg/dL Normal 0.2-0.7 [facility] Comment on above: Performed By: #### A MY #### [facility] [address] [place] [address] Calcium [Mass/Vol] 9.1 mg/dL Normal 8.5-9.9 [facility] Comment on above: Performed By: #### A MY #### [facility] [address] [place] [address] Chloride [Moles/Vol] 102 mmol/L Normal 95-107 [facility] Comment on above: Performed By: #### A MY #### [facility] [address] [place] [address] CO2 [Moles/Vol] 24 mmol/L Normal 20-31 [facility] Comment on above: Performed By: #### A MY #### [facility] [address] [place] [address] Creatinine [Mass/Vol] 0.59 mg/dL Normal 0.50-0.90 [facility] Comment on above: Performed By: #### A MY #### [facility] [address] [place] [address] GFR >60.0 Normal >60 [facility] Comment on above: Result Comment: >60 mL/min/1.73m2 EGFR, calc. for ages 18 and older using the MDRD formula (not corrected for weight), is valid for stable renal function. Performed By: #### A MY #### [facility] [address] [place] [address] GFR/1.73 sq M.predicted among blacks MDRD (S/P/Bld) [Vol rate/Area] mL/min/{1.73_m2} Normal >60 [facility] Comment on above: Result Comment: >60 mL/min/1.73m2 EGFR, calc. for ages 18 and older using the MDRD formula (not corrected for weight), is valid for stable renal function. Performed By: #### A MY #### [facility] [address] [place] [address] Globulin (S) [Mass/Vol] 3.1 g/dL Normal 2.3-3.5 [facility] Comment on above: Performed By: #### A MY #### [facility] [address] [place] [address] Glucose [Mass/Vol] 90 mg/dL Normal 70-99 [facility] Comment on above: Performed By: #### A MY #### [facility] [address] [place] [address] Potassium [Moles/Vol] 3.6 mmol/L Normal 3.4-4.9 [facility] Comment on above: Performed By: #### A MY #### [facility] [address] [place] [address] Protein [Mass/Vol] 7.7 g/dL Normal 6.3-8.0 [facility] Comment on above: Performed By: #### A MY #### [facility] [address] [place] [address] Sodium [Moles/Vol] 139 mmol/L Normal 135-144 [facility] Comment on above: Performed By: #### A MY #### [facility] [address] [place] [address] Urea nitrogen [Mass/Vol] 10 mg/dL Normal 6-20 [facility] Comment on above: Performed By: #### A MY #### [facility] [address] [place] [address] Albumin [Mass/Vol] 4.6 g/dL 3.5 - 4.6 g/dL [facility] ALP (Bld) [Catalytic activity/Vol] 94 U/L 40 - 130 U/L [facility] ALT [Catalytic activity/Vol] 25 U/L 0 - 33 U/L [facility] Anion gap [Moles/Vol] 13 mmol/L [facility] AST [Catalytic activity/Vol] 23 U/L 0 - 35 U/L [facility] Bilirubin [Mass/Vol] 0.4 mg/dL 0.2 - 0 .7 mg/dL [facility] Calcium [Mass/Vol] 9.1 mg/dL 8.5 - 9.9 mg/dL [facility] Chloride [Moles/Vol] 102 mmol/L [facility] CO2 [Moles/Vol] 24 [facility] Creatinine [Mass/Vol] 0.59 mg/dL 0.50 - 0.90 mg/dL [facility] Free PSA/Total PSA [Mass fraction] 7.7 g/dL 6.3 - 8.0 g/dL [facility] GFR >60.0 >60 [facility] Comment on above: >60 mL/min/1.73m2 EG FR, calc. for ages 18 and older using the MDRD formula (not corrected for weight), is valid for stable renal function. GFR Non- >60.0 >60 [facility] Comment on above: >60 mL/min/1.73m2 EG FR, calc. for ages 18 and older using the MDRD formula (not corrected for weight), is valid for stable renal function. Globulin (S) [Mass/Vol] 3.1 g/dL 2.3 - 3.5 g/dL [facility] Glucose [Mass/Vol] 90 mg/dL 70 - 99 mg/dL [facility] Potassium [Moles/Vol] 3.6 mmol/L [facility] Sodium [Moles/Vol] 139 mmol/L [facility] Urea nitrogen (BldV) [Mass/Vol] 10 mg/dL 6 - 20 mg/dL [facility] Albumin [Mass/Vol] 4.6 g/dL Normal 3.5-4.6 [facility] Comment on above: Performed By: #### C MP #### [facility] [address] [place] [address] ALP [Catalytic activity/Vol] 84 U/L Normal 40-130 [facility] Comment on above: Performed By: #### C MP #### [facility] [address] [place] [address] ALT [Catalytic activity/Vol] 26 U/L Normal 0-33 [facility] Comment on above: Performed By: #### C MP #### [facility] [address] [place] [address] Anion gap [Moles/Vol] 10 mmol/L Normal 9-15 [facility] Comment on above: Performed By: #### C MP #### [facility] [address] [place] [address] AST [Catalytic activity/Vol] 22 U/L Normal 0-35 [facility] Comment on above: Performed By: #### C MP #### [facility] [address] [place] [address] Bilirubin [Mass/Vol] 0.4 mg/dL Normal 0.2-0.7 [facility] Comment on above: Performed By: #### C MP #### [facility] [address] [place] [address] Calcium [Mass/Vol] 9.2 mg/dL Normal 8.5-9.9 [facility] Comment on above: Performed By: #### C MP #### [facility] [address] [place] [address] Chloride [Moles/Vol] 102 mmol/L Normal 95-107 [facility] Comment on above: Performed By: #### C MP #### [facility] [address] [place] [address] CO2 [Moles/Vol] 26 mmol/L Normal 20-31 [facility] Comment on above: Performed By: #### C MP #### [facility] [address] [place] [address] Creatinine [Mass/Vol] 0.56 mg/dL Normal 0.50-0.90 [facility] Comment on above: Performed By: #### C MP #### [facility] [address] [place] [address] GFR >60.0 Normal >60 [facility] Comment on above: Result Comment: >60 mL/min/1.73m2 EGFR, calc. for ages 18 and older using the MDRD formula (not corrected for weight), is valid for stable renal function. Performed By: #### C MP #### [facility] [address] [place] [address] GFR/1.73 sq M.predicted among blacks MDRD (S/P/Bld) [Vol rate/Area] mL/min/{1.73_m2} Normal >60 [facility] Comment on above: Result Comment: >60 mL/min/1.73m2 EGFR, calc. for ages 18 and older using the MDRD formula (not corrected for weight), is valid for stable renal function. Performed By: #### C MP #### [facility] [address] [place] [address] Globulin (S) [Mass/Vol] 2.9 g/dL Normal 2.3-3.5 [facility] Comment on above: Performed By: #### C MP #### [facility] [address] [place] [address] Glucose [Mass/Vol] 82 mg/dL Normal 70-99 [facility] Comment on above: Performed By: #### C MP #### [facility] [address] [place] [address] Potassium [Moles/Vol] 4.0 mmol/L Normal 3.4-4.9 [facility] Comment on above: Performed By: #### C MP #### [facility] [address] [place] [address] Protein [Mass/Vol] 7.5 g/dL Normal 6.3-8.0 [facility] Comment on above: Performed By: #### C MP #### [facility] [address] [place] [address] Sodium [Moles/Vol] 138 mmol/L Normal 135-144 [facility] Comment on above: Performed By: #### C MP #### [facility] [address] [place] [address] Urea nitrogen [Mass/Vol] 10 mg/dL Normal 6-20 [facility] Comment on above: Performed By: #### C MP #### [facility] [address] [place] [address] Culture, Urineon 04-01-2021 Culture, Urine ORDER#: [id number] ORDERED BY: SASHA CATHERINE SOURCE: Urine Clean Catch COLLECTED: 04/01/21 16:48 ANTIBIOTICS AT LUIS.: RECEIVED : 04/01/21 18:53 Culture, Urine FINAL 04/03/21 10:49 No growth 24 hours Normal [facility] Comment on above: Performed By: #### C XURN #### [facility] [address] [place] [address] Lipaseon 04-01-2021 Lipase [Catalytic activity/Vol] 28 U/L Normal 12-95 [facility] Comment on above: Performed By: #### A MY #### [facility] [address] [place] [address] Lipase [Catalytic activity/Vol] 28 U/L 12 - 95 U/L [facility] Microscopic Urinalysison Amorphous, UA 1+ [facility] B[facility], UA MODERATE Abnormal Negative /HPF [facility] Epithelial Cells, UA 5-10 /HPF [facility] Mucus, UA Present None Seen /LPF [facility] RBC, UA 0-2 [facility] WBC, UA 10-20 Abnormal [facility] No Panel Informationon 04-01 [facility] Interpretation and review of laboratory results Abnormal [facility] , Urineon 2 Beta HCG ( test) Ql (U) Negative Detects HCG level >20 MIU/mL [facility] UR HCG Qualitativeon 022 Beta HCG ( test) Ql (U) Negative Normal Detects HC [facility] Comment on above: Performed By: #### A MY #### [facility] [address] [place] [address] US GALLBLADDER RUQon 022 US GALLBLADDER RUQ [...] Vern Tyler MD 04/01/21 Final result Normal [facility] Unremarkable liver and gallbladder. [facility] RADIOLOGY LIMITED ABDOMINAL ULTRASOUND: INDICATION: 30-year-old female [...] evidence of free fluid in the abdomen. [facility] RADIOLOGY Vern Tyler MD - 04/01/2021 LIMITED [...] the abdomen. IMPRESSION: Unremarkable liver and gallbladder. [facility] [employer] Work Phone: Radiology Study observation (narrative) [facility] [employer] [facility] Work Phone: US GALLBLADDER RUQOrdered By : Vern Tyler on 04-01-2021 [facility] [employer] Work Phone: Urinalysis with Reflex to Cu ltureon 04-01-2021 Bilirubin Urine Negative Negative [facility] Blood, Urine Small Negative [facility] Clarity, UA SLCLOUDY Clear [facility] Color, UA Yellow Straw/Yellow [facility] Glucose, Ur Negative Negative mg/dL [facility] Ketones Ql (U) Trace Negative mg/dL [facility] Leukocyte esterase Test strip Ql (U) Trace Negative [facility] Nitrite, Urine Negative Negative [facility] pH, UA 7.0 [facility] Protein (U) [Mass/Vol] 30 mg/dL Abnormal Negative [facility] Specific [place], UA 1.025 [facility] Urine Reflex to Culture Yes [facility] Urobilinogen, Urine 1.0 <2.0 E.U./dL [facility] Urinalysis, reflex to cultur dalton 04-01-2021 Urine Reflexed to Culture Yes Normal [facility] Comment on above: Performed By: #### U AR #### [facility] [address] [place] [address] Bilirubin Ql (U) Negative Normal Negative [facility] Comment on above: Performed By: #### U AR #### [facility] [address] [place] [address] Clarity (U) SLCLOUDY Normal Clear [facility] Comment on above: Performed By: #### U AR #### [facility] [address] [place] [address] Color (U) Yellow Normal Straw/[place] [facility] Comment on above: Performed By: #### U AR #### [facility] [address] [place] [address] Glucose Ql (U) Negative Normal Negative [facility] Comment on above: Performed By: #### U AR #### [facility] [address] [place] [address] Hemoglobin Ql (U) Small Normal Negative [facility] Comment on above: Performed By: #### U AR #### [facility] [address] [place] [address] Ketones Ql (U) Trace Normal Negative [facility] Comment on above: Performed By: #### U AR #### [facility] [address] [place] [address] Leukocyte esterase Test strip Ql (U) Trace Normal Negative [facility] Comment on above: Performed By: #### U AR #### [facility] [address] [place] [address] Nitrite Ql (U) Negative Normal Negative [facility] Comment on above: Performed By: #### U AR #### [facility] [address] [place] [address] pH (U) 7.0 [pH] Normal 5.0-9.0 [facility] Comment on above: Performed By: #### U AR #### [facility] [address] [place] [address] Protein Ql (U) 30 mg/dL Abnormal Negative [facility] Comment on above: Performed By: #### U AR #### [facility] [address] [place] [address] Specific gravity (U) [Rel density] 1.025 Normal 1.005-1.03 [facility] Comment on above: Performed By: #### U AR #### [facility] [address] [place] [address] Urobilinogen Qn (U) 1.0 {Erich'U}/dL Normal < 2.0 [facility] Comment on above: Performed By: #### U AR #### [facility] [address] [place] [address] Urine Microscopicon 04-01-19 22 Epithelial cells LM Ql (Urine sed) 5-10 Normal [facility] Comment on above: Performed By: #### U DONALD #### [facility] [address] [place] [address] Urine Amorphous 1+ Normal [facility] Comment on above: Performed By: #### U DONALD #### [facility] [address] [place] [address] Urine Bacteria MODERATE Abnormal Negative [facility] Comment on above: Performed By: #### U DONALD #### [facility] [address] [place] [address] Urine Mucous Present Normal None Seen [facility] Comment on above: Performed By: #### U DONALD #### [facility] [address] [place] [address] Urine RBC 0-2 Normal 0-2 [facility] Comment on above: Performed By: #### U DONALD #### [facility] [address] [place] [address] Urine WBC 10-20 Abnormal 0-5 [facility] Comment on above: Performed By: #### U DONALD #### [facility] [address] [place] [address] CBC With Auto Differentialon 03-31-2021 Basophils (Bld) [#/Vol] 0.0 10*3/uL 0.0 - 0.2 K/uL [facility] Basophils/100 WBC (Bld) 0.3 % [facility] Eosinophils (Bld) [#/Vol] 0.0 10*3/uL 0.0 - 0.7 K/uL [facility] Eosinophils/100 WBC (Bld) 0.8 % [facility] Hematocrit (Bld) [Volume fraction] 38.1 % 37.0 - 47.0 % [facility] Hemoglobin.gastrointest inal spec 1 Ql (Stl) 12.4 g/dL 12.0 - 16.0 g/dL [facility] Interpretation and review of laboratory results Abnormal [facility] Lymphocytes (Bld) [#/Vol] 1.2 10*3/uL 1.0 - 4.8 K/uL [facility] Lymphocytes/100 WBC (Bld) 23.5 % [facility] MCH (RBC) [Entitic mass] 26.6 pg Low 27.0 - 31.3 pg [facility] MCHC (RBC) [Mass/Vol] 32.7 % Low 33.0 - 37.0 % [facility] MCV (RBC) [Entitic vol] 81.3 fL Low 82.0 - 100.0 fL [facility] Monocytes (Bld) [#/Vol] 0.4 10*3/uL 0.2 - 0.8 K/uL [facility] Monocytes/100 WBC (Bld) 8.0 % [facility] Neutrophils Absolute 3.4 K/uL 1.4 - 6 .5 K/uL [facility] Neutrophils/100 WBC (Bld) 67.4 % [facility] Platelet distribution width (Bld) [Ratio] 15.8 % High 11.5 - 14.5 % [facility] Platelets (Bld) [#/Vol] 242 10*3/uL 130 - 400 K/uL [facility] RBC (Bld) [#/Vol] 4.68 10*6/uL [facility] WBC (Bld) [#/Vol] 5.1 10*3/uL 4.8 - 10.8 K/uL [facility] Comprehensive Metabolic Pane lina 03-31-2021 Albumin [Mass/Vol] 4.6 g/dL 3.5 - 4.6 g/dL [facility] ALP (Bld) [Catalytic activity/Vol] 84 U/L 40 - 130 U/L [facility] ALT [Catalytic activity/Vol] 26 U/L 0 - 33 U/L [facility] Anion gap [Moles/Vol] 10 mmol/L [facility] AST [Catalytic activity/Vol] 22 U/L 0 - 35 U/L [facility] Bilirubin [Mass/Vol] 0.4 mg/dL 0.2 - 0 .7 mg/dL [facility] Calcium [Mass/Vol] 9.2 mg/dL 8.5 - 9.9 mg/dL [facility] Chloride [Moles/Vol] 102 mmol/L [facility] CO2 [Moles/Vol] 26 mmol/L [facility] Creatinine [Mass/Vol] 0.56 mg/dL 0.50 - 0.90 mg/dL [facility] Free PSA/Total PSA [Mass fraction] 7.5 g/dL 6.3 - 8.0 g/dL [facility] GFR >60.0 >60 [facility] Comment on above: >60 mL/min/1.73m2 EG FR, calc. for ages 18 and older using the MDRD formula (not corrected for weight), is valid for stable renal function. GFR Non- >60.0 >60 [facility] Comment on above: >60 mL/min/1.73m2 EG FR, calc. for ages 18 and older using the MDRD formula (not corrected for weight), is valid for stable renal function. Globulin (S) [Mass/Vol] 2.9 g/dL 2.3 - 3.5 g/dL [facility] Glucose [Mass/Vol] 82 mg/dL 70 - 99 mg/dL [facility] Potassium [Moles/Vol] 4.0 mmol/L [facility] Sodium [Moles/Vol] 138 mmol/L [facility] Urea nitrogen (BldV) [Mass/Vol] 10 mg/dL 6 - 20 mg/dL [facility] THINPREP PAP AND HPV mRNA E6 /E7, CHLAMYDIA/N.GONORRHOEAEon 03-10-2021 CHLAMYDIA TRACHOMATIS RNA, TMA, UROGENITAL Not detected Normal NOT DETECTED [employer] Comment on above: Order Comment: 0 Performed By: #### 9 1274 #### [employer] [address] Machine Try Out Setter: Emiliano Yousif MD [facility] [address], [address] [place] [address] Machine Try Out Setter: Emiliano Yousif MD CLINICAL INFORMATION: Normal [facility] Comment on above: Order Comment: 0 Result Comment: None given Performed By: #### 9 1274 #### [facility], [address] [place] [address] Machine Try Out Setter: Emiliano Yousif MD [facility] [address], [address] [place] [address] Machine Try Out Setter: Emiliano Yousif MD COMMENT Normal [facility] [...] Performed By: #### 9 1274 #### [facility], [address] [place] [address] Machine Try Out Setter: Emiliano Yousif MD [facility] [address], [address] [place] [address] Machine Try Out Setter: Emiliano Yousif MD Result Comment: The analytical performance characteristics of this assay, when used to test SurePath(TM) specimens have been determined by [employer]. The modifications have not been cleared or approved by the FDA. This assay has been validated pursuant to the CLIA regulations and is used for clinical purposes. 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 Performed By: #### 9 1274 #### [facility], [address] [place] [address] Machine Try Out Setter: Emiliano Yousif MD [facility] [place] [address] Machine Try Out Setter: Emiliano Yousif MD HPV mRNA E6/E7 Not detected Normal Not Detected [facility] Comment on above: Order Comment: 0 Result Comment: Meth odology: Bell Clerk-Mediated Amplification This assay detects E6/E7 viral messenger RNA (mRNA) from 14 high-risk HPV types (16,18,31,33,35,39,45,51,52,56,58,59,66,68). The analytical performance characteristics of this assay have been determined by [employer]. The modifications have not been cleared or approved by the FDA. This assay has been validated pursuant to the CLIA regulations and is used for clinical purposes. For additional information, please refer to http://education.[employer]ash[employer].HOMETRAX/faq/NLA110t5 (This link if provided for information/ educational purposes only.) Performed By: #### 9 1274 #### [facility] [address] Machine Try Out Setter: Emiliano Yousif MD [facility] [place] [address] Machine Try Out Setter: Emiliano Yousif MD INTERPRETATION/RESULT: Normal [facility] Comment on above: Order Comment: 0 Result Comment: Nega tive for intraepithelial lesion or malignancy. Performed By: #### 9 1274 #### [facility] [address] Machine Try Out Setter: Emiliano Yousif MD [facility] [place] [address] Machine Try Out Setter: Emiliano Yousif MD LMP: Normal [facility] Comment on above: Order Comment: 0 Result Comment: 01/14 06/04 Performed By: #### 9 1274 #### [facility] [address] Machine Try Out Setter: Emiliano Yousif MD [facility] [address], [address] [place] [address] Machine Try Out Setter: Emiliano Yousif MD NEISSERIA GONORRHOEAE RNA, TMA, UROGENITAL Not detected Normal NOT DETECTED [facility] Comment on above: Order Comment: 0 Performed By: #### 9 1274 #### [facility], [address] [place] [address] Machine Try Out Setter: Emiliano Yousif MD [facility] [address], [address] [place] [address] Machine Try Out Setter: Emiliano Yousif MD PREV. BX: Normal [facility] Comment on above: Order Comment: 0 Result Comment: N.A Performed By: #### 9 1274 #### [facility], [address] [place] [address] Machine Try Out Setter: Emiliano Yousif MD [facility] [address], [address] [place] [address] Machine Try Out Setter: Emiliano Yousif MD PREV. PAP: Normal [facility] Comment on above: Order Comment: 0 Result Comment: 2018 NIL Performed By: #### 9 1274 #### [facility], [address] [place] [address] Machine Try Out Setter: Emiliano Yousif MD [facility] [place] [address] Machine Try Out Setter: Emiliano Yousif MD SOURCE: Normal [facility] Comment on above: Order Comment: 0 Result Comment: Cerv ix Performed By: #### 9 1274 #### [facility], [address] [place] [address] Machine Try Out Setter: Emiliano Yousif MD [facility] [address], [address] [place] [address] Machine Try Out Setter: Emiliano Yousif MD STATEMENT OF ADEQUACY: Normal [facility] Comment on above: Order Comment: 0 Result Comment: Sati sfactory for evaluation. Endocervical/transformation zone component present. Performed By: #### 9 1274 #### [facility], [address] [place] [address] Machine Try Out Setter: Emiliano Yousif MD [facility] [address] [facility], [address] [place] [address] Machine Try Out Setter: Emiliano Yousif MD Registrationon 03-06-2021 Registration [id number]#1.00CD:[address] [facility] In office Testingon 03-05-19 In office Testing [id number]# 1.00CD:[address] [facility] Consenton 03-04-2021 Consent [id number] #1.00CD:[address] [facility] CR Chest PA/LATon 08-22-2017 CR Chest PA/LAT Patient Name: DAT HIGGINS Diagnostic Radiology Exam Date/Time 08/22/2017 17:50:59 EDT Exam CR Chest PA/LAT Ordering Physician [id number] MARCIO MOE Accession Number [id number] CPT4 Codes 22629 () Reason For Exam pain Report CHEST [...] Transcribed Date and Time: 08/22/2017 6:10 Normal [facility] ABD COMPL WITH UPRIGHT PA CH ESTon 04-26-2017 ABD COMPL WITH UPRIGHT PA CHEST Performed at [facility] APPROVED BY: ANDREA EPSTEIN MD ABDOMINAL SERIES [...] an acute process. No free air. Normal [facility] Urinalysis Routineon 018 Bilirubin Urine Negative Normal Negative [facility] Comment on above: Performed By: #### L URIN ####[facility] [place] [address] Ep Cells Urine 2-5 Normal 0-5 [facility] Comment on above: Performed By: #### L URIN ####[place] [address] Hemoglobin,Urine 3+ Abnormal Negative [facility] Comment on above: Performed By: #### L URIN ####[place] [address] Ketone Urine Negative Normal Negative [facility] Comment on above: Performed By: #### L URIN ####[place] [address] Mucus Threads FEW Normal None [facility] Comment on above: Performed By: #### L URIN ####[place] [address] Nitrites Urine Negative Normal Negative [facility] Comment on above: Performed By: #### L URIN ####[place] [address] Protein Urine 1+ Abnormal Negative [facility] Comment on above: Performed By: #### L URIN ####[place] [address] Specific [place], Ur 1.025 Normal 1.005-1.030 [facility] Comment on above: Performed By: #### L URIN ####[place] [address] Urine, appearance 1+ (HAZY) Normal [facility] Comment on above: Performed By: #### L URIN ####[facility] [place] [address] Urine, bacteria in sediment FEW Abnormal None [facility] Comment on above: Performed By: #### L URIN ####[place] [address] Urine, color PALE RED Normal [facility] Comment on above: Performed By: #### L URIN ####[place] [address] Urine, erythrocytes in sediment by area /[HPF] Abnormal 0-3 [facility] Comment on above: Performed By: #### L URIN ####[place] [address] Urine, glucose presence Negative Normal Negative [facility] Comment on above: Performed By: #### L URIN ####[place] [address] Urine, leukocytes in sedmiment 0-2 Normal 0-5 [facility]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
[2025-01-26] MEDS: 0.9% Normal Saline (1000mL) 1,000 ML 999 ML IV (08:48)
[2025-01-26 09:09] LABS: Mucous, Urine 0 SEEN /hpf (<or=2+); Red Blood Cells-Urine 0 SEEN /hpf (0-5)
[2025-01-26 09:10] LABS: Hematocrit 36.2 % (37-47); Hemoglobin 11.7 g/dL (12.0-15.0); Immature Granulocytes Count 0.020 X10^3/uL (0.0-0.0); Mean Corp Hgb Conc 32.3 g/dL (32-36); Mean Corpuscular Volume 80.3 fL (81-99); Mean Platelet Vol. 9.0 fl (6.2-12.0); NRBC Flagged by Analyzer 0 % (0-5); Platelet Count 232 K/mm3 (150-450); RBC Distribution Width CV 15.5 % (11.6-14.6); RBC Distribution Width SD 44.7 fl (35.1-43.9); Red Blood Count 4.51 M/mm3 (4.2-5.4); White Blood Count 6.9 K/mm3 (4.4-11.0)
[2025-01-26 09:25] LABS: Color, Urine Yellow (Yellow); Glucose, Dipstick Normal (Normal); Ketone-Dipstick Negative (Negative); Leukocyte Esterase-Dipstick 500 /ul (Negative); Nitrite-Dipstick Negative (Negative); Occult Blood-Urine Negative /ul (Negative); Protein-Dipstick 15 mg/dl (Negative); Specific Gravity, Urine 1.020 (1.002-1.030); Urine Bilirubin Dipstick Negative (Negative)
[2025-01-26 09:36] LABS: Squamous Epithelial Cells - UA 10-25 SEEN /hpf (5-10)
[2025-01-26 09:41] LABS: Anion Gap 13 (5-15); BUN 6 mg/dL (4-19); BUN/Creat Ratio 11.8 RATIO (10-20); Calcium,Total 9.5 mg/dL (7.6-11.0); Carbon Dioxide 22.2 mmol/L (21.0-32.0); Chloride 102 mmol/L (98-108); Estimated Creatinine Clearance 162.89 ml/min (50-250); Glucose 87 mg/dL (70-99); Potassium 3.8 mmol/L (3.3-5.1)
[2025-01-26 09:55] VITALS: BP 156/100; PULSE 99; RESP 16; O2SAT 100
[2025-01-26 10:35] VITALS: BP 149/88; PULSE 88; RESP 16; TEMP 36.6; O2SAT 100
== END 2025-01-26 10:45 | disposition home or self-care (01) ==
PROVIDERS: Emergency Provider Emergency Medicine; Visit Provider Emergency Medicine
DX: O99.891 Other specified diseases and conditions complicating pregnancy (principal); R10.9 Unspecified abdominal pain; Z3A.12 12 weeks gestation of pregnancy
CPT/HCPCS: 76817; 80048; 81001; 84702; 85025; 86900; 86901; 87086; 87088; 96360; 99283; A4216